=== PATIENT | male | born 1945 | race Caucasian/White ===

== ENCOUNTER 2016-11-18 19:38 | Emergency (ER) | payer MEDICARE, OTHER ==
--- NOTE | 2016-11-18 20:56 | EKG REPORT ---
SEVERITY:- ABNORMAL ECG - SINUS RHYTHM VENTRICULAR PREMATURE COMPLEX PROBABLE LEFT ATRIAL ABNORMALITY NONSPECIFIC INTRAVENTRICULAR CONDUCTION DELAY LEFT VENTRICULAR HYPERTROPHY : Confirmed by: Andrea Leach 18-Nov-2016 20:55:58
[2016-11-18] MEDS ORDERED: ASPIRIN 81 MG TABLET, CHEWABLE PO ONE (21:00)
--- NOTE | 2016-11-18 22:00 | RADIOLOGY REPORT (SQ) ---
EXAM DESCRIPTION: CHEST SINGLE VIEW COMPLETED DATE/TIME: 11/18/2016 9:50 pm REASON FOR STUDY: chest pain COMPARISON: 07/23/2015 EXAM PARAMETERS: NUMBER OF VIEWS: One view. TECHNIQUE: Single frontal radiographic view of the chest acquired. RADIATION DOSE: NA LIMITATIONS: None. FINDINGS: LUNGS AND PLEURA: No opacities, masses or pneumothorax. No pleural effusion. MEDIASTINUM AND HILAR STRUCTURES: No masses. Contour normal. HEART AND VASCULAR STRUCTURES: Heart normal in size. Normal vasculature. BONES: No acute findings. HARDWARE: Pacemaker defibrillator device expected location. OTHER: No other significant finding. IMPRESSION: NO ACUTE RADIOGRAPHIC FINDING IN THE CHEST. TECHNICAL DOCUMENTATION: JOB ID: [id number]
[2016-11-18 22:18] LABS: ABSOLUTE BASOPHILS # (AUTO) 0.1 10^3/uL (0.0-0.2); ABSOLUTE EOSINOPHILS # (AUTO) 0.1 10^3/uL (0.0-0.6); ABSOLUTE LYMPHOCYTES (AUTO) 1.5 10^3/uL (0.5-4.7); ABSOLUTE NEUT (AUTO) 5.6 10^3/uL (1.7-8.2); EOSINOPHILS % (AUTO) 1.6 % (0-6); HEMATOCRIT 41.2 % (37.9-51.0); HEMOGLOBIN 12.9 g/dL (13.5-17.0); HGB HCT DIFFERENCE -2.5; LYMPHOCYTES % (AUTO) 17.7 % (13-45); MEAN CORPUSCULAR HEMOGLOBIN 25.5 pg (27.0-33.4); MEAN CORPUSCULAR HGB CONC 31.3 g/dL (32.0-36.0); MEAN CORPUSCULAR VOLUME 81 fl (80-97); MONOCYTES % (AUTO) 11.9 % (3-13); RED BLOOD COUNT 5.06 10^6/uL (4.35-5.55); RED CELL DISTRIBUTION WIDTH 17.1 % (11.5-14.0); SEGMENTED NEUTROPHILS % (AUTO) 67.8 % (42-78); WHITE BLOOD COUNT 8.2 10^3/uL (4.0-10.5)
[2016-11-18 22:32] LABS: ALANINE AMINOTRANSFERASE 25 U/L (21-72); ALBUMIN 4.1 g/dL (3.5-5.0); ALKALINE PHOSPHATASE 125 U/L (38-126); ANION GAP 14 (5-19); ASPARTATE AMINO TRANSFERASE 16 U/L (17-59); BILIRUBIN,DIRECT 0.3 mg/dL (0.0-0.4); BILIRUBIN,TOTAL 0.5 mg/dL (0.2-1.3); BLOOD UREA NITROGEN 22 mg/dL (7-20); CALCIUM 9.4 mg/dL (8.4-10.2); CARBON DIOXIDE 25 mmol/L (22-30); CHLORIDE 103 mmol/L (98-107); CREATINE KINASE 53 U/L (55-170); CREATININE RESULT 0.87 mg/dL (0.52-1.25); GLUCOSE 175 mg/dL (75-110); SODIUM 141.9 mmol/L (137-145); TOTAL PROTEIN 7.2 g/dL (6.3-8.2)
[2016-11-18 22:44] LABS: CREATINE KINASE MB 1.15 ng/mL (<4.55); TROPONIN I 0.022 ng/mL
--- NOTE | 2016-11-18 22:44 | ER Document Report ---
ED General - General Chief Complaint: Chest Pain Stated Complaint: CHEST PAIN Time Seen by Provider: 11/18/16 22:32 Notes: Patient is a 71-year-old male who comes emergency department for chief complaint of 3 days of congestion in his chest with mild cough, mild sore throat , some possible postnasal drip. He denies shortness of breath but he states he wants to find out if he is getting "fluid on his lungs". He denies chest pain except during coughing episodes, he denies fever. Patient does have an extensive cardiac history including CABG, multiple stents, CHF with ejection fraction of 35%, he takes Lasix, Plavix. He denies any smoking, asthma/COPD history, or history of frequent pneumonias. TRAVEL OUTSIDE OF THE [place] IN LAST 30 DAYS: No - Related Data Allergies/Adverse Reactions: acetaminophen [From Percocet] Allergy (Verified 08/27/12 17:29) aspirin [Aspirin] Allergy (Verified 08/27/12 17:29) iodine [Iodine] Allergy (Verified 08/27/12 17:29) oxycodone HCl [From Percocet] Allergy (Verified 08/27/12 17:29) IV contrast Allergy (Uncoded 08/27/12 17:29) Past Medical History - General Information source: Patient - Social History Smoking Status: Never Smoker Frequency of alcohol use: None Drug Abuse: None Lives with: Family Family History: Other Patient has suicidal ideation: No Patient has homicidal ideation: No - Past Medical History Cardiac Medical History: Reports: Hx Heart Attack - x5, Hx Hypertension Endocrine Medical History: Reports: Hx Diabetes Mellitus Type 2 - IDDM Renal/ Medical History: Denies: Hx Peritoneal Dialysis GI Medical History: Reports: Hx Diverticulitis Past Surgical History: Reports: Hx Cardiac Catheterization, Hx Cardiac Surgery - stents x 6, triple bypass, Hx Cholecystectomy, Hx Coronary Artery Bypass Graft , Hx Coronary Stent - x 10 - Immunizations Hx Diphtheria, Pertussis, Tetanus Vaccination: No Review of Systems - Review of Systems Constitutional: No symptoms reported EENT: See HPI Cardiovascular: See HPI Respiratory: See HPI Gastrointestinal: No symptoms reported Genitourinary: No symptoms reported Male Genitourinary: No symptoms reported Musculoskeletal: No symptoms reported Skin: No symptoms reported Hematologic/Lymphatic: No symptoms reported Neurological/Psychological: No symptoms reported Physical Exam - Vital signs Vitals: Temp Pulse Resp BP Pulse Ox 98.3 F 87 20 171/57 H 93 11/18/16 19:49 11/18/16 19:49 11/18/16 19:49 11/18/16 19:49 11/18/16 19:49 Interpretation: Normal - General General appearance: Appears well, Alert In distress: None - Patient is talkative, alert, well-appearing. He appears younger than his stated age - HEENT Head: Normocephalic, Atraumatic Eyes: Normal Conjunctiva: Normal Extraocular movements intact: Yes Eyelashes: Normal Pupils: PERRL Ears: Normal External canal: Normal Tympanic membrane: Normal Sinus: Other - Tenderness over frontal and maxillary sinuses Nasal: Normal Mouth/Lips: Normal Mucous membranes: Normal Pharynx: Erythema - Algorithm of the posterior pharynx. No: Peritonsillar abscess, Retropharyngeal abscess, Tonsillar hypertrophy, Uvular edema, Potential airway comprom. Neck: Normal. No: Anterior cervical chain, Posterior cervical chain - Respiratory Respiratory status: No respiratory distress. No: Labored, Tachypnea Chest status: Nontender Breath sounds: Normal, Nonproductive cough - Occasional congested sounding nonproductive cough. No: Decreased air movement, Rales, Rhonchi, Stridor, Wheezing Chest palpation: Normal - Cardiovascular Rhythm: Regular. No: Tachycardia Heart sounds: Normal auscultation, S1 appreciated, S2 appreciated Murmur: No - Abdominal Inspection: Normal Distension: No distension Bowel sounds: Normal Tenderness: Nontender Organomegaly: No organomegaly - Back Back: Normal, Nontender - Extremities General upper extremity: Normal inspection, Nontender, Normal color, Normal ROM , Normal temperature General lower extremity: Normal inspection, Nontender, Normal color, Normal ROM , Normal temperature, Normal weight bearing. No: Charles's sign - Neurological Neuro grossly intact: Yes Cognition: Normal Orientation: AAOx4 Veronica Coma Scale Eye Opening: Spontaneous Veronica Coma Scale Verbal: Oriented [place] Coma Scale Motor: Obeys Commands [place] Coma Scale Total: 15 Speech: Normal Motor strength normal: LUE, RUE, LLE, RLE Sensory: Normal - Psychological Associated symptoms: Normal affect, Normal mood - Skin Skin Temperature: Warm Skin Moisture: Dry Skin Color: Normal Course - Re-evaluation Re-evalutation: Patient with mildly hoarse voice and mildly erythematous throat on exam, has tenderness over his sinuses, and occasional congested cough. He is denying any chest pain. He denies shortness of breath. Patient is very conversational and well-appearing otherwise, no tachypnea, full lung sounds, no hypoxia, no tachycardia or hypotension. CBC unremarkable, chemistry unremarkable, BNP below baseline, cardiac enzymes at baseline, EKG with no acute changes, chest x-ray with no acute abnormality. Per patient, patient satisfied with workup, states he just wants coverage to avoid pneumonia or a worsening sinus infection, states that he is ready to leave. Patient states that he understands fully return precautions and states that he will absolutely return if he starts developing chest pain, shortness of breath, or any other worsening symptoms. Patient has good cardiology follow- up. Patient will be covered with doxycycline for sinusitis/pneumonia prevention , patient ambulated easily from the department. - Vital Signs Vital signs: Temp Pulse Resp BP Pulse Ox 98.3 F 87 15 142/58 H 93 11/18/16 19:49 11/18/16 19:49 11/18/16 23:01 11/18/16 23:01 11/18/16 23:01 - Laboratory Result Diagrams: 11/18/16 21:39 11/18/16 21:39 Laboratory results interpreted by me: 11/18/16 11/18/16 11/18/16 21:39 21:39 21:39 Hgb 12.9 L MCH 25.5 L MCHC 31.3 L RDW 17.1 H BUN 22 H Glucose 175 H AST 16 L Creatine Kinase 53 L NT-Pro-B Natriuret Pep 1060 H Discharge - Discharge Clinical Impression: Cough, Sinus congestion Upper respiratory infection Qualifiers: URI type: unspecified URI Qualified Code(s): J06.9 - Acute upper respiratory infection, unspecified Condition: Stable Disposition: HOME, SELF-CARE Additional Instructions: Workup does not show any congestive heart failure exacerbation or any other concerning abnormalities. Physical examination and symptoms are most consistent with an upper respiratory viral infection and also sinus infection. Take the antibiotics as prescribed, follow-up closely with your primary care provider. Return to emergency department for any concerning or worsening symptoms including difficulty breathing, fever, chest pain, or any other concerning symptoms. Prescriptions: Doxycycline Hyclate 100 mg PO BID #14 capsule Referrals: JIM AGUILAR MD [Primary Care Provider] - Follow up as needed
[2016-11-18] MEDS ORDERED: DOXYCYCLINE HYCLATE 100 MG TABLET PO ONE (23:36)
[2016-11-18 23:53] VITALS: BP 142/58
== END 2016-11-18 23:53 | disposition home or self-care (01) ==
LOC: ER 19:38
DX: J06.9 Acute upper respiratory infection, unspecified (principal); R09.89 Other specified symptoms and signs involving the circulatory and respiratory systems; R05 Cough; J02.9 Acute pharyngitis, unspecified; R49.0 Dysphonia; R09.81 Nasal congestion; R07.89 Other chest pain; I11.0 Hypertensive heart disease with heart failure; I50.9 Heart failure, unspecified; I25.2 Old myocardial infarction; Z98.61 Coronary angioplasty status; Z95.1 Presence of aortocoronary bypass graft; Z79.899 Other long term (current) drug therapy; Z79.02 Long term (current) use of antithrombotics/antiplatelets; Z88.5 Allergy status to narcotic agent; Z88.6 Allergy status to analgesic agent; Z91.041 Radiographic dye allergy status
CPT/HCPCS: 93005; 99285; 36415; 82553; 82550; 85025; 80053; 84484; 83880; 71010; 93010; A9270

== ENCOUNTER 2018-01-01 07:40 | Emergency (ER) | payer MEDICARE, OTHER ==
--- NOTE | 2018-01-01 08:51 | ER Document Report ---
ED General - General Chief Complaint: Abdominal Pain Stated Complaint: ABDOMINAL PAIN Mode of Arrival: Ambulatory Information source: Patient TRAVEL OUTSIDE OF THE [place] IN LAST 30 DAYS: No - HPI Notes: 72-year-old male with a history of CABG, CHF, diabetes type 2 cardiac stents, EF 65% and diverticulitis presents to the emergency room for complaints of lower abdominal pain 3 days, worse this morning, states that pain comes in waves and is jabbing pain. Patient states he has not been eating much in the last 3 days that has been drinking. States he did use the bathroom last night which did help with his pain. reports that patient was febrile last night , was warm to touch, no temperature was taken. has not tried any over-the- counter medications. Denies radiation of pain. Patient reports he had a history of diverticulitis 5 years ago. Denies fevers, chills, chest pain, palpitations, shortness of breath, dyspnea, nausea, vomiting, diarrhea, hematuria,blurred vision, double vision, loss of vision, speech changes, LH, dizziness, syncope, headaches, wheezing, ST, URI, neck pain, weakness, bowel or bladder dysfunction, saddle anesthesia, numbness or tingling in bilateral upper or lower extremities equally, muscle paralysis, weakness in bilateral upper or lower extremities equally or rash. Denies IV drug use. Patient is seen by Dr. Hutchins who is his fueler in [place] for his diabetes and chronic renal failure, Dr. Rubio in [place] as his diabetic physician, Dr. Aguilar is his primary care provider in [facility] [place] and Dr. Garrett Cain is his vascular surgeon for having stents placed in his lower legs for PVD - Related Data Allergies/Adverse Reactions: aspirin [Aspirin] Allergy (Verified 08/27/12 17:29) cephalexin [From Keflex] Allergy (Verified 01/01/18 07:43) iodine [Iodine] Allergy (Verified 08/27/12 17:29) oxycodone HCl [From Percocet] Allergy (Verified 08/27/12 17:29) IV contrast Allergy (Uncoded 08/27/12 17:29) Past Medical History - General Information source: Patient, Friend - Social History Smoking Status: Unknown if Ever Smoked Family History: Reviewed & Not Pertinent, Other - Past Medical History Cardiac Medical History: Reports: Hx Heart Attack - x5, Hx Hypertension Endocrine Medical History: Reports: Hx Diabetes Mellitus Type 2 - IDDM Renal/ Medical History: Denies: Hx Peritoneal Dialysis GI Medical History: Reports: Hx Diverticulitis Past Surgical History: Reports: Hx Cardiac Catheterization, Hx Cardiac Surgery - stents x 6, triple bypass, Hx Cholecystectomy, Hx Coronary Artery Bypass Graft , Hx Coronary Stent - x 10 - Immunizations Hx Diphtheria, Pertussis, Tetanus Vaccination: No Review of Systems - Review of Systems Constitutional: No symptoms reported EENT: No symptoms reported Cardiovascular: No symptoms reported Respiratory: No symptoms reported Gastrointestinal: See HPI Genitourinary: No symptoms reported Male Genitourinary: No symptoms reported Musculoskeletal: No symptoms reported Skin: No symptoms reported Hematologic/Lymphatic: No symptoms reported Neurological/Psychological: No symptoms reported Physical Exam - Vital signs Vitals: Temp Pulse Resp BP Pulse Ox 98.0 F 85 16 133/49 H 97 01/01/18 07:47 01/01/18 07:47 01/01/18 07:47 01/01/18 07:47 01/01/18 07:47 - Notes Notes: PHYSICAL EXAMINATION: GENERAL: Well-appearing, well-nourished and in no acute distress. HEAD: Atraumatic, normocephalic. EYES: Pupils equal round and reactive to light, extraocular movements intact, sclera anicteric, conjunctiva are normal. ENT: Nares patent, oropharynx clear without exudates. Moist mucous membranes. NECK: Normal range of motion, supple without lymphadenopathy LUNGS: Breath sounds clear to auscultation bilaterally and equal. No wheezes rales or rhonchi. HEART: Regular rate and rhythm without murmurs ABDOMEN: Soft, nondistended abdomen. Right lower and left lower quadrant palpation with rebound on the right, no guarding. No masses appreciated. No CVA tenderness noted bilaterally Musculoskeletal: Normal range of motion, no pitting or edema. No cyanosis. NEUROLOGICAL: Cranial nerves grossly intact. Normal speech, normal gait. Normal sensory, motor exams PSYCH: Normal mood, normal affect. SKIN: Warm, Dry, normal turgor, no rashes or lesions noted. Course - Re-evaluation Re-evalutation: 01/01/18 16:37 72-year-old male with an extensive cardiac history presents for evaluation of lower abdominal pain. Afebrile, vitals stable and in no distress. CBC negative for leukocytosis, noted anemia. BNP 938 which is below his baseline he is asymptomatic. Creatinine is 0.99 which has been the lowest for him. Lactic is 1.6, lipase 32.6, potassium 4.6. Patient given IV fluids. Urinalysis does show glucose, no hematuria, leukocytosis. Occult stool negative , C. difficile negative. CT abdomen pelvis with IV and oral contrast does show sigmoid diverticulitis. Has had loose stool. Was concerned about C. difficile , will start patient on Flagyl and Cipro now and sent home with outpatient prescriptions. Advised to follow-up with primary care provider for diverticulitis. Discussed with patient the importance of following up with gastroenterology for diverticulitis within 3 days. Advised to eat yogurt to prevent loosening stool and to also take probiotics 2 hours after taking antibiotics to replenish normal gut Paulette. If he experiences any worsening abdominal pain, notices any black tarry stool, fever, cp, sob, n/v/d, or any other worsening symptoms to return to the emergency room immediately. Advised patient double up on his Lasix orally at home since he did not want IV Lasix in the ER due to having increased urination a low-salt diet. after performing a Medical Screening Examination, I estimate there is LOW risk for ACUTE APPENDICITIS, BOWEL OBSTRUCTION, ACUTE CHOLECYSTITIS, PERFORATED DIVERTICULITIS , INCARCERATED HERNIA, PANCREATITIS, TESTICULAR TORSION or PERFORATED ULCER, thus I consider the discharge disposition reasonable. Also, there is no evidence or peritonitis, sepsis, or toxicity. I have reevaluated this patient multiple times and no significant life threatening changes are noted. The patient and I have discussed the diagnosis and risks, and we agree with discharging home with close follow-up with the understanding that symptoms and presentations can change. We also discussed returning to the Emergency Department immediately if new or worsening symptoms occur. We have discussed the symptoms which are most concerning (e.g., bloody stool, fever, changing or worsening pain, intractable vomiting - standard verbal up date) that necessitate immediate return. - Vital Signs Vital signs: Temp Pulse Resp BP Pulse Ox 99.4 F 85 16 151/59 H 98 01/01/18 14:46 01/01/18 07:47 01/01/18 14:18 01/01/18 14:18 01/01/18 14:18 - Laboratory Result Diagrams: 01/01/18 09:30 01/01/18 09:30 Laboratory results interpreted by me: 01/01/18 01/01/18 01/01/18 09:30 09:30 09:30 Hgb 10.4 L Hct 33.3 L MCV 73 L MCH 22.9 L MCHC 31.2 L RDW 16.9 H Seg Neutrophils % 78.4 H Lymphocytes % 10.3 L BUN 23 H Glucose 122 H POC Glucose AST 15 L NT-Pro-B Natriuret Pep 938 H Urine Glucose (UA) 01/01/18 01/01/18 12:00 14:26 Hgb Hct MCV MCH MCHC RDW Seg Neutrophils % Lymphocytes % BUN Glucose POC Glucose 135 H AST NT-Pro-B Natriuret Pep Urine Glucose (UA) >=500 H Discharge - Discharge Clinical Impression: Diverticulitis, Mild congestive heart failure Condition: Stable Disposition: HOME, SELF-CARE Instructions: Abdominal Pain ([facility]), Diverticulitis ([facility]) Additional Instructions: You were seen today for focal pain in your left lower quadrant. Your labs, exam , and imaging suggest a diagnosis of diverticulitis. This is an inflammation of a part of your colon. You are being started on antibiotics to treat this infection and inflammation. Please take all of them as directed and complete them even if your symptoms resolve. 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 Program for warehouse laborer. return to the emergency department immediately if you develop worsening pain, persistent vomiting, began having bloody stools, develop a fever of greater than 101F, or have any other symptoms that are concerning to you. Take antibiotics with food to prevent loose stool. Return immediately for any new or worsening symptoms.Follow a low-salt diet. Double up on your Lasix tonight when you get home. Continue a low sodium diet and high potassium diet with food such as bananas. Follow up with primary care provider, call tomorrow to make followup appointment. Prescriptions: Ciprofloxacin HCl [Cipro 500 mg Tablet] 500 mg PO BID #20 tablet Metronidazole [Flagyl 500 mg Tablet] 500 mg PO Q6H #28 tablet Referrals: COLLEEN HUTCHINS MD [NO LOCAL MD] - Follow up as needed ERIK DE LA FUENTE MD [ACTIVE STAFF] - Follow up in 3-5 days MARTHA RUBIO MD [NO LOCAL MD] - Follow up as needed JIM AGUILAR MD [Primary Care Provider] - Follow up in 3-5 days TANJA AVERY MD [EMERITUS] - Follow up in 3-5 days
[2018-01-01] MEDS ORDERED: NORMAL SALINE 1000 ML 1,000 ML IV PRN (08:52)
[2018-01-01 10:14] LABS: ABSOLUTE BASOPHILS # (AUTO) 0.1 10^3/uL (0.0-0.2); ABSOLUTE EOSINOPHILS # (AUTO) 0.1 10^3/uL (0.0-0.6); ABSOLUTE NEUT (AUTO) 7.5 10^3/uL (1.7-8.2); BASOPHILS % (AUTO) 0.5 % (0-2); EOSINOPHILS % (AUTO) 0.8 % (0-6); HEMATOCRIT 33.3 % (37.9-51.0); HEMOGLOBIN 10.4 g/dL (13.5-17.0); LYMPHOCYTES % (AUTO) 10.3 % (13-45); MEAN CORPUSCULAR HEMOGLOBIN 22.9 pg (27.0-33.4); MEAN CORPUSCULAR HGB CONC 31.2 g/dL (32.0-36.0); MEAN CORPUSCULAR VOLUME 73 fl (80-97); PLATELET COUNT 218 10^3/uL (150-450); RED BLOOD COUNT 4.55 10^6/uL (4.35-5.55); RED CELL DISTRIBUTION WIDTH 16.9 % (11.5-14.0); SEGMENTED NEUTROPHILS % (AUTO) 78.4 % (42-78); TOTAL CELLS COUNTED % (AUTO) 100 %; WHITE BLOOD COUNT 9.6 10^3/uL (4.0-10.5)
[2018-01-01 10:16] LABS: ALANINE AMINOTRANSFERASE 24 U/L (21-72); ALBUMIN 3.9 g/dL (3.5-5.0); ALKALINE PHOSPHATASE 82 U/L (38-126); ANION GAP 14 (5-19); ASPARTATE AMINO TRANSFERASE 15 U/L (17-59); BILIRUBIN,DIRECT 0.2 mg/dL (0.0-0.4); BILIRUBIN,TOTAL 0.8 mg/dL (0.2-1.3); BLOOD UREA NITROGEN 23 mg/dL (7-20); CALCIUM 9.1 mg/dL (8.4-10.2); CARBON DIOXIDE 28 mmol/L (22-30); CHLORIDE 102 mmol/L (98-107); GLUCOSE 122 mg/dL (75-110); LIPASE 32.6 U/L (23-300); POTASSIUM 4.6 mmol/L (3.6-5.0); SODIUM 143.6 mmol/L (137-145); TOTAL PROTEIN 6.7 g/dL (6.3-8.2)
[2018-01-01 12:32] LABS: APPEARANCE,URINE CLEAR; BILIRUBIN,URINE NEGATIVE (NEGATIVE); COLOR,URINE YELLOW; GLUCOSE, URINE >=500 mg/dL (NEGATIVE); KETONES,URINE NEGATIVE (NEGATIVE); LEUKOCYTE ESTERASE,URINE NEGATIVE (NEGATIVE); NITRITE,URINE NEGATIVE (NEGATIVE); PROTEIN,URINE NEGATIVE (NEGATIVE); URINE SPECIFIC GRAVITY 1.018; UROBILINOGEN,URINE NEGATIVE mg/dL (<2.0)
--- NOTE | 2018-01-01 12:54 | RADIOLOGY REPORT (SQ) ---
EXAM DESCRIPTION: CT ABD/PELVIS WITH IV ORAL COMPLETED DATE/TIME: 01/01/2018 12:44 pm REASON FOR STUDY: RLQ, LLQ abd pain, history of diverticulitis COMPARISON: None. TECHNIQUE: CT scan of the abdomen and pelvis performed with intravenous and oral contrast using rani vickie scanning technique with dynamic intravenous contrast injection. Images reviewed with lung, soft t issue, and bone windows. Reconstructed coronal and sagittal MPR images reviewed. Delayed images for e valuation of the urinary system also acquired. All images stored on PACS. All CT scanners at this facility use dose modulation, iterative reconstruction, and/or weight based d osing when appropriate to reduce radiation dose to as low as reasonably achievable (ALARA). [facility]: Dose Right [facility]: CareDose [facility]: Dose Right [facility]: Teradose 4D [facility]: Mix & Meet CONTRAST TYPE AND DOSE: contrast/concentration: Isovue 350.00 mg/ml; Total Contrast Delivered: 85.0 ml; Total Saline Delivered: 68.0 ml RENAL FUNCTION: BUN 23 creatinine 1.0 RADIATION DOSE: CT Rad equipment meets quality standard of care and radiation dose reduction techniq ues were employed. CTDIvol: 9.2 - 12.8 mGy. DLP: 1325 mGy-cm. . LIMITATIONS: None. FINDINGS: LOWER CHEST: Pacemaker. No acute findings. LIVER: Normal size. No masses. No dilated ducts. SPLEEN: Normal size. No focal lesions. PANCREAS: No masses. No significant calcifications. No adjacent inflammation or peripancreatic fluid collections. Pancreatic duct not dilated. GALLBLADDER: Surgically absent. ADRENAL GLANDS: No significant masses or asymmetry. RIGHT KIDNEY AND URETER: No solid masses. Vascular calcifications. No definite urinary tract stone s. No hydronephrosis or hydroureter. LEFT KIDNEY AND URETER: No solid masses. Vascular calcifications. No definite urinary tract stones . No hydronephrosis or hydroureter. AORTA AND VESSELS: No aneurysm. RETROPERITONEUM: No retroperitoneal adenopathy, hemorrhage or masses. BOWEL AND PERITONEAL CAVITY: Mesenteric inflammation associated with segment of sigmoid colon contain ing diverticulum. No organized gas fluid collection. No free air or ascites. APPENDIX: Not visualized. PELVIS: No significant masses. Normal bladder. No free fluid. ABDOMINAL WALL: No masses. No hernias. BONES: No acute findings. OTHER: No other significant finding. IMPRESSION: Sigmoid diverticulitis. TECHNICAL DOCUMENTATION: JOB ID: [id number] Quality ID # [id number]: Final reports with documentation of one or more dose reduction techniques (e.g., Au tomated exposure control, adjustment of the mA and/or kV according to patient size, use of iterative reconstruction technique) 2010 [employer]- All Rights Reserved Reading location - IP/workstation name: [email or web address]
[2018-01-01] MEDS ORDERED: MORPHINE SULFATE 10 MG/ML INJ IV ONE (13:58)
[2018-01-01] MEDS ORDERED: CIPROFLOXACIN HCL 500 MG TABLET PO ONE (13:59)
[2018-01-01] MEDS ORDERED: METRONIDAZOLE 500 MG TABLET PO ONE (13:59)
[2018-01-01] MEDS ORDERED: FUROSEMIDE INJ/PF 40 MG/4 ML SDV IV ONE (14:25)
[2018-01-01 14:47] VITALS: BP 151/59
[2018-01-01] MEDS ORDERED: METRONIDAZOLE 500 MG/NS RTU 500 MG/100 ML RTUPB IV ONE (15:00)
== END 2018-01-01 15:15 | disposition home or self-care (01) ==
LOC: ER 07:40
DX: K57.32 Diverticulitis of large intestine without perforation or abscess without bleeding (principal); I13.0 Hypertensive heart and chronic kidney disease with heart failure and stage 1 through stage 4 chronic kidney disease, or unspecified chronic kidney disease; I50.9 Heart failure, unspecified; N18.9 Chronic kidney disease, unspecified; E11.22 Type 2 diabetes mellitus with diabetic chronic kidney disease; D64.9 Anemia, unspecified; R19.4 Change in bowel habit; I25.2 Old myocardial infarction; Z95.5 Presence of coronary angioplasty implant and graft; Z95.1 Presence of aortocoronary bypass graft; Z90.49 Acquired absence of other specified parts of digestive tract; Z79.899 Other long term (current) drug therapy
CPT/HCPCS: 99284; 96361; 96375; 96365; 36415; 82962; 83605; 83690; 85025; 82272; 80053; 81001; 87493; 83880; 74177; A9270; J2270; J7030

== ENCOUNTER 2018-03-20 07:26 | Day surgery (SDC) | payer MEDICARE, OTHER ==
[~2018-03-20 07:26] MED LIST: CHONDR SU A NA/HYALUR INTRAOC KIT (SURGICARE) ONE; EPINEPHRINE INJ/PF 1 MG/1 ML AMPULE ONE; KETOROLAC TROMETHAMINE 0.45% 4 DROP/0.4 ML DROPERETTE OD PRN; LIDOCAINE 1%/PHENYLEPHRINE 1.5% 1 ML VIAL ONE; MIDAZOLAM 2 MG/2 ML INJ ONE
[2018-03-20] MEDS: TETRACAINE HCL 0.5% OPH SOLN 4 ML OD PRN ×3 (08:04→08:31)
[2018-03-20] MEDS: BESIFLOXACIN HCL 0.6% OPH SUSP 5 ML BOTTLE OD PRN ×4 (08:05→08:58)
[2018-03-20] MEDS: CYCLOPENTOLATE 0.2%/PHENYLEPHRINE 1% OPH SOLN 2 ML OD PRN ×3 (08:05→08:26)
[2018-03-20] MEDS: TROPICAMIDE 1% OPH SOLN 3 ML OD PRN ×3 (08:05→08:26)
--- NOTE | 2018-03-20 14:21 | [facility] OPERATIVE REPORT E ---
[facility] Operative Report NAME: JUAN HOLLY AGE: 72Y DATE OF SURGERY: 03/20/2018 ROOM: PREOPERATIVE DIAGNOSIS: CATARACT, RIGHT EYE. POSTOPERATIVE DIAGNOSIS: CATARACT, RIGHT EYE. OPERATION: Cataract extraction with insertion of an IOL of the right eye. SURGEON: MARY VERAS M.D. ANESTHESIA: Topical. PROCEDURE: After obtaining appropriate consent, the patient's right eye was prepped and draped in sterile fashion as well as the surgeon in a sterile manner and cataract surgery was started. First a paracentesis blade was used to make a side-port incision. Viscoelastic was used to inflate the anterior chamber. Next a 2.4 mm incision was made with a 2.4 mm blade, clear corneal temporally. A continuous capsulorrhexis was made using a cystotome and Utrata forceps. Following this hydrodissection was carried out to make the lens fully loose and mobile and it was rotated 90 degrees. Following this, a lgsuih-crz-aglncaf technique was used to phacoemulsify the lens with a CDE of 6.32. The remaining cortex was removed with irrigation/aspiration. Provisc was instilled into the capsular bag to inflate the bag. A SN60WF, 23.5 diopter lens was placed. The remaining viscoelastic material was removed with irrigation/aspiration. Following this, the incision was found to be watertight. Besivance was instilled into the eye and a protective shield was placed over the eye. The patient returned to the postoperative recovery in stable condition. DICTATING PHYSICIAN: MARY VERAS M.D. [id number] PHY#: [id number] ID: [id number] JOB#: [id number] ACCT: [id number] cc:MARY VERAS M.D. >
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
== END 2018-03-20 09:46 | disposition home or self-care (01) ==
LOC: SC 07:26
PROVIDERS: ATTEND Internal Medicine
DX: H25.813 Combined forms of age-related cataract, bilateral (principal); H57.03 Miosis; H01.002 Unspecified blepharitis right lower eyelid; H01.005 Unspecified blepharitis left lower eyelid; E11.3293 Type 2 diabetes mellitus with mild nonproliferative diabetic retinopathy without macular edema, bilateral; M19.90 Unspecified osteoarthritis, unspecified site; E78.00 Pure hypercholesterolemia, unspecified; I50.9 Heart failure, unspecified; I25.2 Old myocardial infarction; Z79.4 Long term (current) use of insulin; Z87.891 Personal history of nicotine dependence; Z88.6 Allergy status to analgesic agent; Z88.5 Allergy status to narcotic agent; Z79.82 Long term (current) use of aspirin; Z79.84 Long term (current) use of oral hypoglycemic drugs; Z79.899 Other long term (current) drug therapy; Z91.040 Latex allergy status; Z95.810 Presence of automatic (implantable) cardiac defibrillator
CPT/HCPCS: 66984; 82962; V2632; J2250; J3490 ×2; A9270; J0171; J2370; 142

== ENCOUNTER 2018-04-19 06:49 | Day surgery (SDC) | payer MEDICARE, OTHER ==
[~2018-04-19 06:49] MED LIST changes: -CHONDR SU A NA/HYALUR INTRAOC KIT (SURGICARE) ONE; -EPINEPHRINE INJ/PF 1 MG/1 ML AMPULE ONE; -KETOROLAC TROMETHAMINE 0.45% 4 DROP/0.4 ML DROPERETTE OD PRN; +KETOROLAC TROMETHAMINE 0.45% 4 DROP/0.4 ML DROPERETTE OS PRN; -LIDOCAINE 1%/PHENYLEPHRINE 1.5% 1 ML VIAL ONE; -MIDAZOLAM 2 MG/2 ML INJ ONE
[2018-04-19] MEDS: TETRACAINE HCL 0.5% OPH SOLN 4 ML OS PRN ×3 (07:05→07:48)
[2018-04-19] MEDS: TROPICAMIDE 1% OPH SOLN 3 ML OS PRN ×3 (07:06→07:36)
[2018-04-19] MEDS: CYCLOPENTOLATE 0.2%/PHENYLEPHRINE 1% OPH SOLN 2 ML OS PRN ×3 (07:06→07:36)
[2018-04-19] MEDS: BESIFLOXACIN HCL 0.6% OPH SUSP 5 ML BOTTLE OS PRN ×4 (07:06→08:23)
[2018-04-19] MEDS ORDERED: MIDAZOLAM 2 MG/2 ML INJ ONE (07:18)
[2018-04-19] MEDS ORDERED: LIDOCAINE 1% INJ-PF (10 MG/ML) 30 ML SDV ONE (07:22)
[2018-04-19] MEDS ORDERED: CHONDR SU A NA/HYALUR INTRAOC KIT (SURGICARE) ONE (07:23)
[2018-04-19] MEDS ORDERED: EPINEPHRINE INJ/PF 1 MG/1 ML AMPULE ONE (07:38)
[2018-04-19] MEDS ORDERED: LIDOCAINE 1%/PHENYLEPHRINE 1.5% 1 ML VIAL ONE (07:38)
--- NOTE | 2018-04-19 19:57 | [facility] OPERATIVE REPORT E ---
[facility] Operative Report NAME: JUAN HOLLY AGE: 72Y DATE OF SURGERY: 04/19/2018 ROOM: PREOPERATIVE DIAGNOSIS: CATARACT, LEFT EYE. Miosis left eye POSTOPERATIVE DIAGNOSIS: CATARACT, LEFT EYE. Miosis Left eye OPERATION: Complex Cataract extraction with insertion of an IOL of the left eye and use of a maluygan ring SURGEON: MARY VERAS M.D. ANESTHESIA: Topical. PROCEDURE: After obtaining appropriate consent, the patient's left eye was prepped and draped in sterile fashion as well as the surgeon in a sterile manner and cataract surgery was started. First a paracentesis blade was used to make a side-port incision. Viscoelastic was used to inflate the anterior chamber. Next a 2.4 mm incision was made with a 2.4 mm blade, clear corneal temporally. A continuous capsulorrhexis was made using a cystotome and Utrata forceps. Following this hydrodissection was carried out to make the lens fully loose and mobile and it was rotated 90 degrees. Following this, a [id number]-[id number] technique was used to phacoemulsify the lens with a CDE of 10.81. The remaining cortex was removed with irrigation/aspiration. Provisc was instilled into the capsular bag to inflate the bag. A SN60WF, 24.5 diopter lens was placed. The remaining viscoelastic material was removed with irrigation/aspiration. Following this, the incision was found to be watertight. Besivance was instilled into the eye and a protective shield was placed over the eye. The patient returned to the postoperative recovery in stable condition. prior to making the capsulorhexis a maluygan ring was inseerted due to poor pupillary dilation. this was removed at the end of the case. DICTATING PHYSICIAN: MARY VERAS M.D. [id number] PHY#: [id number] ID: [id number] JOB#: [id number] ACCT: [id number] cc:MARY VERAS M.D. > MTDD
--- NOTE | 2018-04-19 20:01 | [facility] DISCHARGE SUMMARY E ---
[facility] Discharge Summary NAME: JUAN HOLLY AGE: 72Y ADMITTED: 04/19/2018 DISCHARGED: This is a 72-year-old who underwent cataract extraction of the left eye, complex, with use of a Malyugin ring due to poor pupillary dilation of 4mm. DIAGNOSES: 1. CATARACT LEFT EYE. 2. PUPIL MIOSIS LEFT EYE. He is to be on a regular diet. No bending at the waist, no heavy lifting. He underwent surgery because of glare from sunlight making it difficult to drive. He should use his Pred Forte, Ketorolac , and Vigamox at 3:00 p.m. and 8:00 p.m., and sleep with a rigid shield. I will see him for his 1 day postop tomorrow. DICTATING PHYSICIAN: MARY VERAS M.D. [id number] PHY#: [id number] ID: [id number] JOB#: [id number] ACCT: [id number] cc:MARY VERAS M.D. > MTDD
== END 2018-04-19 09:06 | disposition home or self-care (01) ==
LOC: SC 06:49
PROVIDERS: ATTEND Internal Medicine
DX: H25.812 Combined forms of age-related cataract, left eye (principal); H57.03 Miosis
CPT/HCPCS: 82962; 66982; V2632; J2250; J3490 ×3; A9270; J0171; J2370; 142

== ENCOUNTER 2018-05-21 11:00 | Observation (INO) | payer MEDICARE, OTHER ==
[2018-05-21 12:27] LABS: ABSOLUTE BASOPHILS # (AUTO) 0.1 10^3/uL (0.0-0.2); ABSOLUTE EOSINOPHILS # (AUTO) 0.2 10^3/uL (0.0-0.6); ABSOLUTE LYMPHOCYTES (AUTO) 1.2 10^3/uL (0.5-4.7); ABSOLUTE MONOCYTES (AUTO) 0.7 10^3/uL (0.1-1.4); ABSOLUTE NEUT (AUTO) 4.4 10^3/uL (1.7-8.2); BASOPHILS % (AUTO) 1.4 % (0-2); EOSINOPHILS % (AUTO) 3.8 % (0-6); HEMATOCRIT 32.4 % (37.9-51.0); HEMOGLOBIN 10.2 g/dL (13.5-17.0); LYMPHOCYTES % (AUTO) 17.4 % (13-45); MEAN CORPUSCULAR HEMOGLOBIN 22.2 pg (27.0-33.4); MEAN CORPUSCULAR HGB CONC 31.4 g/dL (32.0-36.0); MEAN CORPUSCULAR VOLUME 71 fl (80-97); MONOCYTES % (AUTO) 10.4 % (3-13); PLATELET COUNT 204 10^3/uL (150-450); RED BLOOD COUNT 4.58 10^6/uL (4.35-5.55); TOTAL CELLS COUNTED % (AUTO) 100 %; WHITE BLOOD COUNT 6.6 10^3/uL (4.0-10.5)
--- NOTE | 2018-05-21 12:54 | RADIOLOGY REPORT (SQ) ---
EXAM DESCRIPTION: TOE RIGHT COMPLETED DATE/TIME: 05/21/2018 12:32 pm REASON FOR STUDY: ? osteo COMPARISON: None. NUMBER OF VIEWS: Three views. TECHNIQUE: AP, lateral, and oblique images acquired of the right first toe. LIMITATIONS: None. FINDINGS: MINERALIZATION: Normal. BONES: No acute fracture or dislocation. There is subtle erosion and periosteal reaction about the p lantar aspect of the distal phalanx of the right great toe. JOINTS: No effusions. SOFT TISSUES: Soft tissue swelling about the right great toe. OTHER: No other significant finding. IMPRESSION: There is subtle erosion and periosteal reaction about the plantar aspect of the distal p halanx of the right great toe suspicious for osteomyelitis. Consider MRI or follow-up radiographs in 7 to 10 days to further evaluate. COMMENT: SITE OF TRAUMA/COMPLAINT MARKED/STAMP COMPLETED: YES. TECHNICAL DOCUMENTATION: JOB ID: [id number] [employer]- All Rights Reserved Reading location - IP/workstation name: [email or web address]
[2018-05-21] MEDS ORDERED: VANCOMYCIN HCL INJ 1000 MG VIAL IV ONE (13:27)
[2018-05-21] MEDS ORDERED: PIPERACILLIN/TAZOBACTAM 3.375 GM VIAL IV ONE (13:27)
--- NOTE | 2018-05-21 13:32 | ER Document Report ---
ED Extremity Problem, Lower - General Chief Complaint: Toe Injury Stated Complaint: TOE INJURY Time Seen by Provider: 05/21/18 11:40 Mode of Arrival: Ambulatory Information source: Patient Notes: Patient is a 72-year-old male comes emergency room complaining of right great toe pain. Patient states that 3 weeks ago he caught a nail up under the bottom of his right great toe. He is an insulin-dependent diabetic and so he started to soak it right away he contacted or saw his medicare sales executive and he ordered him Bactrim. Patient has been taking the medication and soaking them quite often to the point where he is having skin start to peel. He states that he was running out of the antibiotics so his primary care provider called him some in and no one has really seen this toe physically since the medicare sales executive. Patient contacted his injection molding supervisor who informed him that they were closing the doors today at 1:00 and will be out of town for 2 weeks. He suggested the patient that he come to ER and get an x-ray of the toe just to make sure nothing else was wrong. Patient states the toe is actually gotten better and the swelling is gone down quite a bit. The pain is not as bad as it was but he has severe neuropathy and he has a little feeling anyway. He has significant history for recent femoropopliteal pain in the right leg. He has medical problems that are to include multiple heart attacks. Patient denies having any recent fevers but states that he has had them in the past and 3 weeks they have been mostly low- grade. TRAVEL OUTSIDE OF THE [place] IN LAST 30 DAYS: No - HPI Location: Foot, Great Toe Occurred: Other - 3 weeks ago Where: Home Onset/Duration: Sudden, Persistent Quality of pain: Achy Severity: Moderate Context: Laceration Recent injury: Yes Exacerbated by: Movement, Walking Relieved by: Rest - Related Data Allergies/Adverse Reactions: aspirin [Aspirin] Allergy (Verified 05/21/18 11:01) cephalexin [From Keflex] Allergy (Verified 05/21/18 11:01) Hives iodine [Iodine] Allergy (Verified 05/21/18 11:01) Hives latex Allergy (Verified 05/21/18 11:01) Hives oxycodone HCl [From Percocet] Adverse Reaction (Verified 05/21/18 11:01) Hives IV contrast Allergy (Uncoded 05/21/18 11:01) Hives Past Medical History - General Information source: Patient - Social History Smoking Status: Never Smoker Cigarette use (# per day): No Chew tobacco use (# tins/day): No Smoking Education Provided: No Frequency of alcohol use: Rare Lives with: Family, Spouse/Significant other Family History: Reviewed & Not Pertinent, Other Patient has suicidal ideation: No Patient has homicidal ideation: No - Past Medical History Cardiac Medical History: Reports: Hx Heart Attack - X6, Hx Hypertension Pulmonary Medical History: Denies: Hx Asthma Neurological Medical History: Denies: Hx Cerebrovascular Accident, Hx Seizures Endocrine Medical History: Reports: Hx Diabetes Mellitus Type 2 - IDDM Renal/ Medical History: Denies: Hx Peritoneal Dialysis GI Medical History: Reports: Hx Diverticulitis. Denies: Hx Hepatitis, Hx Hiatal Hernia, Hx Ulcer Infectious Medical History: Denies: Hx Hepatitis Past Surgical History: Reports: Hx Cardiac Catheterization, Hx Cardiac Surgery - stents x 6, triple bypass, Hx Cholecystectomy, Hx Coronary Artery Bypass Graft, Hx Coronary Stent - x 10, Hx Open Heart Surgery, Hx Pacemaker - Immunizations Hx Diphtheria, Pertussis, Tetanus Vaccination: No Review of Systems - Review of Systems Constitutional: No symptoms reported EENT: No symptoms reported Cardiovascular: No symptoms reported Respiratory: No symptoms reported Gastrointestinal: No symptoms reported Genitourinary: No symptoms reported Male Genitourinary: No symptoms reported Musculoskeletal: Joint pain, Joint swelling Skin: See HPI, Change in color, Other Hematologic/Lymphatic: No symptoms reported Neurological/Psychological: No symptoms reported -: Yes All other systems reviewed and negative Physical Exam - Vital signs Vitals: Temp Pulse Resp BP Pulse Ox 97.5 F 74 16 142/57 H 96 05/21/18 11:03 05/21/18 11:03 05/21/18 11:03 05/21/18 11:03 05/21/18 11:03 Interpretation: Hypertensive - Notes Notes: PHYSICAL EXAMINATION: GENERAL: Patient is a well-nourished well-developed 72-year-old male who is in no apparent distress on physical exam today. Does appear to be somewhat unc omfortable or slightly anxious. HEAD: Atraumatic, normocephalic. NECK: Normal range of motion, supple without lymphadenopathy LUNGS: Breath sounds clear to auscultation bilaterally and equal. No wheezes rales or rhonchi. HEART: Regular rate and rhythm without murmurs Musculoskeletal: Examination of patient's area of concern is his right great toe. First noticeable thing about his right great toe has he is having some desquamation of the skin where it is peeling from overly soaking it too aggressively. He states it is best just as I have. The second noticeable thing is his discoloration is moderately red slightly warm to touch difficult to tell if painful patient does not feel sharp pain secondary to his neuropathy. He has flexion and extension in the toes. He does appear to have good cap refill less than 2 seconds in the toe bed. On the basis of presentation it would did not appear to be really bad at this time. NEUROLOGICAL: Normal speech, normal gait. Normal sensory, motor exams PSYCH: Normal mood, normal affect. SKIN: See musculoskeletal above Course - Re-evaluation Re-evalutation: 05/21/18 13:38 Patient x-ray came back and read the following there is a subtle erosion and periosteal reaction about the plantar aspect of the distal phalanx of the right great toe suspicious for osteomyelitis. Consider MRI or follow-up radiographs in 7-10 days for further evaluation. I discussed the case with Dr. Lakshmi Antonio my attending today and she agrees the patient needs to be admitted for IV antibiotics and then surgical consult. I have discussed this with the patient and his and they are also in favor of this. Patient's primary care provider is Dr. Allen out of [facility]. 05/21/18 13:[address] Hernandez who is leading up to hospitalist today he told me that virgilio singer Dr. Onime which I did. He has accepted the admission of the patient and he will see him in a while. He agrees with the antibiotic choices. - Vital Signs Vital signs: Temp Pulse Resp BP Pulse Ox 97.5 F 74 16 142/57 H 96 05/21/18 11:03 05/21/18 11:03 05/21/18 11:03 05/21/18 11:03 05/21/18 11:03 - Laboratory Result Diagrams: 05/21/18 12:00 05/21/18 12:00 Laboratory results interpreted by me: 05/21/18 12:00 Hgb 10.2 L Hct 32.4 L MCV 71 L MCH 22.2 L MCHC 31.4 L RDW 20.0 H Discharge - Discharge Clinical Impression: Osteomyelitis of toe of right foot Disposition: ADMITTED INPATIENT Admitting Provider: Hospitalist Unit Admitted: Medical Floor Referrals: JIM AGUILAR MD [Primary Care Provider] - Follow up as needed
[2018-05-21 14:07] LABS: ALANINE AMINOTRANSFERASE 244 U/L (21-72); ALBUMIN 3.5 g/dL (3.5-5.0); ALKALINE PHOSPHATASE 428 U/L (38-126); ANION GAP 11 (5-19); ASPARTATE AMINO TRANSFERASE 152 U/L (17-59); BILIRUBIN,DIRECT 0.3 mg/dL (0.0-0.4); BILIRUBIN,TOTAL 0.3 mg/dL (0.2-1.3); BLOOD UREA NITROGEN 30 mg/dL (7-20); CALCIUM 9.9 mg/dL (8.4-10.2); CARBON DIOXIDE 26 mmol/L (22-30); CHLORIDE 101 mmol/L (98-107); GLUCOSE 204 mg/dL (75-110); POTASSIUM 5.6 mmol/L (3.6-5.0); SODIUM 138.2 mmol/L (137-145); TOTAL PROTEIN 6.7 g/dL (6.3-8.2)
[2018-05-21] MEDS ORDERED: VANCOMYCIN HCL 0 MG in DEXTROSE 5%-WATER 250 ML IV NR (16:00)
--- NOTE | 2018-05-21 17:10 | RADIOLOGY REPORT (SQ) ---
EXAM DESCRIPTION: CT RT LOWER EXTREMITY WITH COMPLETED DATE/TIME: 05/21/2018 4:32 pm REASON FOR STUDY: XR: suspected osteomyelitis rt big toe COMPARISON: None. TECHNIQUE: Postcontrast axial imaging performed through the right great toe with reformatted coronal and sagittal imaging windowed for bone and soft tissues. Images saved to PACS. 3D IMAGING: Were 3D images as MIP, SSD, or volume rendering performed at the work station? No All CT scanners at this facility use dose modulation, iterative reconstruction, and/or weight based d osing when appropriate to reduce radiation dose to as low as reasonably achievable (ALARA). [facility]: Dose Right [facility]: CareDose [facility]: Dose Right [facility]: Teradose 4D [facility]: EndoChoice CONTRAST TYPE AND DOSE: contrast/concentration: Isovue 350.00 mg/ml; Total Contrast Delivered: 65.0 ml; Total Saline Delivered: 42.0 ml RENAL FUNCTION: BUN 30 creatinine 0.36 LIMITATIONS: None. RADIATION DOSE: CT Rad equipment meets quality standard of care and radiation dose reduction techniq ues were employed. CTDIvol: 4.1 mGy. DLP: 90 mGy-cm.mGy. FINDINGS: SOFT TISSUES: No obvious swelling or foreign body. BONES: No acute fracture. No dislocation. No bone destruction. MINERALIZATION: Normal. ENHANCEMENT: No abnormal enhancement. OTHER: No other significant finding. IMPRESSION: No evidence of osteomyelitis. TECHNICAL DOCUMENTATION: JOB ID: [id number] Quality ID # [id number]: Final reports with documentation of one or more dose reduction techniques (e.g., Au tomated exposure control, adjustment of the mA and/or kV according to patient size, use of iterative reconstruction technique) 2010 [employer]- All Rights Reserved Reading location - IP/workstation name: [email or web address]
[2018-05-21] MEDS ORDERED: ENOXAPARIN SODIUM INJ 40 MG/0.4 ML DISP.SYRIN SUBCUT ONE (18:00)
[2018-05-21] MEDS: PIPERACILLIN SODIUM/TAZOBACTAM 3.375 GM in NORMAL SALINE 100 ML IV SCH ×2 (18:36→23:30)
[2018-05-21] MEDS ORDERED: NITROGLYCERIN 0.4 MG/TAB 25 TAB/BOTTLE SL PRN (20:32)
--- NOTE | 2018-05-21 22:31 | PDOC H&P ---
History of Present Illness Admission Date/PCP: 05/21/18 14:05 JIM AGUILAR MD Patient complains of: Right foot pain History of Present Illness: JUAN HOLLY JR is a 72 year old male history of diabetes mellitus, CAD, peripheral vascular disease, who stepped on a screw about 3 weeks ago. He saw his diabetes doctor and was treated with Keflex and the Bactrim. He also received a dose of Rocephin at one-point in the office. He felt the foot was still red and he went to his diabetes doctor who wanted him to get an x-ray and see a vehicle dismantler. Unfortunately the vehicle dismantler is not available for another 2 weeks so he came to the ED. Evaluation at the ED significant for x-ray showing subtle erosion and periosteal reaction about the plantar aspect of the distal phalanx of the right great toe suspicious for osteomyelitis. Patient was treated with a dose of Vanco and Zosyn referred for admission for further evaluation and treatment. Past Medical History Cardiac Medical History: Reports: Congestive Heart Failure, Myocardial Infarction - X6, Hypertension Pulmonary Medical History: Denies: Asthma Neurological Medical History: Denies: Seizures Endocrine Medical History: Reports: Diabetes Mellitus Type 2 - IDDM GI Medical History: Reports: Diverticulitis Denies: Hepatitis, Hiatal Hernia Hematology: Denies: Anemia, Sickle Cell Disease Past Surgical History Past Surgical History: Reports: Cardiac Catheterization, Cholecystectomy, C oronary Artery Bypass Graft, Coronary Stent - x 10, Pacemaker Social History Lives with: Family, Spouse/Significant other Smoking Status: Former Smoker Frequency of Alcohol Use: Rare Hx Recreational Drug Use: No Hx Prescription Drug Abuse: No - Advance Directive Resuscitation Status: Full Code Family History Family History: Reviewed & Not Pertinent, Other Family History: Prostate cancer and CAD in the father, lung cancer in the mother and throat canc er in the brother. Parental Family History Reviewed: Yes Children Family History Reviewed: Yes Sibling(s) Family History Reviewed.: Yes Medication/Allergy Home Medications: Gabapentin [Neurontin 300 mg Capsule] 300 mg PO QHS 07/04/12 Glimepiride [Amaryl 4 mg Tablet] 8 mg PO DAILY 07/04/12 Insulin Aspart [Novolog Insulin (Aspart) 100 unit/mL] 0 unit SUBCUT PRN PRN 07/04/12 Ramipril [Altace 10 mg Capsule] 10 mg PO QHS 07/04/12 Tamsulosin HCl [Flomax 0.4 mg Cap.sr] 0.4 mg PO DAILY 07/04/12 Amlodipine Besylate 5 mg PO DAILY 07/23/15 Aspirin [Ecotrin 81 mg EC Tablet] 81 mg PO QHS 07/23/15 Atorvastatin Calcium [Lipitor 40 mg Tablet] 80 mg PO DAILY 07/23/15 Furosemide [Lasix 40 mg Tablet] 40 mg PO DAILY #30 tablet 07/25/15 Carvedilol [Coreg 12.5 mg Tablet] 12.5 mg PO QHS 03/14/18 Cyanocobalamin (Vitamin B-12) [Vitamin B-12] 1,000 mcg PO DAILY 03/14/18 Diabetic Drug Study 1 tab PO DAILY 03/14/18 Folic Acid/B Cmplx C/Rice Bran [Vitamin B-Complex & C Caplet] 1 each PO DAILY 03/14/18 Insulin Degludec [Tresiba Flextouch U-100] 50 unit SQ QAM 04/19/18 Carvedilol [Coreg 12.5 mg Tablet] 6.25 mg PO QAM 05/21/18 Metformin HCl [Metformin HCl ER] 1,000 mg PO BID 05/21/18 Multivitamin [Tab-A-Johann (Multiple Vitamin) Tablet] 1 tab PO DAILY 05/21/18 Nitroglycerin [Nitrostat 0.4 mg (1/150 Gr) Tabs 25/Bottle] 1 tab SL Q5MP PRN 05/21/18 Zolpidem Tartrate [Ambien 5 mg Tablet] 5 mg PO QHS 05/21/18 Allergies/Adverse Reactions: aspirin [Aspirin] Allergy (Verified 05/21/18 11:01) cephalexin [From Keflex] Allergy (Verified 05/21/18 11:01) Hives iodine [Iodine] Allergy (Verified 05/21/18 11:01) Hives latex Allergy (Verified 05/21/18 11:01) Hives oxycodone HCl [From Percocet] Adverse Reaction (Verified 05/21/18 11:01) Hives IV contrast Allergy (Uncoded 05/21/18 11:01) Hives Review of Systems Review of Systems: CONSTITUTIONAL : Fever, chills -- No; unexpalined fatigue -- No EENT: Denies eye, ear, throat, or mouth pain or symptoms. Denies nasal or sinus congestion or discharge. Denies throat, tongue, or mouth swelling or difficulty swallowing. CARDIOVASCULAR: Denies chest pain. No racing heart RESPIRATORY: Denies cough, no shortness of breath, difficulty breathing. GASTROINTESTINAL: Denies abdominal pain or distention. Denies nausea, vomiting, or diarrhea. No rectal bleeding. GENITOURINARY: Urinary symptoms -- no. MUSCULOSKELETAL: No acute weakness SKIN: As in HPI, otherwise denies rash, lesions or sores. HEMATOLOGIC : Denies easy bruising or bleeding. LYMPHATIC: Denies swollen, enlarged glands. NEUROLOGICAL: New weakness, headaches, slured speach - No PSYCHIATRIC: Changes anxiety or stress, depression, suicidal ideation, or homicidal ideation -- No ALL OTHER SYSTEMS REVIEWED AND NEGATIVE. Physical Exam Vital Signs: Temp Pulse Resp BP Pulse Ox 97.5 F 74 16 142/57 H 96 05/21/18 11:03 05/21/18 11:03 05/21/18 11:03 05/21/18 11:03 05/21/18 11:03 Intake & Output 05/20/18 05/21/18 05/22/18 06:59 06:59 06:59 Weight 79.8 kg GENERAL: Well-developed, well-nourished, no acute distress HEENT: Normocephalic/atraumatic NECK supple, no JVD CARDIOVASCULAR: RRR, normal S1-S2 LUNGS: CTA bilaterally ABDOMEN: Soft, NT, NL bowel sounds EXTREMITIES: No edema, clubbing, cyanosis, mild erytherma right great toe, Area of puncture wound distal aspect of the plantar aspect of right great toe, minimal pus from wound NEUROLOGICAL: Alert, oriented x 3, strength 5/5 bilateral upper and lower extremities, Cranial nerves II through XII grossly intact. Results Laboratory Results: 05/21/18 12:00 05/21/18 12:00 05/21/18 05/21/18 05/21/18 12:00 12:00 14:26 WBC 6.6 RBC 4.58 Hgb 10.2 L Hct 32.4 L MCV 71 L MCH 22.2 L MCHC 31.4 L RDW 20.0 H Plt Count 204 Seg Neutrophils % 67.0 Lymphocytes % 17.4 Monocytes % 10.4 Eosinophils % 3.8 Basophils % 1.4 Absolute Neutrophils 4.4 Absolute Lymphocytes 1.2 Absolute Monocytes 0.7 Absolute Eosinophils 0.2 Absolute Basophils 0.1 Sodium 138.2 Potassium 5.6 H Chloride 101 Carbon Dioxide 26 Anion Gap 11 BUN 30 H Creatinine 1.36 H Est GFR ( Amer) > 60 Est GFR (Non-Af Amer) 52 L Glucose 204 H Lactic Acid 1.0 Calcium 9.9 Total Bilirubin 0.3 AST 152 H ALT 244 H Alkaline Phosphatase 428 H Total Protein 6.7 Albumin 3.5 Impressions: Toe X-Ray 05/21/18 11:46 IMPRESSION: There is subtle erosion and periosteal reaction about the plantar a spect of the distal phalanx of the right great toe suspicious for osteomyelitis. Consider MRI or follow-up radiographs in 7 to 10 days to further evaluate. Assessment & Plan - Diagnosis (1) Diabetic foot infection Is this a current diagnosis for this admission?: Yes (2) CAD (coronary artery disease), [place] coronary artery Is this a current diagnosis for this admission?: Yes (3) Diabetes mellitus type 2 in nonobese Is this a current diagnosis for this admission?: Yes (4) Peripheral vascular disease Is this a current diagnosis for this admission?: Yes - Plan Summary Plan Summary: Patient currently hemodynamically stable, he is not febrile, normal white blood cells. Will admit to 24 hours observation and continue IV antibiotics with Van co and Zosyn for now. Patient has history of pacemaker/defibrillator, so will not obtain an MRI of his foot. Instead, will obtain CT with contrast of the great toe to further evaluate for osteomyelitis. Follow blood cultures result. Consider consulting [facility] for advisement for optimal treatment of this patient especially if CT is positive for osteo. Of note is that patient would like to save his foot.
[2018-05-21] MEDS: CARVEDILOL 12.5 MG TABLET PO SCH (23:23)
[2018-05-21] MEDS: ATORVASTATIN CALCIUM 80 MG TABLET PO SCH (23:23)
[2018-05-21] MEDS: RAMIPRIL 10 MG CAPSULE PO SCH (23:24)
[2018-05-21] MEDS: ZOLPIDEM TARTRATE 5 MG TABLET PO SCH (23:24)
[2018-05-21] MEDS: ASPIRIN 81 MG TABLET, ENT COATED PO SCH (23:24)
[2018-05-21] MEDS: GABAPENTIN 300 MG CAPSULE PO SCH (23:24)
[2018-05-21] MEDS: METFORMIN HCL 500 MG TABLET PO SCH (23:30)
[2018-05-22 05:55] LABS: HEMATOCRIT 29.7 % (37.9-51.0); HEMOGLOBIN 9.5 g/dL (13.5-17.0); MEAN CORPUSCULAR HEMOGLOBIN 22.4 pg (27.0-33.4); MEAN CORPUSCULAR HGB CONC 31.9 g/dL (32.0-36.0); MEAN CORPUSCULAR VOLUME 70 fl (80-97); PLATELET COUNT 187 10^3/uL (150-450); RED BLOOD COUNT 4.24 10^6/uL (4.35-5.55); RED CELL DISTRIBUTION WIDTH 19.6 % (11.5-14.0); WHITE BLOOD COUNT 5.7 10^3/uL (4.0-10.5)
[2018-05-22] MEDS ORDERED: VANCOMYCIN HCL 750 MG in DEXTROSE 5%-WATER 250 ML IV SCH (06:00)
[2018-05-22] MEDS: METFORMIN HCL 500 MG TABLET PO SCH ×2 (06:06→12:29)
[2018-05-22 06:17] LABS: ANION GAP 11 (5-19); BLOOD UREA NITROGEN 29 mg/dL (7-20); CALCIUM 9.1 mg/dL (8.4-10.2); CARBON DIOXIDE 26 mmol/L (22-30); CHLORIDE 102 mmol/L (98-107); GLUCOSE 178 mg/dL (75-110); POTASSIUM 4.7 mmol/L (3.6-5.0); SODIUM 138.7 mmol/L (137-145)
[2018-05-22] MEDS ORDERED: CARVEDILOL 12.5 MG TABLET PO SCH (08:00)
[2018-05-22] MEDS ORDERED: (PENDING PHARMACY ID) (Insulin Degludec [Tresiba Flextouch U-100] 50 UNIT) SQ SCH (08:00)
[2018-05-22] MEDS ORDERED: PIPERACILLIN SODIUM/TAZOBACTAM 3.375 GM in NORMAL SALINE 100 ML IV SCH (09:00)
[2018-05-22] MEDS: MULTIVITAMIN TABLET PO SCH (09:28)
[2018-05-22] MEDS: FUROSEMIDE 40 MG TABLET PO SCH (09:28)
[2018-05-22] MEDS: AMLODIPINE BESYLATE 5 MG TABLET PO SCH (09:28)
[2018-05-22] MEDS: CARVEDILOL 6.25 MG TABLET PO SCH (09:31)
[2018-05-22] MEDS: CYANOCOBALAMIN (VITAMIN B-12) 1,000 MCG TABLET PO SCH (09:31)
[2018-05-22] MEDS: ENOXAPARIN SODIUM INJ 40 MG/0.4 ML DISP.SYRIN SUBCUT SCH (09:32)
[2018-05-22] MEDS ORDERED: ATORVASTATIN CALCIUM 40 MG TABLET PO SCH (10:00)
[2018-05-22] MEDS ORDERED: (PENDING PHARMACY ID) (Metformin Hcl [Metformin Hcl Er] 1,000 MG) PO SCH (10:00)
[2018-05-22] MEDS ORDERED: [UNRECOGNIZED DRUG - MIXTURE] PO SCH (10:00)
[2018-05-22] MEDS ORDERED: TAMSULOSIN HCL 0.4 MG CAP.SR.24H PO SCH ×2 (10:00→18:00)
[2018-05-22] MEDS ORDERED: GLIMEPIRIDE 4 MG TABLET PO SCH ×2 (10:00→18:00)
[2018-05-22] MEDS ORDERED: GLUCAGON,HUMAN RECOMB 1 MG INJ IM PRN (16:56)
[2018-05-22] MEDS ORDERED: INSULIN LISPRO 100 UNIT/ML 3 ML VIAL SUBCUT PRN (16:56)
[2018-05-22] MEDS ORDERED: DEXTROSE 50%-WATER 25 GM/50 ML DISP.SYRIN IV PRN ×2 (16:56)
[2018-05-22] MEDS ORDERED: DEXTROSE 40% GEL 15 GM TUBE PO PRN ×2 (16:56)
--- NOTE | 2018-05-22 17:13 | PDOC PROGRESS REPORT ---
Subjective Progress Note for:: 05/22/18 Subjective:: The patient is a 72-year-old male with past medical history of diabetes mellitus, CAD, PVD, CHF, [place], hypertension who was admitted 05/21/2018 for right great toe cellulitis suspicious for osteomyelitis. Patient was seen on morning rounds with his and family members present. He was found resting comfortably on room air. He reports that the erythema to his right toe is improved today. He is pleased to hear that the CT of his lower extremity was negative for osteomyelitis and is hopeful to be discharged to home shortly on p.o. antibiotics. He denies fever, chills, body aches, chest pain, palpitations, dyspnea, orthopnea, abdominal pain, nausea vomiting or diarrhea. He has no new questions or concerns. No concerns per nursing. Reason For Visit: SUSPECTED OSTEOMYELITIS RT BIG TOE Physical Exam Vital Signs: Temp Pulse Resp BP Pulse Ox 98.0 F 70 20 133/49 H 94 05/22/18 12:55 05/22/18 12:55 05/22/18 12:55 05/22/18 12:55 05/22/18 12:55 Intake & Output 05/21/18 05/22/18 05/23/18 06:59 06:59 06:59 Intake Total 200 250 Balance 200 250 Weight 79.2 kg General appearance: PRESENT: no acute distress, cooperative - Very pleasant, well-developed, well-nourished Head exam: PRESENT: atraumatic, normocephalic Eye exam: PRESENT: conjunctiva pink, EOMI, PERRLA. ABSENT: scleral icterus Ear exam: PRESENT: normal external ear exam Mouth exam: PRESENT: moist, tongue midline Neck exam: ABSENT: carotid bruit, JVD, lymphadenopathy, thyromegaly Respiratory exam: PRESENT: clear to auscultation justyna, symmetrical, unlabored. ABSENT: rales, rhonchi, wheezes Cardiovascular exam: PRESENT: RRR, +S1, +S2. ABSENT: diastolic murmur, rubs, systolic murmur Pulses: PRESENT: normal dorsalis pedis pul Vascular exam: PRESENT: normal capillary refill GI/Abdominal exam: PRESENT: normal bowel sounds, soft. ABSENT: distended, guarding, mass, organolmegaly, rebound, tenderness Rectal exam: PRESENT: deferred Extremities exam: PRESENT: full ROM. ABSENT: calf tenderness, clubbing, pedal edema Neurological exam: PRESENT: alert, awake, oriented to person, oriented to place, oriented to time, oriented to situation, CN II-XII grossly intact. ABSENT: motor sensory deficit Psychiatric exam: PRESENT: appropriate affect, normal mood. ABSENT: homicidal ideation, suicidal ideation Skin exam: PRESENT: dry, warm, other - Right great toe with mild edema as compared to left. Evidence of healing cellulitis (peeling dry skin). Small puncture wound to the plantar surface; no drainage present. Erythema has resolved. Nontender.. ABSENT: cyanosis, rash Results Laboratory Results: 05/22/18 04:42 05/22/18 04:42 05/22/18 05/22/18 04:42 04:42 WBC 5.7 RBC 4.24 L Hgb 9.5 L Hct 29.7 L MCV 70 L MCH 22.4 L MCHC 31.9 L RDW 19.6 H Plt Count 187 Sodium 138.7 Potassium 4.7 Chloride 102 Carbon Dioxide 26 Anion Gap 11 BUN 29 H Creatinine 1.38 H Est GFR ( Amer) > 60 Est GFR (Non-Af Amer) 51 L Glucose 178 H Calcium 9.1 Impressions: Lower Extremity CT 05/21/18 00:00 IMPRESSION: No evidence of osteomyelitis. Toe X-Ray 05/21/18 11:46 IMPRESSION: There is subtle erosion and periosteal reaction about the plantar aspect of the distal phalanx of the right great toe suspicious for osteomyelitis. Consider MRI or follow-up radiographs in 7 to 10 days to further evaluate. Assessment & Plan - Diagnosis (1) Diabetic foot infection Is this a current diagnosis for this admission?: Yes Plan: The patient was initially placed on p.o. Keflex times 3 days; toe appeared to be worsening, so he was provided IM Rocephin as an outpatient and transition to p.o. Bactrim. He has been on Bactrim DS twice daily for approximately 2 weeks now. On admission, the patient was placed on IV vancomycin and Zosyn. Cultures are negative at 24 hours. WBCs are normal. Lower extremity CT was negative for obvious swelling or foreign body, negative for evidence of osteomyelitis. Although the patient has already been on a 2-week course of Bactrim; he reports erythema resolved after 1 day of IV antibiotics. As he does not have osteomyelitis; feel that it is safe to transition him back on to p.o. antibiotics. Will resume Bactrim and initiate Augmentin. Recommend he follow-up with his key cutter as scheduled in 2 weeks. Continue meticulous foot care, keep externally elevated. Anticipate discharge to home tomorrow if foot continues to look improved. (2) SHANNON (acute kidney injury) Is this a current diagnosis for this admission?: Yes Plan: Secondary to multiple nephrotoxic medications: Metformin, Lasix, vancomycin/Zosyn, CT contrast. Baseline creatinine of 0.90; increased to 1.38 today. Avoid nephrotoxic medications as able. Metformin and Lasix are held. Vancomycin/Zosyn discontinued; see antibiotics as above. Encourage p.o. fluids. Gentle IV maintenance fluids. Daily chemistry. (3) Diabetes mellitus type 2 in nonobese Is this a current diagnosis for this admission?: Yes Plan: Holding metformin while inpatient secondary to recent administration of IV contrast and [place] I. Patient's Tresiba is non-formulary He is placed on a consistent carb diet. Accu-Cheks before meals and at bedtime with Humalog for sliding scale coverage. Continue his home dose of glimepiride. (4) Peripheral vascular disease Is this a current diagnosis for this admission?: Yes (5) CAD (coronary artery disease), [place] coronary artery Is this a current diagnosis for this admission?: Yes Plan: Continue daily aspirin, home dose atorvastatin, amlodipine, carvedilol, and Altace. - Time Time Spent with patient: 35 or more minutes Medications reviewed and adjusted accordingly: Yes Anticipated discharge: Home Within: within 24 hours
[2018-05-22] MEDS ORDERED: SULFAMETHOXAZOLE/TRIMETHOPRIM 800-160 MG TABLET PO ONE (19:45)
[2018-05-22] MEDS: CARVEDILOL 12.5 MG TABLET PO SCH (21:30)
[2018-05-22] MEDS: ASPIRIN 81 MG TABLET, ENT COATED PO SCH (21:30)
[2018-05-22] MEDS: GABAPENTIN 300 MG CAPSULE PO SCH (21:31)
[2018-05-22] MEDS: AMOXICILLIN TR/POT CLAVULANATE 500-125 MG TAB PO SCH (21:31)
[2018-05-22] MEDS: ATORVASTATIN CALCIUM 80 MG TABLET PO SCH (21:31)
[2018-05-22] MEDS: ZOLPIDEM TARTRATE 5 MG TABLET PO SCH (21:32)
[2018-05-22] MEDS ORDERED: SULFAMETHOXAZOLE/TRIMETHOPRIM 800-160 MG TABLET ONE (21:43)
[2018-05-22] MEDS: RAMIPRIL 10 MG CAPSULE PO SCH (22:21)
[2018-05-22] MEDS: NORMAL SALINE 1000 ML 1,000 ML IV PRN (22:34)
[2018-05-23] MEDS: AMOXICILLIN TR/POT CLAVULANATE 500-125 MG TAB PO SCH ×2 (05:58→13:29)
[2018-05-23] MEDS: NORMAL SALINE 1000 ML 1,000 ML IV PRN (05:58)
[2018-05-23 07:54] LABS: HEMATOCRIT 30.7 % (37.9-51.0); HEMOGLOBIN 9.5 g/dL (13.5-17.0); MEAN CORPUSCULAR HGB CONC 31.1 g/dL (32.0-36.0); MEAN CORPUSCULAR VOLUME 71 fl (80-97); PLATELET COUNT 185 10^3/uL (150-450); RED BLOOD COUNT 4.34 10^6/uL (4.35-5.55); RED CELL DISTRIBUTION WIDTH 20.1 % (11.5-14.0); WHITE BLOOD COUNT 5.2 10^3/uL (4.0-10.5)
[2018-05-23 08:21] LABS: ANION GAP 7 (5-19); BLOOD UREA NITROGEN 24 mg/dL (7-20); CALCIUM 8.8 mg/dL (8.4-10.2); CARBON DIOXIDE 26 mmol/L (22-30); CHLORIDE 108 mmol/L (98-107); GLUCOSE 114 mg/dL (75-110); POTASSIUM 5.2 mmol/L (3.6-5.0); SODIUM 140.8 mmol/L (137-145)
[2018-05-23] MEDS: ENOXAPARIN SODIUM INJ 40 MG/0.4 ML DISP.SYRIN SUBCUT SCH (09:09)
[2018-05-23] MEDS: CARVEDILOL 6.25 MG TABLET PO SCH (09:09)
[2018-05-23] MEDS: CYANOCOBALAMIN (VITAMIN B-12) 1,000 MCG TABLET PO SCH (09:10)
[2018-05-23] MEDS: MULTIVITAMIN TABLET PO SCH (09:10)
[2018-05-23] MEDS: AMLODIPINE BESYLATE 5 MG TABLET PO SCH (09:10)
[2018-05-23] MEDS ORDERED: SULFAMETHOXAZOLE/TRIMETHOPRIM 800-160 MG TABLET PO SCH (10:00)
[2018-05-23] MEDS: FUROSEMIDE 40 MG TABLET PO SCH (13:29)
[2018-05-23 14:15] VITALS: BP 123/47
--- NOTE | 2018-05-23 18:37 | PDOC DISCHARGE SUMMARY ---
General - Admit/Disc Date/PCP Admission Date/Primary Care Provider: 05/21/18 14:05 JIM AGUILAR MD Discharge Date: 05/23/18 - Discharge Diagnosis (1) Diabetic foot infection Is this a current diagnosis for this admission?: Yes (2) SHANNON (acute kidney injury) Is this a current diagnosis for this admission?: Yes (3) Diabetes mellitus type 2 in nonobese Is this a current diagnosis for this admission?: Yes (4) Peripheral vascular disease Is this a current diagnosis for this admission?: Yes (5) CAD (coronary artery disease), [place] coronary artery Is this a current diagnosis for this admission?: Yes - Additional Information Resuscitation Status: Full Code Discharge Diet: Diabetic Discharge Activity: Activity As Tolerated, Balance Activity w/Rest Prescriptions: Amox Tr/Potassium Clavulanate [Augmentin "500" Tablet] 1 tab PO Q8 #30 tablet Home Medications: Gabapentin [Neurontin 300 mg Capsule] 300 mg PO QHS 07/04/12 Glimepiride [Amaryl 4 mg Tablet] 8 mg PO DAILY 07/04/12 Insulin Aspart [Novolog Insulin (Aspart) 100 unit/mL] 0 unit SUBCUT PRN PRN 07/04/12 Ramipril [Altace 10 mg Capsule] 10 mg PO QHS 07/04/12 Tamsulosin HCl [Flomax 0.4 mg Cap.sr] 0.4 mg PO DAILY 07/04/12 Amlodipine Besylate 5 mg PO DAILY 07/23/15 Aspirin [Ecotrin 81 mg EC Tablet] 81 mg PO QHS 07/23/15 Atorvastatin Calcium [Lipitor 40 mg Tablet] 80 mg PO DAILY 07/23/15 Furosemide [Lasix 40 mg Tablet] 40 mg PO DAILY #30 tablet 07/25/15 Carvedilol [Coreg 12.5 mg Tablet] 12.5 mg PO QHS 03/14/18 Cyanocobalamin (Vitamin B-12) [Vitamin B-12] 1,000 mcg PO DAILY 03/14/18 Diabetic Drug Study 1 tab PO DAILY 03/14/18 Folic Acid/B Cmplx C/Rice Bran [Vitamin B-Complex & C Caplet] 1 each PO DAILY 03/14/18 Insulin Degludec [Tresiba Flextouch U-100] 50 unit SQ QAM 04/19/18 Carvedilol [Coreg 12.5 mg Tablet] 6.25 mg PO QAM 05/21/18 Metformin HCl [Metformin HCl ER] 1,000 mg PO BID 05/21/18 Multivitamin [Tab-A-Johann (Multiple Vitamin) Tablet] 1 tab PO DAILY 05/21/18 Nitroglycerin [Nitrostat 0.4 mg (1/150 Gr) Tabs 25/Bottle] 1 tab SL Q5MP PRN 05/21/18 Zolpidem Tartrate [Ambien 5 mg Tablet] 5 mg PO QHS 05/21/18 Amox Tr/Potassium Clavulanate [Augmentin "500" Tablet] 1 tab PO Q8 #30 tablet 05/23/18 History of Present Illness History of Present Illness: Per H&P by Dr. Mcclelland: JUAN HOLLY JR is a 72 year old male history of diabetes mellitus, CAD, peripheral vascular disease, who stepped on a screw about 3 weeks ago. He saw his diabetes doctor and was treated with Keflex and the Bactrim. He also received a dose of Rocephin at one-point in the office. He felt the foot was still red and he went to his diabetes doctor who wanted him to get an x-ray and see a mental health director. Unfortunately the mental health director is not available for another 2 weeks so he came to the ED. Evaluation at the ED significant for x-ray showing subtle erosion and periosteal reaction about the plantar aspect of the distal phalanx of the right great toe suspicious for osteomyelitis. Patient was treated with a dose of Vanco and Zosyn referred for admission for further evaluation and treatment. Hospital Course Hospital Course: The patient was admitted to the medical floor and empirically placed on IV vancomycin and Zosyn. Of note, the patient has been on p.o. Bactrim for a couple of weeks now as an outpatient. He reports improvement in the appearance of his toe since beginning Bactrim, however, had not resolved entirely and as he was unable to follow-up with a podiatris, he presented to the emergency department. Toe x-ray showed subtle erosion and periosteal reaction to the plantar aspect of the distal phalanx of the right great toe suspicious for osteomyelitis. As the patient was not a candidate for MRI (pacemaker) lower extremity CT was obtained; fortunately this was negative for any evidence of osteomyelitis. As the patient remained afebrile with a normal WBC and negative blood cultures, IV antibiotics were discontinued and he was transitioned to p.o. antibiotics for completion of course of therapy. At time of discharge, the patient is in stable condition with improved clinical appearance of his toe. He is provided a prescription for Augmentin x10 days and instructed to resume his previously prescribed Bactrim. He is advised to follow-up with his primary care provider within 1 week, podiatry as scheduled next week, and powder loader as scheduled. He is instructed on warning signs for worsening cellulitis that should prompt him to seek immediate medical evaluation; return to the emergency department as needed. Physical Exam Vital Signs: Temp Pulse Resp BP Pulse Ox 97.5 F 75 17 123/47 L 97 05/23/18 14:14 05/23/18 14:14 05/23/18 14:14 05/23/18 14:14 05/23/18 14:14 Intake & Output 05/22/18 05/23/18 05/24/18 06:59 06:59 06:59 Intake Total 200 2752 1000 Balance 200 2752 1000 Weight 79.2 kg 80.2 kg General appearance: PRESENT: no acute distress, cooperative, well-developed, well-nourished Head exam: PRESENT: atraumatic, normocephalic Eye exam: PRESENT: conjunctiva pink, EOMI, PERRLA. ABSENT: scleral icterus Ear exam: PRESENT: normal external ear exam Mouth exam: PRESENT: moist, tongue midline Neck exam: ABSENT: carotid bruit, JVD, lymphadenopathy, thyromegaly Respiratory exam: PRESENT: clear to auscultation justyna, symmetrical, unlabored. ABSENT: rales, rhonchi, wheezes Cardiovascular exam: PRESENT: RRR, +S1, +S2. ABSENT: diastolic murmur, rubs, systolic murmur Pulses: PRESENT: normal dorsalis pedis pul Vascular exam: PRESENT: normal capillary refill GI/Abdominal exam: PRESENT: normal bowel sounds, soft. ABSENT: distended, guarding, mass, organolmegaly, rebound, tenderness Rectal exam: PRESENT: deferred Extremities exam: PRESENT: full ROM. ABSENT: calf tenderness, clubbing, pedal edema Neurological exam: PRESENT: alert, awake, oriented to person, oriented to place, oriented to time, oriented to situation, CN II-XII grossly intact. ABSENT: motor sensory deficit Psychiatric exam: PRESENT: appropriate affect, normal mood. ABSENT: homicidal ideation, suicidal ideation Skin exam: PRESENT: dry, intact, warm, other - Right great toe with mild edema as compared to left. Evidence of healing cellulitis (peeling dry skin). Small puncture wound to the plantar surface; no drainage present. Erythema has resolved. Nontender. ABSENT: cyanosis, rash Results Laboratory Results: 05/23/18 07:02 05/23/18 07:02 05/23/18 05/23/18 07:02 07:02 WBC 5.2 RBC 4.34 L Hgb 9.5 L Hct 30.7 L MCV 71 L MCH 22.0 L MCHC 31.1 L RDW 20.1 H Plt Count 185 Sodium 140.8 Potassium 5.2 H Chloride 108 H Carbon Dioxide 26 Anion Gap 7 BUN 24 H Creatinine 0.90 Est GFR ( Amer) > 60 Est GFR (Non-Af Amer) > 60 Glucose 114 H Calcium 8.8 Impressions: Lower Extremity CT 05/21/18 00:00 IMPRESSION: No evidence of osteomyelitis. Toe X-Ray 05/21/18 11:46 IMPRESSION: There is subtle erosion and periosteal reaction about the plantar aspect of the distal phalanx of the right great toe suspicious for osteomyelitis. Consider MRI or follow-up radiographs in 7 to 10 days to further evaluate. Qualifiers - * PATIENT BEING DISCHARGED WITH ANY OF THE FOLLOWING DIAGNOSIS: No Plan Discharge Plan: Discharged home with self-care. Follow-up with primary care provider within 1 week. Follow-up with mental health director within 2 weeks. Follow-up with powder loader as scheduled. return to the emergency department as needed for concerning symptoms. Time Spent: Less than 30 Minutes
== END 2018-05-23 14:30 | disposition home or self-care (01) ==
LOC: ER 11:00 → EH 14:05 → INTOOBSV 14:05 → 4N 16:34
PROVIDERS: ADMIT Hospitalist; ATTEND Hospitalist
DX: E11.628 Type 2 diabetes mellitus with other skin complications (principal); L03.031 Cellulitis of right toe; E11.40 Type 2 diabetes mellitus with diabetic neuropathy, unspecified; E11.51 Type 2 diabetes mellitus with diabetic peripheral angiopathy without gangrene; I25.10 Atherosclerotic heart disease of native coronary artery without angina pectoris; N17.9 Acute kidney failure, unspecified; N14.1 Nephropathy induced by other drugs, medicaments and biological substances; T38.3X5A Adverse effect of insulin and oral hypoglycemic [antidiabetic] drugs, initial encounter; T50.1X5A Adverse effect of loop [high-ceiling] diuretics, initial encounter; T36.8X5A Adverse effect of other systemic antibiotics, initial encounter; T36.0X5A Adverse effect of penicillins, initial encounter; I11.0 Hypertensive heart disease with heart failure; I50.9 Heart failure, unspecified; Z79.4 Long term (current) use of insulin; Z95.5 Presence of coronary angioplasty implant and graft; Z95.1 Presence of aortocoronary bypass graft; Z95.0 Presence of cardiac pacemaker; Z79.899 Other long term (current) drug therapy; Z79.82 Long term (current) use of aspirin; Z87.891 Personal history of nicotine dependence
CPT/HCPCS: 99284; 36415 ×3; 87040; 82962 ×3; 85025; 85027 ×2; 80048 ×2; 80053; 83605; 73660; 73701; G0378 ×4; A9270 ×31; J1650 ×3; J3490 ×3; J7060; J7030 ×2; J3370 ×2; J2543; J1815

== ENCOUNTER 2019-02-14 08:19 | Observation (INO) | payer MEDICARE, OTHER ==
--- NOTE | 2019-02-14 09:29 | ER Document Report ---
ED General - General Chief Complaint: Shortness Of Breath Stated Complaint: DIFFICULTY BREATHING Time Seen by Provider: 02/14/19 08:53 Mode of Arrival: Ambulatory Information source: Patient, Relative TRAVEL OUTSIDE OF THE [place] IN LAST 30 DAYS: No - HPI Notes: 73-year-old male with a medical history of CHF, type 2 diabetes, PVD, CAD presents the ED with complaints of shortness of breath, at least 15 pounds in weight gain in the last 5 days. Patient states he did double up on his Lasix to see if this would help with getting some of his weight off, states this did not help him. Patient is anticoagulated on Plavix for having a combination of 17 stents in his legs and his heart over the course of the last 20 years. Patient does follow with Dr. Mena at [facility] heart [facility] vascular and his primary care doctor is at [facility] in [place]. Denies fevers, chills, chest pain,palpitations, nausea, vomiting, diarrhea, abdominal pain, hematuria,blurred vision, double vision, loss of vision, speech changes, LH, dizziness, syncope, headaches, wheezing,URI, neck pain, weakness, bowel or bladder dysfunction, saddle anesthesia, numbness or tingling in bilateral upper or lower extremities equally, muscle paralysis, weakness in bilateral upper or lower extremities equally or rash. - Related Data Allergies/Adverse Reactions: aspirin [Aspirin] Allergy (Verified 02/14/19 08:39) cephalexin [From Keflex] Allergy (Verified 02/14/19 08:39) Hives iodine [Iodine] Allergy (Verified 02/14/19 08:39) Hives latex Allergy (Verified 02/14/19 08:39) Hives oxycodone HCl [From Percocet] Adverse Reaction (Verified 02/14/19 08:39) Hives IV contrast Allergy (Uncoded 02/14/19 08:39) Hives Past Medical History - General Information source: Patient, Relative - Social History Smoking Status: Never Smoker Chew tobacco use (# tins/day): No Frequency of alcohol use: None Drug Abuse: None Family History: Reviewed & Not Pertinent, Other Patient has suicidal ideation: No Patient has homicidal ideation: No - Past Medical History Cardiac Medical History: Reports: Hx Congestive Heart Failure, Hx Heart Attack - X6, Hx Hypertension Pulmonary Medical History: Denies: Hx Asthma Neurological Medical History: Denies: Hx Cerebrovascular Accident, Hx Seizures Endocrine Medical History: Reports: Hx Diabetes Mellitus Type 2 - IDDM Renal/ Medical History: Denies: Hx Peritoneal Dialysis GI Medical History: Reports: Hx Diverticulitis. Denies: Hx Hepatitis, Hx Hiatal Hernia, Hx Ulcer Infectious Medical History: Denies: Hx Hepatitis Past Surgical History: Reports: Hx Cardiac Catheterization, Hx Cardiac Surgery - ICD, 17 stents, triple bypass, Hx Cholecystectomy, Hx Coronary Artery Bypass Graft, Hx Coronary Stent - x 10, Hx Open Heart Surgery, Hx Pacemaker, Hx Vascular Surgery - fem pop tp right leg - Immunizations Hx Diphtheria, Pertussis, Tetanus Vaccination: No Review of Systems - Review of Systems Constitutional: No symptoms reported EENT: No symptoms reported Cardiovascular: No symptoms reported Respiratory: See HPI Gastrointestinal: No symptoms reported Genitourinary: No symptoms reported Male Genitourinary: No symptoms reported Musculoskeletal: No symptoms reported Skin: No symptoms reported Hematologic/Lymphatic: No symptoms reported Neurological/Psychological: No symptoms reported Physical Exam - Vital signs Vitals: Temp Pulse Resp BP Pulse Ox 97.3 F 73 18 130/42 H 95 02/14/19 08:25 02/14/19 08:25 02/14/19 08:25 02/14/19 08:25 02/14/19 08:25 - Notes Notes: PHYSICAL EXAMINATION: GENERAL: Well-appearing, well-nourished and in no acute distress. HEAD: Atraumatic, normocephalic. EYES: Pupils equal round and reactive to light, extraocular movements intact, sclera anicteric, conjunctiva are normal. ENT: Nares patent, oropharynx clear without exudates. Moist mucous membranes. NECK: Normal range of motion, supple without lymphadenopathy LUNGS: Breath sounds clear to auscultation bilaterally and equal. No wheezes rales or rhonchi. HEART: Regular rate and rhythm without murmurs ABDOMEN: Soft, nontender, nondistended abdomen. No guarding, no rebound. No masses appreciated. Musculoskeletal: Normal range of motion, no pitting or edema. No cyanosis. NEUROLOGICAL: Cranial nerves grossly intact. Normal speech, normal gait. Normal sensory, motor exams PSYCH: Normal mood, normal affect. SKIN: Warm, Dry, normal turgor, no rashes or lesions noted. Bilateral pedal edema +2 cap refill less than 3 seconds bilaterally. Muscle strength 5 out of 5 bilateral upper and lower extremities equally. Course - Re-evaluation Re-evalutation: 02/14/19 09:26 Afebrile vital stable no distress. CBC negative for leukocytosis, CMP negative for hepatic or renal dysfunction, no electrolyte disturbances, BNP 1360, percent troponin negative, EKG no ST segment elevations, no STEMI, chest x-ray negative for vascular congestion. Potassium 4.4. Patient does require 2 L nasal cannula to maintain a pulse ox greater than 94%. Patient is now oxygen dependent and does not have oxygen at home. 40 mg of Lasix given IVP. consulted with Dr.Rex Lovett, hospitalist at 1040, will admit patient to stepdown ICU to manage CHF. Patient and are agreeable to this plan of care and agree with plan of care. Patient will be managed on medical service for CHF - Vital Signs Vital signs: Temp Pulse Resp BP Pulse Ox 97.3 F 73 18 130/42 H 95 02/14/19 08:25 02/14/19 08:25 02/14/19 08:25 02/14/19 08:25 02/14/19 08:25 - Laboratory Result Diagrams: 02/14/19 09:20 02/14/19 09:20 Laboratory results interpreted by me: 02/14/19 02/14/19 02/14/19 09:20 09:20 09:20 RBC 4.10 L Hgb 8.8 L Hct 28.5 L MCV 70 L MCH 21.5 L MCHC 30.9 L RDW 19.9 H BUN 26 H Glucose 174 H NT-Pro-B Natriuret Pep 1360 H Total Protein 6.2 L Discharge - Discharge Clinical Impression: Acute CHF Condition: Stable Disposition: ADMITTED INPATIENT Admitting Provider: Kacie (Hospitalist) Unit Admitted: [facility]
[2019-02-14 09:36] LABS: ABSOLUTE BASOPHILS # (AUTO) 0.1 10^3/uL (0.0-0.2); ABSOLUTE EOSINOPHILS # (AUTO) 0.3 10^3/uL (0.0-0.6); ABSOLUTE LYMPHOCYTES (AUTO) 1.1 10^3/uL (0.5-4.7); ABSOLUTE MONOCYTES (AUTO) 0.5 10^3/uL (0.1-1.4); BASOPHILS % (AUTO) 1.9 % (0-2); EOSINOPHILS % (AUTO) 4.3 % (0-6); HEMATOCRIT 28.5 % (37.9-51.0); HEMOGLOBIN 8.8 g/dL (13.5-17.0); LYMPHOCYTES % (AUTO) 18.1 % (13-45); MEAN CORPUSCULAR HEMOGLOBIN 21.5 pg (27.0-33.4); MEAN CORPUSCULAR HGB CONC 30.9 g/dL (32.0-36.0); MEAN CORPUSCULAR VOLUME 70 fl (80-97); MONOCYTES % (AUTO) 8.4 % (3-13); PLATELET COUNT 201 10^3/uL (150-450); RED CELL DISTRIBUTION WIDTH 19.9 % (11.5-14.0); SEGMENTED NEUTROPHILS % (AUTO) 67.3 % (42-78); TOTAL CELLS COUNTED % (AUTO) 100 %
[2019-02-14 09:43] LABS: INTERNATIONAL RATION (INR) 1.11; PROTHROMBIN TIME 14.3 SEC (11.4-15.4)
[2019-02-14 09:44] LABS: PARTIAL THROMBOPLASTIN TIME 27.5 SEC (23.5-35.8)
[2019-02-14 10:01] LABS: ALBUMIN 3.7 g/dL (3.5-5.0); ALKALINE PHOSPHATASE 97 U/L (38-126); ANION GAP 8 (5-19); ASPARTATE AMINO TRANSFERASE 17 U/L (17-59); BILIRUBIN,DIRECT 0.1 mg/dL (0.0-0.4); BILIRUBIN,TOTAL 0.4 mg/dL (0.2-1.3); BLOOD UREA NITROGEN 26 mg/dL (7-20); CALCIUM 8.9 mg/dL (8.4-10.2); CARBON DIOXIDE 28 mmol/L (22-30); CHLORIDE 102 mmol/L (98-107); GLUCOSE 174 mg/dL (75-110); POTASSIUM 4.6 mmol/L (3.6-5.0); TOTAL PROTEIN 6.2 g/dL (6.3-8.2)
[2019-02-14 10:14] LABS: CREATINE KINASE MB 0.88 ng/mL (<4.55); TROPONIN I 0.028 ng/mL
[2019-02-14] MEDS ORDERED: FUROSEMIDE INJ/PF 40 MG/4 ML SDV IV ONE (10:29)
--- NOTE | 2019-02-14 11:08 | RADIOLOGY REPORT (SQ) ---
EXAM DESCRIPTION: CHEST SINGLE VIEW COMPLETED DATE/TIME: 02/14/2019 10:49 am REASON FOR STUDY: sob COMPARISON: Chest films 11/18/2016, 07/23/2015, 08/27/2012 EXAM PARAMETERS: NUMBER OF VIEWS: One view. TECHNIQUE: Single frontal radiographic view of the chest acquired. RADIATION DOSE: NA LIMITATIONS: None. FINDINGS: LUNGS AND PLEURA: Few Kaylynn lines at both lung bases, question mild fluid overload or con gestive failure. No pleural effusion. No pneumothorax. MEDIASTINUM AND HILAR STRUCTURES: No masses. Contour normal. HEART AND VASCULAR STRUCTURES: No cardiomegaly. Old sternotomy for CABG. Faintly radiopaque left co ronary stent BONES: No acute findings. HARDWARE: Left-sided dual lead pacemaker OTHER: No other significant finding. IMPRESSION: Kaylynn lines at both lung bases, worrisome for mild interstitial pulmonary edema TECHNICAL DOCUMENTATION: JOB ID: [id number] [employer]- All Rights Reserved Reading location - IP/workstation name: [email or web address]
[2019-02-14] MEDS ORDERED: DEXTROSE 40% GEL 15 GM TUBE PO PRN ×2 (12:06)
[2019-02-14] MEDS ORDERED: GLUCAGON,HUMAN RECOMB 1 MG INJ IM PRN (12:06)
[2019-02-14] MEDS ORDERED: DEXTROSE 50%-WATER 25 GM/50 ML DISP.SYRIN IV PRN ×2 (12:06)
[2019-02-14] MEDS ORDERED: ZOLPIDEM TARTRATE 5 MG TABLET PO PRN (14:56)
[2019-02-14] MEDS ORDERED: INSULIN ASPART 10 UNIT SUBCUT PRN (14:56)
[2019-02-14] MEDS ORDERED: [UNRECOGNIZED DRUG - OTHER] SUBCUT PRN (14:56)
[2019-02-14] MEDS ORDERED: NITROGLYCERIN 0.4 MG/TAB 25 TAB/BOTTLE SL PRN (14:56)
--- NOTE | 2019-02-14 14:56 | PDOC H&P ---
History of Present Illness Admission Date/PCP: 02/14/19 10:58 JIM AGUILAR MD Patient complains of: SOB History of Present Illness: JUAN HOLLY JR is a 73 year old male with a past medical history of CAD with multiple stenting, prior to his CABG, PVD with bilateral stents and a right-sided femoropopliteal bypass, hypertension, diabetes medius type II, chronic systolic heart failure with an EF of 35 to 40%, grade 2 diastolic dysfunction, and prior AICD placement who presented with progressive shortness of breath. Patient says that he has been having slowly but progressive shortness of breath in the past 5 days. He does report he ate a lot of potato chips last week. He also reported associated weight gain of 15 pounds over the past 5 days. He says that his bipedal edema has also worsened more than his baseline. He denies chest pain or chest tightness. Denies any cough fever or chills. Past Medical History Cardiac Medical History: Reports: Congestive Heart Failure, Myocardial Infarction - X6, Hypertension Pulmonary Medical History: Denies: Asthma Neurological Medical History: Denies: Seizures Endocrine Medical History: Reports: Diabetes Mellitus Type 2 - IDDM GI Medical History: Reports: Diverticulitis Denies: Hepatitis, Hiatal Hernia Hematology: Denies: Anemia, Sickle Cell Disease Past Surgical History Past Surgical History: Reports: Cardiac Catheterization, Cholecystectomy, Coronary Artery Bypass Graft, Coronary Stent - x 10, Pacemaker, Vascular Surgery - fem pop tp right leg Social History Smoking Status: Never Smoker Frequency of Alcohol Use: Rare Hx Recreational Drug Use: No Drugs: Cocaine Hx Prescription Drug Abuse: No Family History Family History: Reviewed & Not Pertinent, Other Parental Family History Reviewed: Yes - No premature CAD Children Family History Reviewed: No Sibling(s) Family History Reviewed.: No Medication/Allergy Home Medications: Amlodipine Besylate [Norvasc 5 mg Tablet] 5 mg PO DAILY 02/14/19 Aspirin [Ecotrin 81 mg EC Tablet] 81 mg PO QHS 02/14/19 Atorvastatin Calcium [Lipitor 80 mg Tablet] 80 mg PO QHS 02/14/19 Carvedilol [Coreg 12.5 mg Tablet] 12.5 mg PO QHS 02/14/19 Carvedilol [Coreg 6.25 mg Tablet] 6.25 mg PO DAILY 02/14/19 Clopidogrel Bisulfate [Plavix 75 mg Tablet] 75 mg PO DAILY 02/14/19 Cyanocobalamin (Vitamin B-12) [Vitamin B-12] 1,000 mcg PO DAILY 02/14/19 Furosemide [Lasix 40 mg Tablet] 40 mg PO DAILY 02/14/19 Gabapentin [Neurontin 300 mg Capsule] 300 mg PO QHS 02/14/19 Glimepiride [Amaryl 4 mg Tablet] 8 mg PO DAILY@1700 02/14/19 Insulin Aspart (Niacinamide) [Fiasp 100 Unit/ml Flextouch] 10 unit SQ DAILYP PRN 02/14/19 Insulin Degludec [Tresiba Flextouch U-100] 50 unit SQ QAM 02/14/19 Metformin HCl [Glucophage XR 500 mg Tablet] 1,000 mg PO BID@1700,2200 02/14/19 Multivitamin [Tab-A-Johann (Multiple Vitamin) Tablet] 1 tab PO DAILY 02/14/19 Nitroglycerin [Nitrostat 0.4 mg (1/150 Gr) Tabs 25/Bottle] 1 tab SL Q5MP PRN 02/14/19 Ramipril [Altace 10 mg Capsule] 1 cap PO QHS 02/14/19 Tamsulosin HCl [Flomax 0.4 mg Cap.sr] 0.4 mg PO DAILY@1700 02/14/19 Zolpidem Tartrate [Ambien 5 mg Tablet] 5 mg PO HSP PRN 02/14/19 Allergies/Adverse Reactions: aspirin [Aspirin] Allergy (Verified 02/14/19 08:39) cephalexin [From Keflex] Allergy (Verified 02/14/19 08:39) Hives iodine [Iodine] Allergy (Verified 02/14/19 08:39) Hives latex Allergy (Verified 02/14/19 08:39) Hives oxycodone HCl [From Percocet] Adverse Reaction (Verified 02/14/19 08:39) Hives IV contrast Allergy (Uncoded 02/14/19 08:39) Hives Review of Systems All systems: reviewed and no additional remarkable complaints except as stated - As mentioned in HPI Physical Exam Vital Signs: Temp Pulse Resp BP Pulse Ox 97.3 F 73 18 130/42 H 95 02/14/19 08:25 02/14/19 08:25 02/14/19 08:25 02/14/19 08:25 02/14/19 08:25 Intake & Output 02/13/19 02/14/19 02/15/19 06:59 06:59 06:59 Weight 190 lb 14.725 oz General appearance: PRESENT: no acute distress, well-developed, well-nourished Head exam: PRESENT: atraumatic, normocephalic Ear exam: PRESENT: normal external ear exam Mouth exam: PRESENT: moist, tongue midline Neck exam: ABSENT: carotid bruit, JVD, lymphadenopathy, thyromegaly Respiratory exam: PRESENT: rales. ABSENT: rhonchi, wheezes Cardiovascular exam: PRESENT: RRR, systolic murmur. ABSENT: diastolic murmur Pulses: PRESENT: normal dorsalis pedis pul GI/Abdominal exam: PRESENT: normal bowel sounds, soft. ABSENT: distended, guarding, mass, organolmegaly, rebound, tenderness Rectal exam: PRESENT: deferred Extremities exam: PRESENT: +2 edema Results Laboratory Results: 02/14/19 09:20 02/14/19 09:20 02/14/19 02/14/19 09:20 09:20 WBC 6.0 RBC 4.10 L Hgb 8.8 L Hct 28.5 L MCV 70 L MCH 21.5 L MCHC 30.9 L RDW 19.9 H Plt Count 201 Seg Neutrophils % 67.3 Sodium 137.7 Potassium 4.6 Chloride 102 Carbon Dioxide 28 Anion Gap 8 BUN 26 H Creatinine 0.85 Est GFR ( Amer) > 60 Glucose 174 H Calcium 8.9 Total Bilirubin 0.4 AST 17 Alkaline Phosphatase 97 Total Protein 6.2 L Albumin 3.7 02/14/19 09:20 CK-MB (CK-2) 0.88 Troponin I 0.028 NT-Pro-B Natriuret Pep 1360 H Impressions: Chest X-Ray 02/14/19 09:01 IMPRESSION: Kaylynn lines at both lung bases, worrisome for mild interstitial pulmonary edema Assessment and Plan - Diagnosis (1) Acute exacerbation of CHF (congestive heart failure) Qualifiers: Heart failure type: combined systolic and diastolic Qualified Code(s): I50.43 - Acute on chronic combined systolic (congestive) and diastolic (congestive) heart failure Is this a current diagnosis for this admission?: Yes Plan: Currently saturating well on 2 L of nasal cannula. We will start patient on IV Lasix 40 mg every 12. Strict AUBREY's. Salt and fluid restriction. (2) CAD (coronary artery disease), [place] coronary artery Is this a current diagnosis for this admission?: Yes Plan: We will resume home meds once stable. (3) Diabetes mellitus type 2 in nonobese Is this a current diagnosis for this admission?: Yes Plan: We will check an A1c. We will add a sliding scale coverage. (4) Peripheral vascular disease Is this a current diagnosis for this admission?: Yes Plan: Resume home meds once verified. - Time Time Spent with patient: 25-34 minutes
--- NOTE | 2019-02-14 14:58 | ADVANCED CARE ---
- Diagnosis (1) Acute exacerbation of CHF (congestive heart failure) Diagnosis Current: Yes (2) CAD (coronary artery disease), [place] coronary artery Diagnosis Current: Yes (3) Diabetes mellitus type 2 in nonobese Diagnosis Current: Yes (4) Peripheral vascular disease Diagnosis Current: Yes Resuscitation Status: Do Not Resuscitate Discussion: Discussed with patient with his on the bedside. He says he is a DNR and he does not want to receive any chest compressions, defibrillation or mechanical ventilation if the need arises. He says his , Gayle is his surrogate medical decision maker.
[2019-02-14] MEDS: INSULIN LISPRO 100 UNIT/ML 3 ML VIAL SUBCUT SCH ×2 (15:24→21:20)
[2019-02-14] MEDS: FUROSEMIDE INJ/PF 40 MG/4 ML SDV IV SCH (21:19)
[2019-02-14] MEDS: HEPARIN SOD (PORCINE) 5,000 UNIT/ML 1 ML VIAL SUBCUT SCH (21:56)
[2019-02-14] MEDS ORDERED: ASPIRIN 81 MG TABLET, ENT COATED PO SCH (22:00)
[2019-02-14] MEDS ORDERED: RAMIPRIL 10 MG CAPSULE PO SCH (22:00)
[2019-02-14] MEDS ORDERED: CARVEDILOL 12.5 MG TABLET PO SCH (22:00)
[2019-02-14] MEDS ORDERED: ATORVASTATIN CALCIUM 80 MG TABLET PO SCH (22:00)
[2019-02-14] MEDS ORDERED: GABAPENTIN 300 MG CAPSULE PO SCH (22:00)
[2019-02-15 05:39] LABS: ANION GAP 9 (5-19); BLOOD UREA NITROGEN 27 mg/dL (7-20); CALCIUM 8.9 mg/dL (8.4-10.2); CARBON DIOXIDE 29 mmol/L (22-30); CHLORIDE 102 mmol/L (98-107); GLUCOSE 115 mg/dL (75-110)
[2019-02-15] MEDS: INSULIN LISPRO 100 UNIT/ML 3 ML VIAL SUBCUT SCH (07:53)
[2019-02-15] MEDS ORDERED: (PENDING PHARMACY ID) (Insulin Degludec [Tresiba Flextouch U-100] 50 UNIT) SUBCUT SCH (08:00)
[2019-02-15] MEDS: FUROSEMIDE INJ/PF 40 MG/4 ML SDV IV SCH (09:28)
[2019-02-15] MEDS: HEPARIN SOD (PORCINE) 5,000 UNIT/ML 1 ML VIAL SUBCUT SCH (09:28)
--- NOTE | 2019-02-15 09:53 | RADIOLOGY REPORT (SQ) ---
EXAM DESCRIPTION: CHEST SINGLE VIEW COMPLETED DATE/TIME: 02/15/2019 9:12 am REASON FOR STUDY: reassess congestion COMPARISON: Chest films 08/27/2012, 07/23/2015, 11/18/2016, 02/14/2019 EXAM PARAMETERS: NUMBER OF VIEWS: One view. TECHNIQUE: Single frontal radiographic view of the chest acquired. RADIATION DOSE: NA LIMITATIONS: None. FINDINGS: LUNGS AND PLEURA: No opacities, masses or pneumothorax. No pleural effusion. MEDIASTINUM AND HILAR STRUCTURES: No masses. Contour normal. HEART AND VASCULAR STRUCTURES: Post sternotomy for CABG. No cardiomegaly BONES: No acute findings. HARDWARE: Left-sided dual lead pacemaker OTHER: No other significant finding. IMPRESSION: NO ACUTE RADIOGRAPHIC FINDING IN THE CHEST. TECHNICAL DOCUMENTATION: JOB ID: [id number] [employer]- All Rights Reserved Reading location - IP/workstation name: [email or web address]
[2019-02-15] MEDS ORDERED: MULTIVITAMIN TABLET PO SCH (10:00)
[2019-02-15] MEDS ORDERED: CARVEDILOL 6.25 MG TABLET PO SCH (10:00)
[2019-02-15] MEDS ORDERED: CLOPIDOGREL BISULFATE 75 MG TABLET PO SCH (10:00)
[2019-02-15] MEDS ORDERED: CYANOCOBALAMIN (VITAMIN B-12) 1,000 MCG TABLET PO SCH (10:00)
[2019-02-15 10:58] VITALS: BP 169/60
--- NOTE | 2019-02-16 09:12 | EKG REPORT ---
SEVERITY:- ABNORMAL ECG - SINUS RHYTHM FIRST DEGREE AV BLOCK PROBABLE LEFT ATRIAL ABNORMALITY NONSPECIFIC INTRAVENTRICULAR CONDUCTION DELAY MINIMAL ST DEPRESSION, LATERAL LEADS LVH : Confirmed by: Andrea Leach 16-Feb-2019 09:11:42
--- NOTE | 2019-02-16 16:40 | PDOC DISCHARGE SUMMARY ---
Impression - Admit/DC Date/PCP Admission Date/Primary Care Provider: 02/14/19 10:58 JIM AGUILAR MD Discharge Date: 02/15/19 - Discharge Diagnosis (1) Acute exacerbation of CHF (congestive heart failure) Is this a current diagnosis for this admission?: Yes (2) CAD (coronary artery disease), [place] coronary artery Is this a current diagnosis for this admission?: Yes (3) Diabetes mellitus type 2 in nonobese Is this a current diagnosis for this admission?: Yes (4) Peripheral vascular disease Is this a current diagnosis for this admission?: Yes - Additional Information Resuscitation Status: Do Not Resuscitate Discharge Diet: Cardiac, Diabetic Discharge Activity: Activity As Tolerated, Balance Activity w/Rest, Weigh Daily Referrals: JIM AGUILAR MD [Primary Care Provider] - 02/21/19 2:30 pm Home Medications: Amlodipine Besylate [Norvasc 5 mg Tablet] 5 mg PO DAILY 02/14/19 Aspirin [Ecotrin 81 mg EC Tablet] 81 mg PO QHS 02/14/19 Atorvastatin Calcium [Lipitor 80 mg Tablet] 80 mg PO QHS 02/14/19 Carvedilol [Coreg 12.5 mg Tablet] 12.5 mg PO QHS 02/14/19 Carvedilol [Coreg 6.25 mg Tablet] 6.25 mg PO DAILY 02/14/19 Clopidogrel Bisulfate [Plavix 75 mg Tablet] 75 mg PO DAILY 02/14/19 Cyanocobalamin (Vitamin B-12) [Vitamin B-12] 1,000 mcg PO DAILY 02/14/19 Furosemide [Lasix 40 mg Tablet] 40 mg PO DAILY 02/14/19 Gabapentin [Neurontin 300 mg Capsule] 300 mg PO QHS 02/14/19 Glimepiride [Amaryl 4 mg Tablet] 8 mg PO DAILY@1700 02/14/19 Insulin Aspart (Niacinamide) [Fiasp 100 Unit/ml Flextouch] 10 unit SQ DAILYP PRN 02/14/19 Insulin Degludec [Tresiba Flextouch U-100] 50 unit SQ QAM 02/14/19 Metformin HCl [Glucophage XR 500 mg Tablet] 1,000 mg PO BID@1700,2200 02/14/19 Multivitamin [Tab-A-Johann (Multiple Vitamin) Tablet] 1 tab PO DAILY 02/14/19 Nitroglycerin [Nitrostat 0.4 mg (1/150 Gr) Tabs 25/Bottle] 1 tab SL Q5MP PRN 02/14/19 Ramipril [Altace 10 mg Capsule] 1 cap PO QHS 02/14/19 Tamsulosin HCl [Flomax 0.4 mg Cap.sr] 0.4 mg PO DAILY@1700 02/14/19 Zolpidem Tartrate [Ambien 5 mg Tablet] 5 mg PO HSP PRN 02/14/19 History of Present Illiness History of Present Illness: JUAN HOLLY JR is a 73 year old male with a past medical history of CAD with multiple stenting, prior to his CABG, PVD with bilateral stents and a right-sided femoropopliteal bypass, hypertension, diabetes medius type II, chronic systolic heart failure with an EF of 35 to 40%, grade 2 diastolic dysfunction, and prior AICD placement who presented with progressive shortness of breath. Patient says that he has been having slowly but progressive shortness of breath in the past 5 days. He does report he ate a lot of potato chips last week. He also reported associated weight gain of 15 pounds over the past 5 days. He says that his bipedal edema has also worsened more than his baseline. He denies chest pain or chest tightness. Denies any cough fever or chills. Hospital Course Hospital Course: Mr. Holly is a 72-year-old male who presented with shortness of breath and pedal edema after reporting increased intake of potato chips at home. He was admitted for CHF exacerbation. He was started on IV Lasix. His congestion promptly improve with diuresis and repeat chest x-ray shows complete resolution of congestion and returned to his baseline the next day. He will be discharged on his CHF home regimen. He says he is looking forward to seeing a new service car driver in [place] next week. Physical Exam Vital Signs: Temp Pulse Resp BP Pulse Ox 97.7 F 74 18 169/60 H 94 02/15/19 11:13 02/15/19 11:13 02/15/19 11:13 02/15/19 07:51 02/15/19 11:13 Intake & Output 02/15/19 02/16/19 02/17/19 06:59 06:59 06:59 Intake Total 210 Output Total 700 Balance -490 Weight 184 lb 15.485 oz General appearance: PRESENT: no acute distress, well-developed, well-nourished Head exam: PRESENT: atraumatic, normocephalic Eye exam: PRESENT: conjunctiva pink, EOMI, PERRLA. ABSENT: scleral icterus Ear exam: PRESENT: normal external ear exam Mouth exam: PRESENT: moist, tongue midline Neck exam: ABSENT: carotid bruit, JVD, lymphadenopathy, thyromegaly Respiratory exam: PRESENT: clear to auscultation justyna. ABSENT: rales, rhonchi, wheezes Cardiovascular exam: PRESENT: RRR, systolic murmur. ABSENT: diastolic murmur, rubs Pulses: PRESENT: normal dorsalis pedis pul GI/Abdominal exam: PRESENT: normal bowel sounds, soft. ABSENT: distended, guarding, mass, organolmegaly, rebound, tenderness Rectal exam: PRESENT: deferred Extremities exam: PRESENT: +1 edema Neurological exam: PRESENT: alert, awake, oriented to person, oriented to place, oriented to time, oriented to situation, CN II-XII grossly intact. ABSENT: motor sensory deficit Results Laboratory Results: WBC 6.0 10^3/uL (4.0-10.5) 02/14/19 09:20 RBC 4.10 10^6/uL (4.35-5.55) L 02/14/19 09:20 Hgb 8.8 g/dL (13.5-17.0) L 02/14/19 09:20 Hct 28.5 % (37.9-51.0) L 02/14/19 09:20 MCV 70 fl (80-97) L 02/14/19 09:20 MCH 21.5 pg (27.0-33.4) L 02/14/19 09:20 MCHC 30.9 g/dL (32.0-36.0) L 02/14/19 09:20 RDW 19.9 % (11.5-14.0) H 02/14/19 09:20 Plt Count 201 10^3/uL (150-450) 02/14/19 09:20 Lymph % (Auto) 18.1 % (13-45) 02/14/19 09:20 [place] % (Auto) 8.4 % (3-13) 02/14/19 09:20 Eos % (Auto) 4.3 % (0-6) 02/14/19 09:20 Baso % (Auto) 1.9 % (0-2) 02/14/19 09:20 Absolute Neuts (auto) 4.0 10^3/uL (1.7-8.2) 02/14/19 09:20 Absolute Lymphs (auto) 1.1 10^3/uL (0.5-4.7) 02/14/19 09:20 Absolute Monos (auto) 0.5 10^3/uL (0.1-1.4) 02/14/19 09:20 Absolute Eos (auto) 0.3 10^3/uL (0.0-0.6) 02/14/19 09:20 Absolute Basos (auto) 0.1 10^3/uL (0.0-0.2) 02/14/19 09:20 Seg Neutrophils % 67.3 % (42-78) 02/14/19 09:20 PT 14.3 SEC (11.4-15.4) 02/14/19 09:20 INR 1.11 02/14/19 09:20 APTT 27.5 SEC (23.5-35.8) 02/14/19 09:20 Sodium 139.8 mmol/L (137-145) 02/15/19 04:43 Potassium 4.0 mmol/L (3.6-5.0) 02/15/19 04:43 Chloride 102 mmol/L (98-107) 02/15/19 04:43 Carbon Dioxide 29 mmol/L (22-30) 02/15/19 04:43 Anion Gap 9 (5-19) 02/15/19 04:43 BUN 27 mg/dL (7-20) H 02/15/19 04:43 Creatinine 0.81 mg/dL (0.52-1.25) 02/15/19 04:43 Est GFR ( Amer) > 60 (>60) 02/15/19 04:43 Est GFR (MDRD) Non-Af > 60 (>60) 02/15/19 04:43 Glucose 115 mg/dL (75-110) H 02/15/19 04:43 POC Glucose 177 mg/dL (70-110) H 02/15/19 07:50 Hemoglobin A1c % 8.0 % (4.7-6.0) H 02/14/19 09:20 Calcium 8.9 mg/dL (8.4-10.2) 02/15/19 04:43 Total Bilirubin 0.4 mg/dL (0.2-1.3) 02/14/19 09:20 Direct Bilirubin 0.1 mg/dL (0.0-0.4) 02/14/19 09:20 Neonat Total Bilirubin Not Reportable 02/14/19 09:20 Neonat Direct Bilirubin Not Reportable 02/14/19 09:20 Neonat Indirect Bili Not Reportable 02/14/19 09:20 AST 17 U/L (17-59) 02/14/19 09:20 ALT 13 U/L (<50) 02/14/19 09:20 Alkaline Phosphatase 97 U/L (38-126) 02/14/19 09:20 CK-MB (CK-2) 0.88 ng/mL (<4.55) 02/14/19 09:20 Troponin I 0.028 ng/mL 02/14/19 09:20 NT-Pro-B Natriuret Pep 1360 pg/mL (5-900) H 02/14/19 09:20 Total Protein 6.2 g/dL (6.3-8.2) L 02/14/19 09:20 Albumin 3.7 g/dL (3.5-5.0) 02/14/19 09:20 02/14/19 09:20 CK-MB (CK-2) 0.88 Troponin I 0.028 NT-Pro-B Natriuret Pep 1360 H Impressions: Chest X-Ray 02/14/19 09:01 IMPRESSION: Kaylynn lines at both lung bases, worrisome for mild interstitial pulmonary edema Chest X-Ray 02/15/19 07:00 IMPRESSION: NO ACUTE RADIOGRAPHIC FINDING IN THE CHEST. Stroke Is this a Stroke Patient?: No Acute Heart Failure - Is this a Heart Failure Patient?: Yes Documentation of LVEF assessment?: Yes LVEF < 40%?: No- if no continue to question #3 3. Anticoagulant therapy for permanect/persistent/paraoxysmal Afib or Aflutter: N/A
== END 2019-02-15 11:46 | disposition home or self-care (01) ==
LOC: ER 08:19 → EH 10:58 → INTOOBSV 10:58 → 3W 16:10
PROVIDERS: ADMIT Internal Medicine; ATTEND Internal Medicine
DX: I50.43 Acute on chronic combined systolic (congestive) and diastolic (congestive) heart failure (principal); I25.10 Atherosclerotic heart disease of native coronary artery without angina pectoris; E11.51 Type 2 diabetes mellitus with diabetic peripheral angiopathy without gangrene; I25.2 Old myocardial infarction; Z66 Do not resuscitate; Z79.82 Long term (current) use of aspirin; Z79.899 Other long term (current) drug therapy; Z79.02 Long term (current) use of antithrombotics/antiplatelets; Z95.5 Presence of coronary angioplasty implant and graft; Z95.1 Presence of aortocoronary bypass graft; Z79.4 Long term (current) use of insulin; Z95.810 Presence of automatic (implantable) cardiac defibrillator
CPT/HCPCS: 93005; 99285; 36415 ×2; 87086; 82553; 82962 ×2; 85025; 85610; 85730; 80048; 80053; 84484; 83036; 83880; 71045 ×2; 93010; G0378 ×3; A9270 ×12; J1940 ×2; J3490; J1815

== ENCOUNTER 2019-02-18 07:44 | Inpatient (IN) | payer MEDICARE, OTHER ==
[2019-02-18] MEDS ORDERED: ONDANSETRON HCL INJ/PF 4 MG/2 ML SDV IV ONE (08:28)
[2019-02-18] MEDS ORDERED: MORPHINE SULFATE 10 MG/ML INJ IV ONE (08:28)
--- NOTE | 2019-02-18 08:43 | ER Document Report ---
ED General - General Chief Complaint: Abdominal Pain Stated Complaint: ABDOMINAL PAIN Time Seen by Provider: 02/18/19 08:01 TRAVEL OUTSIDE OF THE [place] IN LAST 30 DAYS: No - HPI Notes: Patient is a 73-year-old male who presents emergency department for evaluation of lower abdominal pain, left greater than right. He states his been ongoing for the last several days, got worse last night. He states he believes is because he "ate some walnuts" and flared his diverticulitis. The patient has had a low-grade fever, T-max of 100.0. He is had some nausea but no emesis. He had a small bowel movement last night, states he gave himself an enema. Prior to that he had a normal bowel movement about 24 hours before then. He denies any dysuria. He states he has had some urinary frequency. - Related Data Allergies/Adverse Reactions: aspirin [Aspirin] Allergy (Verified 02/18/19 08:00) cephalexin [From Keflex] Allergy (Verified 02/18/19 08:00) Hives iodine [Iodine] Allergy (Verified 02/18/19 08:00) Hives latex Allergy (Verified 02/18/19 08:00) Hives oxycodone HCl [From Percocet] Adverse Reaction (Verified 02/18/19 08:00) Hives sulfamethoxazole [From Bactrim] Adverse Reaction (Verified 02/18/19 08:00) Nausea trimethoprim [From Bactrim] Adverse Reaction (Verified 02/18/19 08:00) Nausea IV contrast Allergy (Uncoded 02/18/19 08:00) Hives Past Medical History - General Information source: Patient - Social History Smoking Status: Former Smoker Family History: Reviewed & Not Pertinent, Other Patient has suicidal ideation: No Patient has homicidal ideation: No - Past Medical History Cardiac Medical History: Reports: Hx Congestive Heart Failure, Hx Coronary Artery Disease, Hx Heart Attack - X6, Hx Hypertension Pulmonary Medical History: Denies: Hx Asthma Neurological Medical History: Denies: Hx Cerebrovascular Accident, Hx Seizures Endocrine Medical History: Reports: Hx Diabetes Mellitus Type 2 - IDDM Renal/ Medical History: Denies: Hx Peritoneal Dialysis GI Medical History: Reports: Hx Diverticulitis. Denies: Hx Hepatitis, Hx Hiatal Hernia, Hx Ulcer Infectious Medical History: Denies: Hx Hepatitis Past Surgical History: Reports: Hx Cardiac Catheterization, Hx Cardiac Surgery - ICD, 17 stents, triple bypass, Hx Cholecystectomy, Hx Coronary Artery Bypass Graft, Hx Coronary Stent - x 10, Hx Open Heart Surgery, Hx Pacemaker, Hx Vascul ar Surgery - fem pop tp right leg - Immunizations Hx Diphtheria, Pertussis, Tetanus Vaccination: No Review of Systems - Review of Systems Constitutional: No symptoms reported EENT: No symptoms reported Cardiovascular: No symptoms reported Respiratory: No symptoms reported Gastrointestinal: See HPI Genitourinary: No symptoms reported Musculoskeletal: No symptoms reported Skin: No symptoms reported Neurological/Psychological: No symptoms reported Physical Exam - Vital signs Vitals: Temp Pulse Resp BP Pulse Ox 99.1 F 101 H 17 124/44 L 92 02/18/19 07:57 02/18/19 07:57 02/18/19 07:57 02/18/19 07:57 02/18/19 07:57 - Notes Notes: Vital signs reviewed, please refer to chart. Head is normocephalic, atraumatic. Pupils equal round, reactive to light. Neck is supple without meningismus. Heart is regular rate and rhythm. Lungs are clear to auscultation bilaterally. Abdomen is soft, moderate left and right lower quadrant tenderness to palpation without rebound or guarding quadrant tenderness palpation without rebound or guarding, normoactive bowel sounds throughout. Extremities without cyanosis, clubbing. Posterior calves are nontender. Peripheral pulses are equal. Skin is warm and dry. Patient is awake, alert, neurological exam is nonfocal. Course - Re-evaluation Re-evalutation: 02/18/19 11:05 Patient presents emergency department for evaluation. He has abdominal pain. Given the nature of his tenderness, as well as his concern for diverticulitis, CT scan of the abdomen pelvis with IV contrast was ordered. Laboratory investigations are largely unremarkable. CT scan does show right-sided diverticulitis with appendiceal and bladder dome involvement. Given the extent of this involvement as well as his tenderness and comorbidities, I consulted Dr. Diaz. He will evaluate the patient. Patient given IV antibiotics, will continue to monitor. 02/18/19 11:57 I went back and reevaluate the patient. IV antibiotics have been ordered, infusing at this time. On reexamination patient's abdomen is more significantly tender, he does have some voluntary guarding. He does not have rebound at this time. 02/18/19 12:[address] Diaz. He did evaluate the patient. He does not believe him to have a surgical abdomen at this time. Given his comorbidities, patient will be admitted. I spoke with Dr. Lovett, he will accept the patient. He will further discuss the patient with Dr. Diaz. - Vital Signs Vital signs: Temp Pulse Resp BP Pulse Ox 99.1 F 101 H 17 124/44 L 92 02/18/19 07:57 02/18/19 07:57 02/18/19 07:57 02/18/19 07:57 02/18/19 07:57 - Laboratory Result Diagrams: 02/18/19 08:39 02/18/19 08:39 Laboratory results interpreted by me: 02/18/19 02/18/19 02/18/19 08:39 08:39 09:07 Hgb 9.3 L Hct 30.0 L MCV 69 L MCH 21.4 L MCHC 31.0 L RDW 20.3 H Seg Neuts % (Manual) 92 H Band Neutrophils % 2 L Lymphocytes % (Manual) 1 L Abs Lymphs (Manual) 0.1 L BUN 27 H Glucose 133 H Urine Protein >=500 H Urine Ketones TRACE H - Diagnostic Test Radiology reviewed: Reports reviewed Radiology results interpreted by me: 02/18/19 12:22 Abdomen/Pelvis CT 02/18/19 08:28 IMPRESSION: Right lower quadrant distal sigmoid colon diverticulitis with secondary involvement of the bladder dome and appendix Discharge - Discharge Clinical Impression: Acute diverticulitis Condition: Stable Disposition: ADMITTED INPATIENT Admitting Provider: Kacie (Hospitalist) Unit Admitted: [facility]
[2019-02-18 08:52] LABS: HEMOGLOBIN 9.3 g/dL (13.5-17.0); MEAN CORPUSCULAR HEMOGLOBIN 21.4 pg (27.0-33.4); MEAN CORPUSCULAR VOLUME 69 fl (80-97); PLATELET COUNT 187 10^3/uL (150-450); RED BLOOD COUNT 4.36 10^6/uL (4.35-5.55); RED CELL DISTRIBUTION WIDTH 20.3 % (11.5-14.0); WHITE BLOOD COUNT 8.4 10^3/uL (4.0-10.5)
[2019-02-18 09:08] LABS: ALBUMIN 3.7 g/dL (3.5-5.0); ALKALINE PHOSPHATASE 71 U/L (38-126); ANION GAP 9 (5-19); ASPARTATE AMINO TRANSFERASE 27 U/L (17-59); BILIRUBIN,DIRECT 0.1 mg/dL (0.0-0.4); BILIRUBIN,TOTAL 0.8 mg/dL (0.2-1.3); BLOOD UREA NITROGEN 27 mg/dL (7-20); CALCIUM 8.9 mg/dL (8.4-10.2); CARBON DIOXIDE 29 mmol/L (22-30); CHLORIDE 101 mmol/L (98-107); GLUCOSE 133 mg/dL (75-110); POTASSIUM 4.4 mmol/L (3.6-5.0); TOTAL PROTEIN 6.3 g/dL (6.3-8.2)
--- NOTE | 2019-02-18 09:34 | RADIOLOGY REPORT (SQ) ---
EXAM DESCRIPTION: CT ABD/PELVIS NO ORAL OR IV COMPLETED DATE/TIME: 02/18/2019 9:01 am REASON FOR STUDY: lower abdominal pain, eval for diverticulitis COMPARISON: CT abdomen pelvis 01/01/2018 TECHNIQUE: CT scan of the abdomen and pelvis performed without intravenous or oral contrast. Images reviewed with lung, soft tissue, and bone windows. Reconstructed coronal and sagittal MPR images revi ewed. All images stored on PACS. All CT scanners at this facility use dose modulation, iterative reconstruction, and/or weight based d osing when appropriate to reduce radiation dose to as low as reasonably achievable (ALARA). [facility]: Dose Right [facility]: CareDose [facility]: Dose Right [facility]: Teradose 4D [facility]: Smart ToVieFor RADIATION DOSE: CT Rad equipment meets quality standard of care and radiation dose reduction techniq ues were employed. CTDIvol: 8.5 mGy. DLP: 494 mGy-cm.mGy. LIMITATIONS: No oral contrast was given FINDINGS: On coronal images 30-41, and axial images 71-75, a short segment of distal sigmoid colon w all thickening and luminal narrowing is present with surrounding inflammation in the adjacent fat. T his is along distal sigmoid colon in the right lower quadrant, with surrounding inflammatory strandin g and extending to the right lower quadrant and appendix, and along the bladder dome. No intravesica l air. Adjacent 1.8 x 1.1 cm lymph node present on coronal image 33. This most likely represents si gmoid colon diverticulitis with secondary involvement of the appendix and bladder dome. No free intraperitoneal air or free fluid. No CT signs of bowel obstruction. Stomach decompressed. LOWER CHEST: Lung bases are clear. Cardiomegaly, CABG, pacemaker NON-CONTRASTED LIVER, SPLEEN, ADRENALS: Evaluation limited by lack of IV contrast. No identified sign ificant masses. PANCREAS: No masses. No peripancreatic inflammatory changes. GALLBLADDER: Surgically absent. RIGHT KIDNEY AND URETER: No suspicious masses. Assessment limited by lack of IV contrast. No signif icant calcifications. No hydronephrosis or hydroureter. LEFT KIDNEY AND URETER: No suspicious masses. Assessment limited by lack of IV contrast. No signifi cant calcifications. No hydronephrosis or hydroureter. AORTA AND RETROPERITONEUM: No aneurysm. No retroperitoneal masses or adenopathy. BOWEL AND PERITONEAL CAVITY: As above APPENDIX: As above PELVIS, BLADDER, AND ABDOMINAL WALL:Thickening of the bladder dome due to adjacent diverticulitis. P rostate 6.5 x 6.5 cm in size with distended urinary bladder. No free pelvic fluid. BONES: No significant findings. OTHER: Small fatty bilateral inguinal hernias. IMPRESSION: Right lower quadrant distal sigmoid colon diverticulitis with secondary involvement of t he bladder dome and appendix COMMENT: Quality ID # [id number]: Final reports with documentation of one or more dose reduction techniques (e.g., Automated exposure control, adjustment of the mA and/or kV according to patient size, use of iterative reconstruction technique) TECHNICAL DOCUMENTATION: JOB ID: [id number] [employer]- All Rights Reserved Reading location - IP/workstation name: [email or web address]
[2019-02-18 09:47] LABS: ABSOLUTE LYMPHOCYTES# (MANUAL) 0.1 10^3/uL (0.5-4.7); ABSOLUTE MONOCYTES # (MANUAL) 0.4 10^3/uL (0.1-1.4); BAND NEUTROPHILS % (MANUAL) 2 % (3-5); BASOPHILS % (MANUAL) 0 % (0-2); EOSINOPHILS % (MANUAL) 0 % (0-6); LYMPHOCYTES % (MANUAL) 1 % (13-45); MONOCYTES % (MANUAL) 5 % (3-13); SEGMENTED NEUTROPHILS % (MAN) 92 % (42-78); TOTAL CELLS COUNTED 100
[2019-02-18 09:47] LABS: APPEARANCE,URINE CLEAR; BILIRUBIN,URINE NEGATIVE (NEGATIVE); COLOR,URINE YELLOW; GLUCOSE, URINE NEGATIVE (NEGATIVE); KETONES,URINE TRACE mg/dL (NEGATIVE); LEUKOCYTE ESTERASE,URINE NEGATIVE (NEGATIVE); NITRITE,URINE NEGATIVE (NEGATIVE); PROTEIN,URINE >=500 mg/dL (NEGATIVE); URINE SPECIFIC GRAVITY 1.017; UROBILINOGEN,URINE NEGATIVE mg/dL (<2.0)
[2019-02-18 09:49] LABS: ANISOCYTOSIS SLIGHT; HYPOCHROMASIA SLIGHT; PLATELET COMMENT ADEQUATE; POIKILOCYTOSIS SLIGHT
[2019-02-18] MEDS ORDERED: CIPROFLOXACIN 400 MG/D5W RTU 400 MG/200 ML RTUPB IV ONE (11:06)
[2019-02-18] MEDS ORDERED: METRONIDAZOLE 500 MG/NS RTU 500 MG/100 ML RTUPB IV ONE (11:07)
[2019-02-18] MEDS ORDERED: GLUCAGON,HUMAN RECOMB 1 MG INJ IM PRN (13:30)
[2019-02-18] MEDS ORDERED: DEXTROSE 40% GEL 15 GM TUBE PO PRN ×2 (13:30)
[2019-02-18] MEDS ORDERED: DEXTROSE 50%-WATER 25 GM/50 ML DISP.SYRIN IV PRN ×2 (13:30)
--- NOTE | 2019-02-18 13:50 | PDOC H&P ---
History of Present Illness Admission Date/PCP: 02/18/19 12:46 JIM AGUILAR MD Patient complains of: lower abdominal pain History of Present Illness: JUAN HOLLY JR is a 73 year old male with a past medical history of CAD with multiple stenting, prior to his CABG, PVD with bilateral stents and a right-sided femoropopliteal bypass, hypertension, diabetes medius type II, chronic systolic heart failure with an EF of 35 to 40%, grade 2 diastolic dysfunction, and prior AICD placement who is presenting with lower abdominal pain. Patient was recently admitted for CHF exacerbation after presenting with increasing shortness of breath and bipedal edema. His exacerbation resolved and he was discharged on Monday morning. He says that around Monday evening, he started having lower abdominal pain which he described as sharp in nature. He denies any diarrhea. He had some nausea but no vomiting. He complained of chills at home. He says he had a regular non-watery, nonbloody bowel movement this morning. In the ER, CT of the abdomen shows acute sigmoid diverticulitis. He was also assessed and evaluated by surgery in the ER. He denies chest pain or SOB. Past Medical History Cardiac Medical History: Reports: Congestive Heart Failure, Coronary Artery Disease, Myocardial Infarction - X6, Hypertension Pulmonary Medical History: Denies: Asthma Neurological Medical History: Denies: Seizures Endocrine Medical History: Reports: Diabetes Mellitus Type 2 - IDDM GI Medical History: Reports: Diverticulitis Denies: Hepatitis, Hiatal Hernia Hematology: Denies: Anemia, Sickle Cell Disease Past Surgical History Past Surgical History: Reports: Cardiac Catheterization, Cholecystectomy, Coronary Artery Bypass Graft, Coronary Stent - x 10, Pacemaker, Vascular Surgery - fem pop tp right leg Social History Smoking Status: Former Smoker Frequency of Alcohol Use: None Hx Recreational Drug Use: No Drugs: Cocaine Hx Prescription Drug Abuse: No Family History Family History: Reviewed & Not Pertinent, Other Parental Family History Reviewed: Yes - no premature CAD Children Family History Reviewed: No Sibling(s) Family History Reviewed.: No Medication/Allergy Home Medications: Amlodipine Besylate [Norvasc 5 mg Tablet] 5 mg PO DAILY 02/14/19 Aspirin [Ecotrin 81 mg EC Tablet] 81 mg PO QHS 02/14/19 Atorvastatin Calcium [Lipitor 80 mg Tablet] 80 mg PO QHS 02/14/19 Carvedilol [Coreg 12.5 mg Tablet] 12.5 mg PO QHS 02/14/19 Carvedilol [Coreg 6.25 mg Tablet] 6.25 mg PO DAILY 02/14/19 Clopidogrel Bisulfate [Plavix 75 mg Tablet] 75 mg PO DAILY 02/14/19 Cyanocobalamin (Vitamin B-12) [Vitamin B-12] 1,000 mcg PO DAILY 02/14/19 Furosemide [Lasix 40 mg Tablet] 40 mg PO DAILY 02/14/19 Gabapentin [Neurontin 300 mg Capsule] 300 mg PO QHS 02/14/19 Glimepiride [Amaryl 4 mg Tablet] 8 mg PO DAILY@1700 02/14/19 Insulin Aspart (Niacinamide) [Fiasp 100 Unit/ml Flextouch] 10 unit SQ DAILYP PRN 02/14/19 Insulin Degludec [Tresiba Flextouch U-100] 50 unit SQ QAM 02/14/19 Metformin HCl [Glucophage XR 500 mg Tablet] 1,000 mg PO BID@1700,2200 02/14/19 Multivitamin [Tab-A-Johann (Multiple Vitamin) Tablet] 1 tab PO DAILY 02/14/19 Nitroglycerin [Nitrostat 0.4 mg (1/150 Gr) Tabs 25/Bottle] 1 tab SL Q5MP PRN 02/14/19 Ramipril [Altace 10 mg Capsule] 1 cap PO QHS 02/14/19 Tamsulosin HCl [Flomax 0.4 mg Cap.sr] 0.4 mg PO DAILY@1700 02/14/19 Zolpidem Tartrate [Ambien 5 mg Tablet] 5 mg PO HSP PRN 02/14/19 Allergies/Adverse Reactions: aspirin [Aspirin] Allergy (Verified 02/18/19 08:00) cephalexin [From Keflex] Allergy (Verified 02/18/19 08:00) Hives iodine [Iodine] Allergy (Verified 02/18/19 08:00) Hives latex Allergy (Verified 02/18/19 08:00) Hives oxycodone HCl [From Percocet] Adverse Reaction (Verified 02/18/19 08:00) Hives sulfamethoxazole [From Bactrim] Adverse Reaction (Verified 02/18/19 08:00) Nausea trimethoprim [From Bactrim] Adverse Reaction (Verified 02/18/19 08:00) Nausea IV contrast Allergy (Uncoded 02/18/19 08:00) Hives Review of Systems All systems: reviewed and no additional remarkable complaints except as stated - as mentioned in HPI Physical Exam Vital Signs: Temp Pulse Resp BP Pulse Ox 99.1 F 101 H 17 124/44 L 92 02/18/19 07:57 02/18/19 07:57 02/18/19 07:57 02/18/19 07:57 02/18/19 07:57 Intake & Output 02/17/19 02/18/19 02/19/19 06:59 06:59 06:59 Intake Total 300 Balance 300 Weight 184 lb 15.485 oz General appearance: PRESENT: no acute distress, well-developed, well-nourished Head exam: PRESENT: atraumatic, normocephalic Eye exam: PRESENT: conjunctiva pink, EOMI, PERRLA. ABSENT: scleral icterus Ear exam: PRESENT: normal external ear exam Mouth exam: PRESENT: moist, tongue midline Neck exam: ABSENT: carotid bruit, JVD, lymphadenopathy, thyromegaly Respiratory exam: PRESENT: clear to auscultation justyna. ABSENT: rales, rhonchi, wheezes Cardiovascular exam: PRESENT: RRR, systolic murmur. ABSENT: diastolic murmur, rubs Pulses: PRESENT: normal dorsalis pedis pul GI/Abdominal exam: PRESENT: normal bowel sounds, soft, tenderness - on the RLQ, negative rebound tenderness, negative Rovsing's sign. ABSENT: distended, guarding, mass, organolmegaly, rebound Rectal exam: PRESENT: deferred Neurological exam: PRESENT: alert, awake, oriented to person, oriented to place, oriented to time, oriented to situation, CN II-XII grossly intact. ABSENT: motor sensory deficit Results Laboratory Results: 02/18/19 08:39 02/18/19 08:39 02/18/19 02/18/19 02/18/19 08:39 08:39 09:07 WBC 8.4 RBC 4.36 Hgb 9.3 L Hct 30.0 L MCV 69 L MCH 21.4 L MCHC 31.0 L RDW 20.3 H Plt Count 187 Seg Neutrophils % Not Reportable Sodium 138.7 Potassium 4.4 Chloride 101 Carbon Dioxide 29 Anion Gap 9 BUN 27 H Creatinine 0.99 Est GFR ( Amer) > 60 Glucose 133 H Calcium 8.9 Total Bilirubin 0.8 AST 27 Alkaline Phosphatase 71 Total Protein 6.3 Albumin 3.7 Urine Color YELLOW Urine Appearance CLEAR Urine pH 7.0 Ur Specific [place] 1.017 Urine Protein >=500 H Urine Glucose (UA) NEGATIVE Urine Ketones TRACE H Urine Blood NEGATIVE Urine Nitrite NEGATIVE Ur Leukocyte Esterase NEGATIVE Urine WBC (Auto) 1 Urine RBC (Auto) 1 Impressions: Abdomen/Pelvis CT 02/18/19 08:28 IMPRESSION: Right lower quadrant distal sigmoid colon diverticulitis with secondary involvement of the bladder dome and appendix Assessment and Plan - Diagnosis (1) Acute diverticulitis Is this a current diagnosis for this admission?: Yes Plan: He has been evaluated by surgery in the ER. Will have patient on IV antibiotics. Will keep him NPO for now. (2) Chronic systolic (congestive) heart failure Is this a current diagnosis for this admission?: Yes Plan: Not in exacerbation. He actually looks dry and dehydrated at the moment. He has not been eating or drinking a lot at home due to the abdominal pain and nausea. Will start him on gentle hydration due to underlying CHF. (3) Diabetes mellitus type 2 in nonobese Is this a current diagnosis for this admission?: Yes Plan: Sliding scale for now. (4) CAD (coronary artery disease), [place] coronary artery Is this a current diagnosis for this admission?: Yes Plan: Stable. - Time Time Spent with patient: 25-34 minutes
--- NOTE | 2019-02-18 13:52 | ADVANCED CARE ---
- Diagnosis (1) Acute diverticulitis Diagnosis Current: Yes (2) Chronic systolic (congestive) heart failure Diagnosis Current: Yes (3) CAD (coronary artery disease), [place] coronary artery Diagnosis Current: Yes (4) Diabetes mellitus type 2 in nonobese Diagnosis Current: Yes Resuscitation Status: Do Not Resuscitate Discussion: Patient remains a DNR. However he is amenable to temporary intubation if needed in the event that he really will require surgery for his diverticulitis. His , Gayle remains his surrogate medical decision maker.
[2019-02-18] MEDS: MORPHINE SULFATE 10 MG/ML INJ IV PRN ×2 (15:07→20:06)
[2019-02-18] MEDS: HEPARIN SOD (PORCINE) 5,000 UNIT/ML 1 ML VIAL SUBCUT SCH (15:07)
--- NOTE | 2019-02-18 16:01 | PDOC CONSULTATION ---
Consultation Consult Date: 02/18/19 Provider Consulted: SURGICAL SURGICALIST Consult reason:: uncomplicated diverticulitis History of Present Illness Admission Date/PCP: 02/18/19 12:46 JIM AGUILAR MD Patient complains of: lower abdominal pain History of Present Illness: JUAN HOLLY JR is a 73 year old male with a several day history of sharp, stabbing lower abdominal pain. He has a complicated medical history including a recent admission for congestive heart failure, diabetes, and history of DE. It stretches from his right lower quadrant over to his left lower quadrant. Patient reports that the pain is slowly worsening. He denies significant fevers or chills. He rates his pain as 6 out of 10. He has experienced diverticulitis in the past, that was successfully treated with antibiotics. The patient denies melena, hematochezia, hematemesis. His pain does not radiate. He denies nausea and vomiting. He also denies chest pain, shortness of breath, headache, blurry vision, dizziness, fatigue. His last colonoscopy was approximately 5 years ago and was normal. Past Medical History Cardiac Medical History: Reports: Congestive Heart Failure, Coronary Artery Disease, Myocardial Infarction - X6, Hypertension Pulmonary Medical History: Denies: Asthma Neurological Medical History: Denies: Seizures Endocrine Medical History: Reports: Diabetes Mellitus Type 2 - IDDM GI Medical History: Reports: Diverticulitis Denies: Hepatitis, Hiatal Hernia Hematology: Denies: Anemia, Sickle Cell Disease Past Surgical History Past Surgical History: Reports: Cardiac Catheterization, Cholecystectomy, Coronary Artery Bypass Graft, Coronary Stent - x 10, Pacemaker, Vascular Surgery - fem pop tp right leg Social History Smoking Status: Former Smoker Frequency of Alcohol Use: None Hx Recreational Drug Use: No Drugs: Cocaine Hx Prescription Drug Abuse: No - Advance Directive Resuscitation Status: Do Not Resuscitate Family History Family History: Reviewed & Not Pertinent, Other Parental Family History Reviewed: Yes Children Family History Reviewed: Yes Sibling(s) Family History Reviewed.: Yes Medication/Allergy Home Medications: Amlodipine Besylate [Norvasc 5 mg Tablet] 5 mg PO DAILY 02/14/19 Aspirin [Ecotrin 81 mg EC Tablet] 81 mg PO QHS 02/14/19 Atorvastatin Calcium [Lipitor 80 mg Tablet] 80 mg PO QHS 02/14/19 Carvedilol [Coreg 12.5 mg Tablet] 12.5 mg PO QHS 02/14/19 Carvedilol [Coreg 6.25 mg Tablet] 6.25 mg PO DAILY 02/14/19 Clopidogrel Bisulfate [Plavix 75 mg Tablet] 75 mg PO DAILY 02/14/19 Cyanocobalamin (Vitamin B-12) [Vitamin B-12] 1,000 mcg PO DAILY 02/14/19 Furosemide [Lasix 40 mg Tablet] 40 mg PO DAILY 02/14/19 Gabapentin [Neurontin 300 mg Capsule] 300 mg PO QHS 02/14/19 Glimepiride [Amaryl 4 mg Tablet] 8 mg PO DAILY@1700 02/14/19 Insulin Aspart (Niacinamide) [Fiasp 100 Unit/ml Flextouch] 10 unit SQ DAILYP PRN 02/14/19 Insulin Degludec [Tresiba Flextouch U-100] 50 unit SQ QAM 02/14/19 Metformin HCl [Glucophage XR 500 mg Tablet] 1,000 mg PO BID@1700,2200 02/14/19 Multivitamin [Tab-A-Johann (Multiple Vitamin) Tablet] 1 tab PO DAILY 02/14/19 Nitroglycerin [Nitrostat 0.4 mg (1/150 Gr) Tabs 25/Bottle] 1 tab SL Q5MP PRN 02/14/19 Ramipril [Altace 10 mg Capsule] 1 cap PO QHS 02/14/19 Tamsulosin HCl [Flomax 0.4 mg Cap.sr] 0.4 mg PO DAILY@1700 02/14/19 Zolpidem Tartrate [Ambien 5 mg Tablet] 5 mg PO HSP PRN 02/14/19 Allergies/Adverse Reactions: aspirin [Aspirin] Allergy (Verified 02/18/19 08:00) cephalexin [From Keflex] Allergy (Verified 02/18/19 08:00) Hives iodine [Iodine] Allergy (Verified 02/18/19 08:00) Hives latex Allergy (Verified 02/18/19 08:00) Hives oxycodone HCl [From Percocet] Adverse Reaction (Verified 02/18/19 08:00) Hives sulfamethoxazole [From Bactrim] Adverse Reaction (Verified 02/18/19 08:00) Nausea trimethoprim [From Bactrim] Adverse Reaction (Verified 02/18/19 08:00) Nausea IV contrast Allergy (Uncoded 02/18/19 08:00) Hives Review of Systems Constitutional: ABSENT: anorexia, chills, fatigue, fever(s), headache(s), weakness Eyes: ABSENT: visual disturbances Ears: ABSENT: hearing changes Nose, Mouth, and Throat: ABSENT: sore throat Cardiovascular: ABSENT: chest pain Respiratory: ABSENT: cough, dyspnea Gastrointestinal: PRESENT: abdominal pain, bloating. ABSENT: hematochezia, melena, nausea, vomiting Musculoskeletal: ABSENT: back pain Integumentary: ABSENT: pruritus, rash, wounds Neurological: ABSENT: confusion, convulsions, dizziness Psychiatric: ABSENT: anxiety, depression Endocrine: ABSENT: cold intolerance, heat intolerance Hematologic/Lymphatic: ABSENT: easy bleeding, easy bruising Physical Exam Vital Signs: Temp Pulse Resp BP Pulse Ox 99.1 F 101 H 17 124/44 L 92 02/18/19 07:57 02/18/19 07:57 02/18/19 07:57 02/18/19 07:57 02/18/19 07:57 Intake & Output 02/17/19 02/18/19 02/19/19 06:59 06:59 06:59 Intake Total 300 Balance 300 Weight 83.9 kg General appearance: PRESENT: no acute distress, cooperative. ABSENT: disheveled Head exam: PRESENT: atraumatic, normocephalic Eye exam: PRESENT: EOMI, PERRLA. ABSENT: scleral icterus Mouth exam: PRESENT: moist, neck supple Teeth exam: ABSENT: poor dentation Neck exam: ABSENT: meningismus, tenderness, thyromegaly, tracheal deviation, tracheostomy Respiratory exam: PRESENT: clear to auscultation justyna, unlabored. ABSENT: chest wall tenderness, tachypnea, wheezes Cardiovascular exam: PRESENT: RRR Pulses: PRESENT: normal radial pulses Vascular exam: PRESENT: normal capillary refill. ABSENT: pallor GI/Abdominal exam: PRESENT: distended - Mild, soft, tenderness - Mild tenderness in bilateral lower quadrants. ABSENT: guarding, rebound, rigid Rectal exam: PRESENT: deferred Extremities exam: ABSENT: clubbing Musculoskeletal exam: ABSENT: deformity Neurological exam: PRESENT: alert, awake, oriented to person, oriented to place, oriented to time, oriented to situation, CN II-XII grossly intact. ABSENT: motor sensory deficit Psychiatric exam: ABSENT: agitated, anxious, depressed Focused psych exam: ABSENT: delusional Skin exam: ABSENT: cyanosis, erythema, jaundice Results Laboratory Results: 02/18/19 08:39 02/18/19 08:39 02/18/19 02/18/19 02/18/19 08:39 08:39 09:07 WBC 8.4 RBC 4.36 Hgb 9.3 L Hct 30.0 L MCV 69 L MCH 21.4 L MCHC 31.0 L RDW 20.3 H Plt Count 187 Seg Neutrophils % Not Reportable Sodium 138.7 Potassium 4.4 Chloride 101 Carbon Dioxide 29 Anion Gap 9 BUN 27 H Creatinine 0.99 Est GFR ( Amer) > 60 Glucose 133 H Calcium 8.9 Total Bilirubin 0.8 AST 27 Alkaline Phosphatase 71 Total Protein 6.3 Albumin 3.7 Urine Color YELLOW Urine Appearance CLEAR Urine pH 7.0 Ur Specific [place] 1.017 Urine Protein >=500 H Urine Glucose (UA) NEGATIVE Urine Ketones TRACE H Urine Blood NEGATIVE Urine Nitrite NEGATIVE Ur Leukocyte Esterase NEGATIVE Urine WBC (Auto) 1 Urine RBC (Auto) 1 Impressions: Abdomen/Pelvis CT 02/18/19 08:28 IMPRESSION: Right lower quadrant distal sigmoid colon diverticulitis with secondary involvement of the bladder dome and appendix Assessment & Plan - Diagnosis (1) Acute diverticulitis Is this a current diagnosis for this admission?: Yes - Plan Summary Plan Summary: This is a 73-year-old male with uncomplicated diverticulitis. The patient has inflammation of the sigmoid colon. I have reviewed the CT scan. I see no evidence for acute appendicitis. There are several fat planes between the sigmoid colon and the appendix. There is no extraluminal air or large pelvic abscess. The patient is tender, however does not have signs of peritonitis. I have recommended antibiotics to treat the patient's diverticulitis. I do not believe he will require surgical intervention. We will follow closely with you.
[2019-02-18] MEDS: METRONIDAZOLE 500 MG/NS RTU 500 MG/100 ML RTUPB IV SCH ×2 (17:28→23:38)
[2019-02-18] MEDS: INSULIN LISPRO 100 UNIT/ML 3 ML VIAL SUBCUT SCH (17:34)
--- NOTE | 2019-02-18 20:17 | RADIOLOGY REPORT (SQ) ---
EXAM DESCRIPTION: Portable chest x-ray CLINICAL HISTORY: 73 years Male, hypoxia COMPARISON: 02/14/2019. FINDINGS: Mild cardiomegaly. No suspicious mediastinal widening. The fibular leads in good position. No significant acute lung pleural bone abnormalities. IMPRESSION: No obvious acute findings.
[2019-02-18] MEDS: CIPROFLOXACIN 400 MG/D5W RTU 400 MG/200 ML RTUPB IV SCH (21:23)
--- NOTE | 2019-02-19 00:31 | EKG REPORT ---
SEVERITY:- ABNORMAL ECG - SINUS RHYTHM FIRST DEGREE AV BLOCK PROBABLE LVH WITH SECONDARY REPOL ABNRM : Confirmed by: Sonia Roth MD 19-Feb-2019 00:30:52
[2019-02-19] MEDS: INSULIN LISPRO 100 UNIT/ML 3 ML VIAL SUBCUT SCH ×5 (00:39→23:34)
[2019-02-19] MEDS: MORPHINE SULFATE 10 MG/ML INJ IV PRN ×4 (02:00→20:06)
[2019-02-19] MEDS: HEPARIN SOD (PORCINE) 5,000 UNIT/ML 1 ML VIAL SUBCUT SCH ×2 (02:05→13:42)
[2019-02-19] MEDS: METRONIDAZOLE 500 MG/NS RTU 500 MG/100 ML RTUPB IV SCH ×4 (05:49→23:34)
--- NOTE | 2019-02-19 08:30 | PDOC PROGRESS REPORT ---
Subjective Progress Note for:: 02/19/19 Subjective:: 02/19/2019-crampy abdominal pain with flatulence Reason For Visit: ACUTE DIVERTICULITIS, CHF Physical Exam Vital Signs: Temp Pulse Resp BP Pulse Ox 97.8 F 90 18 134/53 H 95 02/19/19 07:28 02/19/19 07:28 02/19/19 07:28 02/19/19 07:28 02/19/19 07:28 Intake & Output 02/18/19 02/19/19 02/20/19 06:59 06:59 06:59 Intake Total 700 100 Output Total 400 Balance 300 100 Weight 82.2 kg General appearance: PRESENT: no acute distress, well-developed, well-nourished Neck exam: ABSENT: carotid bruit, JVD, lymphadenopathy, thyromegaly Respiratory exam: PRESENT: clear to auscultation justyna. ABSENT: rales, rhonchi, wheezes Cardiovascular exam: PRESENT: RRR. ABSENT: diastolic murmur, rubs, systolic murmur Pulses: PRESENT: normal dorsalis pedis pul GI/Abdominal exam: PRESENT: hypoactive bowel sounds, soft Extremities exam: PRESENT: full ROM. ABSENT: calf tenderness, clubbing, pedal edema Neurological exam: PRESENT: alert, awake, oriented to person, oriented to place, oriented to time, oriented to situation, CN II-XII grossly intact. ABSENT: motor sensory deficit Psychiatric exam: PRESENT: appropriate affect, normal mood. ABSENT: homicidal ideation, suicidal ideation Skin exam: PRESENT: dry, intact, warm. ABSENT: cyanosis, rash Results Laboratory Results: 02/18/19 08:39 02/18/19 08:39 02/18/19 02/18/19 02/18/19 08:39 08:39 09:07 WBC 8.4 RBC 4.36 Hgb 9.3 L Hct 30.0 L MCV 69 L MCH 21.4 L MCHC 31.0 L RDW 20.3 H Plt Count 187 Seg Neutrophils % Not Reportable Sodium 138.7 Potassium 4.4 Chloride 101 Carbon Dioxide 29 Anion Gap 9 BUN 27 H Creatinine 0.99 Est GFR ( Amer) > 60 Glucose 133 H Calcium 8.9 Total Bilirubin 0.8 AST 27 Alkaline Phosphatase 71 Total Protein 6.3 Albumin 3.7 Urine Color YELLOW Urine Appearance CLEAR Urine pH 7.0 Ur Specific [place] 1.017 Urine Protein >=500 H Urine Glucose (UA) NEGATIVE Urine Ketones TRACE H Urine Blood NEGATIVE Urine Nitrite NEGATIVE Ur Leukocyte Esterase NEGATIVE Urine WBC (Auto) 1 Urine RBC (Auto) 1 Impressions: Chest X-Ray 02/18/19 00:00 IMPRESSION: No obvious acute findings. Abdomen/Pelvis CT 02/18/19 08:28 IMPRESSION: Right lower quadrant distal sigmoid colon diverticulitis with secondary involvement of the bladder dome and appendix Assessment and Plan - Diagnosis (1) Acute diverticulitis Is this a current diagnosis for this admission?: Yes Plan: He has been evaluated by surgery in the ER. Will have patient on IV antibiotics. Will keep him NPO for now. 02/19/2019-n.p.o., continue IV antibiotics, reassess in a.m. possibly start oral clear liquids at that time. Will await surgical regulations. (2) Chronic systolic (congestive) heart failure Is this a current diagnosis for this admission?: Yes Plan: Not in exacerbation. He actually looks dry and dehydrated at the moment. He has not been eating or drinking a lot at home due to the abdominal pain and nausea. Will start him on gentle hydration due to underlying CHF. 02/19/2019-not in exacerbation at this time. Patient is n.p.o. secondary to diverticulitis. Will place patient on D5 one half normal saline at 75 mL an hour for gentle hydration as he is a diabetic. (3) Diabetes mellitus type 2 in nonobese Is this a current diagnosis for this admission?: Yes Plan: Sliding scale for now. 02/19/2019-sliding scale insulin every [address] patient on D5 one half normal saline at 75 mL an hour for gentle hydration. (4) CAD (coronary artery disease), [place] coronary artery Is this a current diagnosis for this admission?: Yes Plan: Stable. 02/19/2019-stable - Time Time Spent with patient: 15-24 minutes - Inpatient Certification Based on my medical assessment, after consideration of the patient's comorbidities, presenting symptoms, or acuity I expect that the services needed warrant INPATIENT care.: Yes I certify that my determination is in accordance with my understanding of Medicare's requirements for reasonable and necessary INPATIENT services [42 CFR 412.3e].: Yes Medical Necessity: Other - IV fluids, IV antibodies
--- NOTE | 2019-02-19 08:54 | PDOC PROGRESS REPORT ---
Subjective Progress Note for:: 02/19/19 Subjective:: Still having pain in the lower abdomen but slightly improved from yesterday. Reason For Visit: ACUTE DIVERTICULITIS, CHF Physical Exam Vital Signs: Temp Pulse Resp BP Pulse Ox 97.8 F 90 18 134/53 H 95 02/19/19 07:28 02/19/19 07:28 02/19/19 07:28 02/19/19 07:28 02/19/19 07:28 Intake & Output 02/18/19 02/19/19 02/20/19 06:59 06:59 06:59 Intake Total 700 100 Output Total 400 Balance 300 100 Weight 82.2 kg General appearance: PRESENT: no acute distress, cooperative Respiratory exam: PRESENT: clear to auscultation justyna Cardiovascular exam: PRESENT: RRR, systolic murmur GI/Abdominal exam: PRESENT: other - Mildly distended, lower abdominal tenderness to palpation with guarding. Results Laboratory Results: 02/18/19 08:39 02/18/19 08:39 02/18/19 02/18/19 02/18/19 08:39 08:39 09:07 WBC 8.4 RBC 4.36 Hgb 9.3 L Hct 30.0 L MCV 69 L MCH 21.4 L MCHC 31.0 L RDW 20.3 H Plt Count 187 Seg Neutrophils % Not Reportable Sodium 138.7 Potassium 4.4 Chloride 101 Carbon Dioxide 29 Anion Gap 9 BUN 27 H Creatinine 0.99 Est GFR ( Amer) > 60 Glucose 133 H Calcium 8.9 Total Bilirubin 0.8 AST 27 Alkaline Phosphatase 71 Total Protein 6.3 Albumin 3.7 Urine Color YELLOW Urine Appearance CLEAR Urine pH 7.0 Ur Specific [place] 1.017 Urine Protein >=500 H Urine Glucose (UA) NEGATIVE Urine Ketones TRACE H Urine Blood NEGATIVE Urine Nitrite NEGATIVE Ur Leukocyte Esterase NEGATIVE Urine WBC (Auto) 1 Urine RBC (Auto) 1 Impressions: Chest X-Ray 02/18/19 00:00 IMPRESSION: No obvious acute findings. Abdomen/Pelvis CT 02/18/19 08:28 IMPRESSION: Right lower quadrant distal sigmoid colon diverticulitis with secondary involvement of the bladder dome and appendix Assessment & Plan - Diagnosis (1) Acute diverticulitis Is this a current diagnosis for this admission?: Yes Plan: Localized diverticulitis. With his pain and tenderness recommend keeping the patient at bowel rest on antibiotics for now. Surgical service will follow along.
[2019-02-19] MEDS: DEXTROSE 5%-1/2 NORMAL SALINE 1,000 ML IV PRN (09:24)
[2019-02-19] MEDS: CIPROFLOXACIN 400 MG/D5W RTU 400 MG/200 ML RTUPB IV SCH ×2 (09:25→22:13)
[2019-02-19] MEDS ORDERED: ZOLPIDEM TARTRATE 5 MG TABLET PO PRN (22:32)
[2019-02-20] MEDS: HEPARIN SOD (PORCINE) 5,000 UNIT/ML 1 ML VIAL SUBCUT SCH ×2 (02:43→14:32)
[2019-02-20 04:40] LABS: HEMATOCRIT 26.6 % (37.9-51.0); HEMOGLOBIN 8.3 g/dL (13.5-17.0); MEAN CORPUSCULAR HEMOGLOBIN 21.5 pg (27.0-33.4); MEAN CORPUSCULAR HGB CONC 31.4 g/dL (32.0-36.0); MEAN CORPUSCULAR VOLUME 69 fl (80-97); PLATELET COUNT 155 10^3/uL (150-450); RED BLOOD COUNT 3.88 10^6/uL (4.35-5.55); RED CELL DISTRIBUTION WIDTH 20.2 % (11.5-14.0)
[2019-02-20 05:04] LABS: ANION GAP 8 (5-19); BLOOD UREA NITROGEN 28 mg/dL (7-20); CALCIUM 8.2 mg/dL (8.4-10.2); CARBON DIOXIDE 26 mmol/L (22-30); CHLORIDE 101 mmol/L (98-107); GLUCOSE 206 mg/dL (75-110)
[2019-02-20] MEDS: DEXTROSE 5%-1/2 NORMAL SALINE 1,000 ML IV PRN ×2 (05:35→17:13)
[2019-02-20] MEDS: METRONIDAZOLE 500 MG/NS RTU 500 MG/100 ML RTUPB IV SCH ×4 (05:35→23:39)
[2019-02-20] MEDS: INSULIN LISPRO 100 UNIT/ML 3 ML VIAL SUBCUT SCH ×3 (06:26→18:46)
--- NOTE | 2019-02-20 08:25 | PDOC PROGRESS REPORT ---
Subjective Progress Note for:: 02/20/19 Subjective:: 02/19/2019-crampy abdominal pain with flatulence 02/20/2019-abdominal pain improved. Reason For Visit: ACUTE DIVERTICULITIS, CHF Physical Exam Vital Signs: Temp Pulse Resp BP Pulse Ox 98.4 F 93 16 140/46 H 94 02/20/19 03:44 02/20/19 07:00 02/20/19 03:44 02/20/19 03:44 02/20/19 03:44 Intake & Output 02/19/19 02/20/19 02/21/19 06:59 06:59 06:59 Intake Total 700 1900 Output Total 400 975 Balance 300 925 Weight 82.2 kg 82.3 kg General appearance: PRESENT: no acute distress, well-developed, well-nourished Head exam: PRESENT: atraumatic, normocephalic Eye exam: PRESENT: conjunctiva pink, EOMI, PERRLA. ABSENT: scleral icterus Ear exam: PRESENT: normal external ear exam Mouth exam: PRESENT: moist, tongue midline Neck exam: ABSENT: carotid bruit, JVD, lymphadenopathy, thyromegaly Respiratory exam: PRESENT: clear to auscultation justyna. ABSENT: rales, rhonchi, wheezes Cardiovascular exam: PRESENT: RRR. ABSENT: diastolic murmur, rubs, systolic murmur Pulses: PRESENT: normal dorsalis pedis pul Vascular exam: PRESENT: normal capillary refill GI/Abdominal exam: PRESENT: hypoactive bowel sounds, soft. ABSENT: distended, guarding, mass, organolmegaly, rebound, tenderness Rectal exam: PRESENT: deferred Extremities exam: PRESENT: full ROM. ABSENT: calf tenderness, clubbing, pedal edema Neurological exam: PRESENT: alert, awake, oriented to person, oriented to place, oriented to time, oriented to situation, CN II-XII grossly intact. ABSENT: motor sensory deficit Psychiatric exam: PRESENT: appropriate affect, normal mood. ABSENT: homicidal ideation, suicidal ideation Skin exam: PRESENT: dry, intact, warm. ABSENT: cyanosis, rash Results Laboratory Results: 02/20/19 03:54 02/20/19 03:54 02/20/19 02/20/19 03:54 03:54 WBC 6.0 RBC 3.88 L Hgb 8.3 L Hct 26.6 L MCV 69 L MCH 21.5 L MCHC 31.4 L RDW 20.2 H Plt Count 155 Sodium 134.8 L Potassium 4.0 Chloride 101 Carbon Dioxide 26 Anion Gap 8 BUN 28 H Creatinine 0.96 Est GFR ( Amer) > 60 Glucose 206 H Calcium 8.2 L Impressions: Chest X-Ray 02/18/19 00:00 IMPRESSION: No obvious acute findings. Abdomen/Pelvis CT 02/18/19 08:28 IMPRESSION: Right lower quadrant distal sigmoid colon diverticulitis with secondary involvement of the bladder dome and appendix Assessment and Plan - Diagnosis (1) Acute diverticulitis Is this a current diagnosis for this admission?: Yes (2) Chronic systolic (congestive) heart failure Is this a current diagnosis for this admission?: Yes (3) Diabetes mellitus type 2 in nonobese Is this a current diagnosis for this admission?: Yes (4) CAD (coronary artery disease), [place] coronary artery Is this a current diagnosis for this admission?: Yes - Summary Assessment: 02/20/2019- Acute diverticulitis-patient being followed by surgery. N.p.o. at this time until okayed by surgery. Continue IV antibiotics and IV fluids. Chronic systolic heart failure-not in exacerbation. Patient's continues n.p.o. status secondary to diverticulitis continues on D5 one half normal saline at 75 mL an hour. Diabetes most type II nonobese-continue sliding scale insulin every 6 hours. CAD-stable. - Time Time Spent with patient: 15-24 minutes - Inpatient Certification Based on my medical assessment, after consideration of the patient's comorbidities, presenting symptoms, or acuity I expect that the services needed warrant INPATIENT care.: Yes I certify that my determination is in accordance with my understanding of Medicare's requirements for reasonable and necessary INPATIENT services [42 CFR 412.3e].: Yes Medical Necessity: Other - IV fluids, IV antibiotics
[2019-02-20] MEDS: CIPROFLOXACIN 400 MG/D5W RTU 400 MG/200 ML RTUPB IV SCH ×2 (09:44→21:19)
[2019-02-20] MEDS: MORPHINE SULFATE 10 MG/ML INJ IV PRN (10:36)
--- NOTE | 2019-02-20 11:57 | PDOC PROGRESS REPORT ---
Subjective Progress Note for:: 02/20/19 Subjective:: The patient appears to be comfortable, however she does have some right lower quadrant abdominal discomfort during activities Reason For Visit: ACUTE DIVERTICULITIS, CHF Physical Exam Vital Signs: Temp Pulse Resp BP Pulse Ox 98.9 F 95 18 137/55 H 92 02/20/19 07:36 02/20/19 07:36 02/20/19 07:36 02/20/19 07:36 02/20/19 07:36 Intake & Output 02/19/19 02/20/19 02/21/19 06:59 06:59 06:59 Intake Total 700 1900 Output Total 400 975 Balance 300 925 Weight 82.2 kg 82.3 kg General appearance: PRESENT: no acute distress Teeth exam: PRESENT: dental tenderness Respiratory exam: PRESENT: clear to auscultation justyna Cardiovascular exam: PRESENT: RRR GI/Abdominal exam: PRESENT: soft, tenderness - Right lower quadrant Results Laboratory Results: 02/20/19 03:54 02/20/19 03:54 02/20/19 02/20/19 03:54 03:54 WBC 6.0 RBC 3.88 L Hgb 8.3 L Hct 26.6 L MCV 69 L MCH 21.5 L MCHC 31.4 L RDW 20.2 H Plt Count 155 Sodium 134.8 L Potassium 4.0 Chloride 101 Carbon Dioxide 26 Anion Gap 8 BUN 28 H Creatinine 0.96 Est GFR ( Amer) > 60 Glucose 206 H Calcium 8.2 L Impressions: Chest X-Ray 02/18/19 00:00 IMPRESSION: No obvious acute findings. Abdomen/Pelvis CT 02/18/19 08:28 IMPRESSION: Right lower quadrant distal sigmoid colon diverticulitis with secondary involvement of the bladder dome and appendix Assessment & Plan - Diagnosis (1) Acute diverticulitis Is this a current diagnosis for this admission?: Yes - Plan Summary Plan Summary: Assessment: Acute, nonperforated sigmoid diverticulitis involving the appendix and abdominal bladder The patient still reports right lower quadrant pain Physical exam confirms the patient symptoms Blood work within normal limits Bowel function returned (2 bowel movements yesterday) Plan: Continue ice chips Continue IV antibiotics (Cipro Flagyl) Continue IV fluids Diet will be advanced in the next 1 to 2 days as soon as the patient becomes less symptomatic
[2019-02-20] MEDS ORDERED: ACETAMINOPHEN 1,000 MG/100 ML RTUPB IV SCH (12:00)
[2019-02-20] MEDS: ACETAMINOPHEN 1,000 MG/100 ML RTUPB IV SCH (18:46)
[2019-02-21] MEDS: INSULIN LISPRO 100 UNIT/ML 3 ML VIAL SUBCUT SCH ×5 (00:22→22:55)
[2019-02-21] MEDS: ACETAMINOPHEN 1,000 MG/100 ML RTUPB IV SCH ×4 (00:22→17:22)
[2019-02-21] MEDS: HEPARIN SOD (PORCINE) 5,000 UNIT/ML 1 ML VIAL SUBCUT SCH ×2 (01:02→15:21)
[2019-02-21] MEDS: DEXTROSE 5%-1/2 NORMAL SALINE 1,000 ML IV PRN (02:45)
[2019-02-21] MEDS: METRONIDAZOLE 500 MG/NS RTU 500 MG/100 ML RTUPB IV SCH ×3 (05:15→17:50)
[2019-02-21 05:47] LABS: HEMATOCRIT 25.2 % (37.9-51.0); MEAN CORPUSCULAR HEMOGLOBIN 21.4 pg (27.0-33.4); MEAN CORPUSCULAR HGB CONC 31.4 g/dL (32.0-36.0); MEAN CORPUSCULAR VOLUME 68 fl (80-97); PLATELET COUNT 172 10^3/uL (150-450); RED BLOOD COUNT 3.69 10^6/uL (4.35-5.55); RED CELL DISTRIBUTION WIDTH 19.8 % (11.5-14.0); WHITE BLOOD COUNT 5.5 10^3/uL (4.0-10.5)
[2019-02-21 05:49] LABS: HEMOGLOBIN 7.9 g/dL (13.5-17.0)
[2019-02-21 06:08] LABS: ANION GAP 8 (5-19); BLOOD UREA NITROGEN 23 mg/dL (7-20); CALCIUM 7.9 mg/dL (8.4-10.2); CARBON DIOXIDE 25 mmol/L (22-30); CHLORIDE 101 mmol/L (98-107); GLUCOSE 219 mg/dL (75-110); POTASSIUM 3.8 mmol/L (3.6-5.0)
--- NOTE | 2019-02-21 08:30 | PDOC PROGRESS REPORT ---
Subjective Progress Note for:: 02/21/19 Subjective:: 02/19/2019-crampy abdominal pain with flatulence 02/20/2019-abdominal pain improved. 02/21/2019-improved abdominal pain Reason For Visit: ACUTE DIVERTICULITIS, CHF Physical Exam Vital Signs: Temp Pulse Resp BP Pulse Ox 97.7 F 77 16 133/53 H 100 02/21/19 07:33 02/21/19 07:33 02/21/19 07:33 02/21/19 07:33 02/21/19 07:33 Intake & Output 02/20/19 02/21/19 02/22/19 06:59 06:59 06:59 Intake Total 1900 3100 Output Total 975 375 Balance 925 2725 Weight 82.3 kg 82.2 kg General appearance: PRESENT: no acute distress, well-developed, well-nourished Head exam: PRESENT: atraumatic, normocephalic Eye exam: PRESENT: conjunctiva pink, EOMI, PERRLA. ABSENT: scleral icterus Ear exam: PRESENT: normal external ear exam Mouth exam: PRESENT: moist, tongue midline Neck exam: ABSENT: carotid bruit, JVD, lymphadenopathy, thyromegaly Respiratory exam: PRESENT: clear to auscultation justyna. ABSENT: rales, rhonchi, wheezes Cardiovascular exam: PRESENT: RRR. ABSENT: diastolic murmur, rubs, systolic murmur Pulses: PRESENT: normal dorsalis pedis pul Vascular exam: PRESENT: normal capillary refill GI/Abdominal exam: PRESENT: hypoactive bowel sounds, soft. ABSENT: distended, guarding, mass, organolmegaly, rebound, tenderness Rectal exam: PRESENT: deferred Extremities exam: PRESENT: full ROM. ABSENT: calf tenderness, clubbing, pedal edema Neurological exam: PRESENT: alert, awake, oriented to person, oriented to place, oriented to time, oriented to situation, CN II-XII grossly intact. ABSENT: motor sensory deficit Psychiatric exam: PRESENT: appropriate affect, normal mood. ABSENT: homicidal ideation, suicidal ideation Skin exam: PRESENT: dry, intact, warm. ABSENT: cyanosis, rash Results Laboratory Results: 02/21/19 04:57 02/21/19 04:57 02/21/19 02/21/19 04:57 04:57 WBC 5.5 RBC 3.69 L Hgb 7.9 L Hct 25.2 L MCV 68 L MCH 21.4 L MCHC 31.4 L RDW 19.8 H Plt Count 172 Sodium 134.1 L Potassium 3.8 Chloride 101 Carbon Dioxide 25 Anion Gap 8 BUN 23 H Creatinine 0.82 Est GFR ( Amer) > 60 Glucose 219 H Calcium 7.9 L Impressions: Chest X-Ray 02/18/19 00:00 IMPRESSION: No obvious acute findings. Abdomen/Pelvis CT 02/18/19 08:28 IMPRESSION: Right lower quadrant distal sigmoid colon diverticulitis with secondary involvement of the bladder dome and appendix Assessment and Plan - Diagnosis (1) Acute diverticulitis Is this a current diagnosis for this admission?: Yes (2) Chronic systolic (congestive) heart failure Is this a current diagnosis for this admission?: Yes (3) Diabetes mellitus type 2 in nonobese Is this a current diagnosis for this admission?: Yes (4) CAD (coronary artery disease), [place] coronary artery Is this a current diagnosis for this admission?: Yes - Plan Summary Summary: 02/20/2019- Acute diverticulitis-patient being followed by surgery. N.p.o. at this time until okayed by surgery. Continue IV antibiotics and IV fluids. Chronic systolic heart failure-not in exacerbation. Patient's continues n.p.o. status secondary to diverticulitis continues on D5 one half normal saline at 75 mL an hour. Diabetes most type II nonobese-continue sliding scale insulin every 6 hours. CAD-stable. 02/21/2019 Acute diverticulitis. Surgery has signed off this a.m. Will give patient clear liquids advance as tolerated. Continue IV antibiotics and IV fluids at this time once patient is taking orals we will give him the antibiotic and oral form and most likely discharge in the a.m. Chronic systolic heart failure-remains clear of exacerbation at this time. Continues hydration although I will probably DC this today as patient is obtaining a diet and will advance diet as tolerated and DC IV fluids. Diabetes type 2 in nonobese-continue sliding scale at this time. We will continue home medication with patient is taking orals. CAD-stable - Time Time Spent with patient: 15-24 minutes - Inpatient Certification Based on my medical assessment, after consideration of the patient's comorbidities, presenting symptoms, or acuity I expect that the services needed warrant INPATIENT care.: Yes I certify that my determination is in accordance with my understanding of Medicare's requirements for reasonable and necessary INPATIENT services [42 CFR 412.3e].: Yes Medical Necessity: Other - IV fluids, IV antibiotics
[2019-02-21 08:47] LABS: ABSOLUTE RETICS # 0.053 10^6/uL (0.028-0.122); RETICULOCYTE COUNT (AUTO) 1.43 % (0.66-2.85)
--- NOTE | 2019-02-21 09:07 | PDOC PROGRESS REPORT ---
Subjective Progress Note for:: 02/21/19 Subjective:: Feels well. Hungry. Minimal abdominal discomfort. Reason For Visit: ACUTE DIVERTICULITIS, CHF Physical Exam Vital Signs: Temp Pulse Resp BP Pulse Ox 97.7 F 77 16 133/53 H 100 02/21/19 07:33 02/21/19 07:33 02/21/19 07:33 02/21/19 07:33 02/21/19 07:33 Intake & Output 02/20/19 02/21/19 02/22/19 06:59 06:59 06:59 Intake Total 1900 3100 Output Total 975 375 Balance 925 2725 Weight 82.3 kg 82.2 kg General appearance: PRESENT: no acute distress, cooperative Respiratory exam: PRESENT: clear to auscultation justyna Cardiovascular exam: PRESENT: RRR GI/Abdominal exam: PRESENT: other - Soft, nondistended, very mild tenderness in the lower abdomen without peritoneal signs. Markedly improved. Results Laboratory Results: 02/21/19 04:57 02/21/19 04:57 02/21/19 02/21/19 02/21/19 04:57 04:57 04:57 WBC 5.5 RBC 3.69 L Hgb 7.9 L Hct 25.2 L MCV 68 L MCH 21.4 L MCHC 31.4 L RDW 19.8 H Plt Count 172 Retic Count (auto) 1.43 Sodium 134.1 L Potassium 3.8 Chloride 101 Carbon Dioxide 25 Anion Gap 8 BUN 23 H Creatinine 0.82 Est GFR ( Amer) > 60 Glucose 219 H Calcium 7.9 L Impressions: Chest X-Ray 02/18/19 00:00 IMPRESSION: No obvious acute findings. Abdomen/Pelvis CT 02/18/19 08:28 IMPRESSION: Right lower quadrant distal sigmoid colon diverticulitis with secondary involvement of the bladder dome and appendix Assessment & Plan - Diagnosis (1) Acute diverticulitis Is this a current diagnosis for this admission?: Yes Plan: Responding well with conservative measures. May start a diet and advance as tolerated. Recommend 2 weeks of p.o. antibiotics at home. Follow-up with gastroenterology as an outpatient for endoscopic evaluation of his anemia. However, would not do a colonoscopy for at least 2 more weeks to allow healing at the site of diverticulitis. Surgery service signing off. Please call us for any concerns.
[2019-02-21] MEDS: CIPROFLOXACIN 400 MG/D5W RTU 400 MG/200 ML RTUPB IV SCH ×2 (09:52→22:55)
[2019-02-21 10:34] LABS: FOLATE > 20.00 ng/mL (>2.76); IRON(TIBC) < 10.1 ug/dL (49-181)
[2019-02-21] MEDS ORDERED: ZOLPIDEM TARTRATE 5 MG TABLET PO PRN (22:39)
[2019-02-21] MEDS ORDERED: CARBOXYMETHYLCELLULOSE SOD 0.5% 0.4 ML DROPERETTE OU PRN (22:40)
[2019-02-21] MEDS ORDERED: GABAPENTIN 300 MG CAPSULE PO ONE (22:45)
[2019-02-22] MEDS: ACETAMINOPHEN 1,000 MG/100 ML RTUPB IV SCH ×2 (00:28→05:17)
[2019-02-22] MEDS: METRONIDAZOLE 500 MG/NS RTU 500 MG/100 ML RTUPB IV SCH ×2 (00:28→05:16)
[2019-02-22] MEDS: HEPARIN SOD (PORCINE) 5,000 UNIT/ML 1 ML VIAL SUBCUT SCH (01:20)
[2019-02-22 07:01] LABS: HEMATOCRIT 26.9 % (37.9-51.0); HEMOGLOBIN 8.4 g/dL (13.5-17.0); MEAN CORPUSCULAR HEMOGLOBIN 21.3 pg (27.0-33.4); MEAN CORPUSCULAR HGB CONC 31.2 g/dL (32.0-36.0); MEAN CORPUSCULAR VOLUME 68 fl (80-97); PLATELET COUNT 198 10^3/uL (150-450); RED BLOOD COUNT 3.93 10^6/uL (4.35-5.55); RED CELL DISTRIBUTION WIDTH 19.8 % (11.5-14.0); WHITE BLOOD COUNT 5.1 10^3/uL (4.0-10.5)
[2019-02-22 07:21] LABS: ANION GAP 7 (5-19); BLOOD UREA NITROGEN 15 mg/dL (7-20); CARBON DIOXIDE 24 mmol/L (22-30); CHLORIDE 105 mmol/L (98-107); GLUCOSE 197 mg/dL (75-110); POTASSIUM 3.8 mmol/L (3.6-5.0)
[2019-02-22] MEDS: INSULIN LISPRO 100 UNIT/ML 3 ML VIAL SUBCUT SCH ×2 (08:25→12:39)
--- NOTE | 2019-02-22 08:30 | PDOC DISCHARGE SUMMARY ---
Impression - Admit/DC Date/PCP Admission Date/Primary Care Provider: 02/20/19 13:15 JIM AGUILAR MD Discharge Date: 02/22/19 - Discharge Diagnosis (1) Acute diverticulitis Is this a current diagnosis for this admission?: Yes (2) Chronic systolic (congestive) heart failure Is this a current diagnosis for this admission?: Yes (3) Diabetes mellitus type 2 in nonobese Is this a current diagnosis for this admission?: Yes (4) CAD (coronary artery disease), diom[place] coronary artery Is this a current diagnosis for this admission?: Yes - Assessment Summary: 02/20/2019- Acute diverticulitis-patient being followed by surgery. N.p.o. at this time until okayed by surgery. Continue IV antibiotics and IV fluids. Chronic systolic heart failure-not in exacerbation. Patient's continues n.p.o. status secondary to diverticulitis continues on D5 one half normal saline at 75 mL an hour. Diabetes most type II nonobese-continue sliding scale insulin every 6 hours. CAD-stable. 02/21/2019 Acute diverticulitis. Surgery has signed off this a.m. Will give patient clear liquids advance as tolerated. Continue IV antibiotics and IV fluids at this time once patient is taking orals we will give him the antibiotic and oral form and most likely discharge in the a.m. Chronic systolic heart failure-remains clear of exacerbation at this time. Continues hydration although I will probably DC this today as patient is obtaining a diet and will advance diet as tolerated and DC IV fluids. Diabetes type 2 in nonobese-continue sliding scale at this time. We will continue home medication with patient is taking orals. CAD-stable - Additional Information Resuscitation Status: Do Not Resuscitate Discharge Diet: As Tolerated Referrals: JIM AGUILAR MD [Primary Care Provider] - Follow up as needed Prescriptions: Ciprofloxacin HCl [Cipro 500 mg Tablet] 500 mg PO BID #10 tablet Metronidazole [Flagyl 500 mg Tablet] 500 mg PO TID #15 tablet Home Medications: Amlodipine Besylate [Norvasc 5 mg Tablet] 5 mg PO DAILY 02/14/19 Aspirin [Ecotrin 81 mg EC Tablet] 81 mg PO QHS 02/14/19 Atorvastatin Calcium [Lipitor 80 mg Tablet] 80 mg PO QHS 02/14/19 Carvedilol [Coreg 12.5 mg Tablet] 12.5 mg PO QHS 02/14/19 Carvedilol [Coreg 6.25 mg Tablet] 6.25 mg PO DAILY 02/14/19 Clopidogrel Bisulfate [Plavix 75 mg Tablet] 75 mg PO DAILY 02/14/19 Cyanocobalamin (Vitamin B-12) [Vitamin B-12] 1,000 mcg PO DAILY 02/14/19 Furosemide [Lasix 40 mg Tablet] 40 mg PO DAILY 02/14/19 Gabapentin [Neurontin 300 mg Capsule] 300 mg PO QHS 02/14/19 Glimepiride [Amaryl 4 mg Tablet] 8 mg PO DAILY@1700 02/14/19 Insulin Aspart (Niacinamide) [Fiasp 100 Unit/ml Flextouch] 10 unit SQ DAILYP PRN 02/14/19 Insulin Degludec [Tresiba Flextouch U-100] 50 unit SQ QAM 02/14/19 Metformin HCl [Glucophage XR 500 mg Tablet] 1,000 mg PO BID@1700,2200 02/14/19 Multivitamin [Tab-A-Johann (Multiple Vitamin) Tablet] 1 tab PO DAILY 02/14/19 Nitroglycerin [Nitrostat 0.4 mg (1/150 Gr) Tabs 25/Bottle] 1 tab SL Q5MP PRN 02/14/19 Ramipril [Altace 10 mg Capsule] 1 cap PO QHS 02/14/19 Tamsulosin HCl [Flomax 0.4 mg Cap.sr] 0.4 mg PO DAILY@1700 02/14/19 Zolpidem Tartrate [Ambien 5 mg Tablet] 5 mg PO HSP PRN 02/14/19 Ciprofloxacin HCl [Cipro 500 mg Tablet] 500 mg PO BID #10 tablet 02/22/19 Metronidazole [Flagyl 500 mg Tablet] 500 mg PO TID #15 tablet 02/22/19 History of Present Illiness History of Present Illness: JUAN Suleiman HOLLY JR is a 73 year old male who presented to the emergency room with lower abdominal pain after eating walnuts. Hospital Course Hospital Course: Patient is a 73-year-old male with past medical history of CAD, CABG, PVD with bilateral stents and a right-sided femoropopliteal bypass, hypertension, diabetes type 2 and chronic systolic heart failure with ejection fraction of 35 to 40%. Patient presented to the ER with lower abdominal pain after eating walnuts. Patient at that time described the pain is sharp in nature he denies any diarrhea but had some nausea but no vomiting. He did complain of chills at home and says he has regular non-watery, nonbloody bowel movements. Patient was admitted placed on IV Cipro and Flagyl made n.p.o. and hydrated with IV fluids. Over the course of time patient has improved sufficiently to return home at this time. I will continue patient on Cipro 500 mg p.o. twice daily for 5 days and Flagyl 500 mg p.o. every 8 hours x5 days. I will have patient follow-up with her primary care practitioner within 1 week. Patient is to have no oral intake of any kind of nut. Physical Exam Vital Signs: Temp Pulse Resp BP Pulse Ox 97.6 F 83 18 158/62 H 93 02/22/19 05:23 02/22/19 07:00 02/22/19 05:22 02/22/19 05:22 02/22/19 05:22 Intake & Output 02/21/19 02/22/19 02/23/19 06:59 06:59 06:59 Intake Total 3100 2700 Output Total 375 1950 Balance 2725 750 Weight 82.2 kg 84.8 kg General appearance: PRESENT: no acute distress, well-developed, well-nourished Head exam: PRESENT: atraumatic, normocephalic Eye exam: PRESENT: conjunctiva pink, EOMI, PERRLA. ABSENT: scleral icterus Ear exam: PRESENT: normal external ear exam Mouth exam: PRESENT: moist, tongue midline Neck exam: ABSENT: carotid bruit, JVD, lymphadenopathy, thyromegaly Respiratory exam: PRESENT: clear to auscultation justyna. ABSENT: rales, rhonchi, wheezes Cardiovascular exam: PRESENT: RRR. ABSENT: diastolic murmur, rubs, systolic murmur Pulses: PRESENT: normal dorsalis pedis pul Vascular exam: PRESENT: normal capillary refill GI/Abdominal exam: PRESENT: normal bowel sounds, soft. ABSENT: distended, guarding, mass, organolmegaly, rebound, tenderness Rectal exam: PRESENT: deferred Extremities exam: PRESENT: full ROM. ABSENT: calf tenderness, clubbing, pedal edema Neurological exam: PRESENT: alert, awake, oriented to person, oriented to place, oriented to time, oriented to situation, CN II-XII grossly intact. ABSENT: motor sensory deficit Psychiatric exam: PRESENT: appropriate affect, normal mood. ABSENT: homicidal ideation, suicidal ideation Skin exam: PRESENT: dry, intact, warm. ABSENT: cyanosis, rash Results Laboratory Results: WBC 5.1 10^3/uL (4.0-10.5) 02/22/19 06:32 RBC 3.93 10^6/uL (4.35-5.55) L 02/22/19 06:32 Hgb 8.4 g/dL (13.5-17.0) L 02/22/19 06:32 Hct 26.9 % (37.9-51.0) L 02/22/19 06:32 MCV 68 fl (80-97) L 02/22/19 06:32 MCH 21.3 pg (27.0-33.4) L 02/22/19 06:32 MCHC 31.2 g/dL (32.0-36.0) L 02/22/19 06:32 RDW 19.8 % (11.5-14.0) H 02/22/19 06:32 Plt Count 198 10^3/uL (150-450) 02/22/19 06:32 Lymph % (Auto) Not Reportable 02/18/19 08:39 Meagher % (Auto) Not Reportable 02/18/19 08:39 Eos % (Auto) Not Reportable 02/18/19 08:39 Baso % (Auto) Not Reportable 02/18/19 08:39 Reticulocyte # 0.053 10^6/uL (0.028-0.122) 02/21/19 04:57 Absolute Neuts (auto) Not Reportable 02/18/19 08:39 Absolute Lymphs (auto) Not Reportable 02/18/19 08:39 Absolute Monos (auto) Not Reportable 02/18/19 08:39 Absolute Eos (auto) Not Reportable 02/18/19 08:39 Absolute Basos (auto) Not Reportable 02/18/19 08:39 Total Counted 100 02/18/19 08:39 Seg Neutrophils % Not Reportable 02/18/19 08:39 Seg Neuts % (Manual) 92 % (42-78) H 02/18/19 08:39 Band Neutrophils % 2 % (3-5) L 02/18/19 08:39 Lymphocytes % (Manual) 1 % (13-45) L 02/18/19 08:39 Monocytes % (Manual) 5 % (3-13) 02/18/19 08:39 Eosinophils % (Manual) 0 % (0-6) 02/18/19 08:39 Basophils % (Manual) 0 % (0-2) 02/18/19 08:39 Abs Neuts (Manual) 7.9 10^3/uL (1.7-8.2) 02/18/19 08:39 Abs Lymphs (Manual) 0.1 10^3/uL (0.5-4.7) L 02/18/19 08:39 Abs Monocytes (Manual) 0.4 10^3/uL (0.1-1.4) 02/18/19 08:39 Absolute Eos (Manual) 0.0 10^3/uL (0.0-0.6) 02/18/19 08:39 Abs Basophils (Manual) 0.0 10^3/uL (0.0-0.2) 02/18/19 08:39 Platelet Comment ADEQUATE 02/18/19 08:39 Hypochromasia SLIGHT 02/18/19 08:39 Poikilocytosis SLIGHT 02/18/19 08:39 Anisocytosis SLIGHT 02/18/19 08:39 Retic Count (auto) 1.43 % (0.66-2.85) 02/21/19 04:57 Sodium 136.2 mmol/L (137-145) L 02/22/19 06:32 Potassium 3.8 mmol/L (3.6-5.0) 02/22/19 06:32 Chloride 105 mmol/L (98-107) 02/22/19 06:32 Carbon Dioxide 24 mmol/L (22-30) 02/22/19 06:32 Anion Gap 7 (5-19) 02/22/19 06:32 BUN 15 mg/dL (7-20) 02/22/19 06:32 Creatinine 0.71 mg/dL (0.52-1.25) 02/22/19 06:32 Est GFR ( Amer) > 60 (>60) 02/22/19 06:32 Est GFR (MDRD) Non-Af > 60 (>60) 02/22/19 06:32 Glucose 197 mg/dL (75-110) H 02/22/19 06:32 POC Glucose 226 mg/dL (70-110) H 02/22/19 07:40 Calcium 8.0 mg/dL (8.4-10.2) L 02/22/19 06:32 Iron < 10.1 ug/dL (49-181) L 02/21/19 04:57 TIBC 296 ug/dL (250-450) 02/21/19 04:57 Iron Saturation UNABLE TO CALCULATE % (20% - 50%) 02/21/19 04:57 Ferritin 99.00 ng/mL (17.9-464.0) 02/21/19 04:57 Total Bilirubin 0.8 mg/dL (0.2-1.3) 02/18/19 08:39 Direct Bilirubin 0.1 mg/dL (0.0-0.4) 02/18/19 08:39 Neonat Total Bilirubin Not Reportable 02/18/19 08:39 Neonat Direct Bilirubin Not Reportable 02/18/19 08:39 Neonat Indirect Bili Not Reportable 02/18/19 08:39 AST 27 U/L (17-59) 02/18/19 08:39 ALT 13 U/L (<50) 02/18/19 08:39 Alkaline Phosphatase 71 U/L (38-126) 02/18/19 08:39 Total Protein 6.3 g/dL (6.3-8.2) 02/18/19 08:39 Albumin 3.7 g/dL (3.5-5.0) 02/18/19 08:39 Vitamin B12 > 1000.0 pg/mL (239-931) H 02/21/19 04:57 Folate > 20.00 ng/mL (>2.76) 02/21/19 04:57 Urine Color YELLOW 02/18/19 09:07 Urine Appearance CLEAR 02/18/19 09:07 Urine pH 7.0 (5.0-9.0) 02/18/19 09:07 Ur Specific [place] 1.017 02/18/19 09:07 Urine Protein >=500 mg/dL (NEGATIVE) H 02/18/19 09:07 Urine Glucose (UA) NEGATIVE mg/dL (NEGATIVE) 02/18/19 09:07 Urine Ketones TRACE mg/dL (NEGATIVE) H 02/18/19 09:07 Urine Blood NEGATIVE (NEGATIVE) 02/18/19 09:07 Urine Nitrite NEGATIVE (NEGATIVE) 02/18/19 09:07 Urine Bilirubin NEGATIVE (NEGATIVE) 02/18/19 09:07 Urine Urobilinogen NEGATIVE mg/dL (<2.0) 02/18/19 09:07 Ur Leukocyte Esterase NEGATIVE (NEGATIVE) 02/18/19 09:07 Urine WBC (Auto) 1 /HPF 02/18/19 09:07 Urine RBC (Auto) 1 /HPF 02/18/19 09:07 Urine Mucus (Auto) RARE /LPF 02/18/19 09:07 Urine Ascorbic Acid NEGATIVE (NEGATIVE) 02/18/19 09:07 Impressions: Chest X-Ray 02/18/19 00:00 IMPRESSION: No obvious acute findings. Abdomen/Pelvis CT 02/18/19 08:28 IMPRESSION: Right lower quadrant distal sigmoid colon diverticulitis with secondary involvement of the bladder dome and appendix Plan Time Spent: Greater than 30 Minutes Stroke Is this a Stroke Patient?: No Acute Heart Failure - Is this a Heart Failure Patient?: No
[2019-02-22] MEDS ORDERED: TAMSULOSIN HCL 0.4 MG CAP.SR.24H PO SCH (10:00)
[2019-02-22] MEDS: CIPROFLOXACIN 400 MG/D5W RTU 400 MG/200 ML RTUPB IV SCH (11:13)
[2019-02-22 13:27] VITALS: BP 124/44
[2019-02-22] MEDS ORDERED: ACETAMINOPHEN 325 MG TABLET PO SCH (13:30)
[2019-02-22] MEDS ORDERED: METRONIDAZOLE 500 MG TABLET PO SCH (18:00)
[2019-02-22] MEDS ORDERED: GABAPENTIN 300 MG CAPSULE PO SCH (22:00)
== END 2019-02-22 13:48 | disposition home or self-care (01) | DRG 392 ==
LOC: ER 07:44 → INTOOBSV 12:46 → EH 12:46 → 3N 17:03 → OBSVTOIN 02-20 13:15
PROVIDERS: ADMIT Internal Medicine; ATTEND Internal Medicine
DX: K57.32 Diverticulitis of large intestine without perforation or abscess without bleeding (principal); I50.22 Chronic systolic (congestive) heart failure; E11.51 Type 2 diabetes mellitus with diabetic peripheral angiopathy without gangrene; I11.0 Hypertensive heart disease with heart failure; I25.10 Atherosclerotic heart disease of native coronary artery without angina pectoris; Z79.82 Long term (current) use of aspirin; Z79.4 Long term (current) use of insulin; Z66 Do not resuscitate; Z95.1 Presence of aortocoronary bypass graft; Z95.5 Presence of coronary angioplasty implant and graft; Z95.820 Peripheral vascular angioplasty status with implants and grafts; I25.2 Old myocardial infarction; Z95.0 Presence of cardiac pacemaker; Z87.891 Personal history of nicotine dependence; Z88.6 Allergy status to analgesic agent; Z88.1 Allergy status to other antibiotic agents; Z91.041 Radiographic dye allergy status; Z91.040 Latex allergy status
CPT/HCPCS: 36415; 71045; 74176; 80048; 80053; 81001; 82607; 82728; 82746; 82962; 83540; 83550; 85025; 85027; 85045; 87040; 93005; 93010; 96365; 96368; 96375; 99285; G0378; J0131; J0744; J1644; J1815; J2270; J2405; J3490

== ENCOUNTER 2019-03-13 07:32 | Emergency (ER) | payer MEDICARE, OTHER ==
[2019-03-13 09:19] LABS: ABSOLUTE BASOPHILS # (AUTO) 0.1 10^3/uL (0.0-0.2); ABSOLUTE EOSINOPHILS # (AUTO) 0.2 10^3/uL (0.0-0.6); ABSOLUTE LYMPHOCYTES (AUTO) 1.4 10^3/uL (0.5-4.7); ABSOLUTE MONOCYTES (AUTO) 0.6 10^3/uL (0.1-1.4); ABSOLUTE NEUT (AUTO) 4.2 10^3/uL (1.7-8.2); BASOPHILS % (AUTO) 1.5 % (0-2); EOSINOPHILS % (AUTO) 2.8 % (0-6); HEMATOCRIT 29.4 % (37.9-51.0); HEMOGLOBIN 9.1 g/dL (13.5-17.0); MEAN CORPUSCULAR VOLUME 71 fl (80-97); MONOCYTES % (AUTO) 9.8 % (3-13); PLATELET COUNT 253 10^3/uL (150-450); RED BLOOD COUNT 4.15 10^6/uL (4.35-5.55); RED CELL DISTRIBUTION WIDTH 21.3 % (11.5-14.0); SEGMENTED NEUTROPHILS % (AUTO) 64.9 % (42-78); TOTAL CELLS COUNTED % (AUTO) 100 %; WHITE BLOOD COUNT 6.5 10^3/uL (4.0-10.5)
[2019-03-13 09:34] LABS: ALBUMIN 4.1 g/dL (3.5-5.0); ALKALINE PHOSPHATASE 79 U/L (38-126); ANION GAP 12 (5-19); ASPARTATE AMINO TRANSFERASE 19 U/L (17-59); BILIRUBIN,DIRECT 0.2 mg/dL (0.0-0.4); BILIRUBIN,TOTAL 0.6 mg/dL (0.2-1.3); BLOOD UREA NITROGEN 26 mg/dL (7-20); CALCIUM 9.3 mg/dL (8.4-10.2); CARBON DIOXIDE 27 mmol/L (22-30); CHLORIDE 103 mmol/L (98-107); GLUCOSE 106 mg/dL (75-110); POTASSIUM 4.7 mmol/L (3.6-5.0); TOTAL PROTEIN 7.1 g/dL (6.3-8.2)
--- NOTE | 2019-03-13 09:42 | RADIOLOGY REPORT (SQ) ---
EXAM DESCRIPTION: CHEST SINGLE VIEW COMPLETED DATE/TIME: 03/13/2019 9:25 am REASON FOR STUDY: sob COMPARISON: 02/18/2019 NUMBER OF VIEWS: One view. TECHNIQUE: Single frontal radiographic view of the chest acquired. LIMITATIONS: None. FINDINGS: LUNGS AND PLEURA: No opacities, masses or pneumothorax. No pleural effusion. MEDIASTINUM AND HILAR STRUCTURES: No masses. Contour normal. HEART AND VASCULAR STRUCTURES: Heart is enlarged. No failure. BONES: No acute findings. HARDWARE: Battery pack and leads are in place along with sternotomy wires. OTHER: No other significant finding. IMPRESSION: Cardiomegaly unchanged. No acute findings in the chest. TECHNICAL DOCUMENTATION: JOB ID: [id number] [employer]- All Rights Reserved Reading location - IP/workstation name: [email or web address]
[2019-03-13 09:45] LABS: TROPONIN I 0.043 ng/mL
--- NOTE | 2019-03-13 09:59 | EKG REPORT ---
SEVERITY:- ABNORMAL ECG - SINUS RHYTHM FIRST DEGREE AV BLOCK PROBABLE LVH WITH SECONDARY REPOL ABNRM : Confirmed by: Sonia Roth MD 13-Mar-2019 09:58:33
[2019-03-13] MEDS ORDERED: FUROSEMIDE INJ/PF 40 MG/4 ML SDV IV ONE (10:05)
--- NOTE | 2019-03-13 12:11 | ER Document Report ---
ED General - General Chief Complaint: Shortness Of Breath Stated Complaint: SHORTNESS OF BREATH Time Seen by Provider: 03/13/19 08:15 Primary Care Provider: JIM AGUILAR MD [Primary Care Provider] - Follow up as needed Mode of Arrival: Ambulatory Information source: Patient TRAVEL OUTSIDE OF THE [place] IN LAST 30 DAYS: Yes - HPI Notes: Patient presents with shortness of breath. He states that shortness of breath has been intermittent. He states it was worse when he laid flat or try to exert himself. Is been going on for 2 or 3 days. He has not had any chest pain or pressure. He has had a mild dry cough. But no fevers sweats or chills. He does have a history of congestive heart failure and has recently increased his diuretic dose. Patient states that he feels he has been on for 5 pounds recently. He states that he has a history of multiple heart stents as well as peripheral vascular stents. He states that his hand spinner recently retired. He states he is going to see Dr. Macias as his hand spinner but his first appointment is not for approximately 2 weeks. Patient's symptoms have been moderate. They have been intermittent. There is no known radiation of the symptoms. - Related Data Allergies/Adverse Reactions: aspirin [Aspirin] Allergy (Verified 03/13/19 07:43) cephalexin [From Keflex] Allergy (Verified 03/13/19 07:43) Hives iodine [Iodine] Allergy (Verified 03/13/19 07:43) Hives latex Allergy (Verified 03/13/19 07:43) Hives oxycodone HCl [From Percocet] Adverse Reaction (Verified 03/13/19 07:43) Hives sulfamethoxazole [From Bactrim] Adverse Reaction (Verified 03/13/19 07:43) Nausea trimethoprim [From Bactrim] Adverse Reaction (Verified 03/13/19 07:43) Nausea IV contrast Allergy (Uncoded 03/13/19 07:43) Hives Past Medical History - General Information source: Patient - Social History Smoking Status: Former Smoker Frequency of alcohol use: None Drug Abuse: None Family History: Reviewed & Not Pertinent, Other Patient has suicidal ideation: No Patient has homicidal ideation: No - Past Medical History Cardiac Medical History: Reports: Hx Congestive Heart Failure, Hx Coronary Artery Disease, Hx Heart Attack - X6, Hx Hypertension Pulmonary Medical History: Denies: Hx Asthma Neurological Medical History: Denies: Hx Cerebrovascular Accident, Hx Seizures Endocrine Medical History: Reports: Hx Diabetes Mellitus Type 2 - IDDM Renal/ Medical History: Denies: Hx Peritoneal Dialysis GI Medical History: Reports: Hx Diverticulitis. Denies: Hx Hepatitis, Hx Hiatal Hernia, Hx Ulcer Infectious Medical History: Denies: Hx Hepatitis Past Surgical History: Reports: Hx Cardiac Catheterization, Hx Cardiac Surgery - ICD, 17 stents, triple bypass, Hx Cholecystectomy, Hx Coronary Artery Bypass Graft, Hx Coronary Stent - x 10, Hx Open Heart Surgery, Hx Pacemaker, Hx Vascular Surgery - fem pop tp right leg - Immunizations Hx Diphtheria, Pertussis, Tetanus Vaccination: No Review of Systems - Review of Systems Constitutional: Malaise. denies: Chills, Fever Cardiovascular: denies: Chest pain, Palpitations Respiratory: Cough, Short of breath Gastrointestinal: denies: Diarrhea, Vomiting -: Yes All other systems reviewed and negative Physical Exam - Vital signs Vitals: Temp Pulse Resp BP Pulse Ox 97.4 F 82 20 124/56 L 97 03/13/19 07:35 03/13/19 07:35 03/13/19 07:35 03/13/19 07:35 03/13/19 07:35 Interpretation: Normal - General General appearance: Appears well, Alert In distress: None - HEENT Head: Normocephalic, Atraumatic Eyes: Normal Pupils: PERRL - Respiratory Respiratory status: No respiratory distress Chest status: Nontender Breath sounds: Other - Patient has crackles at the bilateral bases Chest palpation: Normal - Cardiovascular Rhythm: Regular Heart sounds: Normal auscultation Murmur: No - Abdominal Inspection: Normal Distension: No distension Bowel sounds: Normal Tenderness: Nontender Organomegaly: No organomegaly - Back Back: Normal, Nontender - Extremities General upper extremity: Normal inspection, Nontender, Normal color, Normal ROM, Normal temperature General lower extremity: Normal inspection, Nontender, Edema - 2+ pitting edema bilateral lower extremities, Normal color, Normal ROM, Normal temperature, Normal weight bearing. No: Charles's sign - Neurological Neuro grossly intact: Yes Cognition: Normal Orientation: AAOx4 [place] Coma Scale Eye Opening: Spontaneous [place] Coma Scale Verbal: Oriented Veronica Coma Scale Motor: Obeys Commands [place] Coma Scale Total: 15 Speech: Normal Motor strength normal: LUE, RUE, LLE, RLE Sensory: Normal - Psychological Associated symptoms: Normal affect, Normal mood - Skin Skin Temperature: Warm Skin Moisture: Dry Skin Color: Normal Course - Re-evaluation Re-evalutation: 03/13/19 12:08 Patient presents with shortness of breath and a history of congestive heart failure. Troponins are unremarkable as is EKG for ischemic changes. His x-ray is also unremarkable. He does have a slightly elevated BNP over his baseline. However he took an extra Lasix this morning and has peed a significant amount in the room and states he is now feeling better. I did ambulate the patient and his room air saturations stayed 100% the whole time. There was one episode where the nurse states he saw a O2 saturation of 86%. I have nursing the patient below 93 to 94%. The nurse states that when the saturation was low the patient was not labored or in any distress nor did the patient have any complaints. I am unsure that this saturation of 86% was real. I see this because when he is ambulated it is 100% the whole time. Patient is currently sitting the room comfortably with saturations of 95 to 96%. Patient states he feels much better would like to go home. I have discussed the case with his hand spinner Dr. Macias who will see him in the office. Dr. Macias states she will call the patient in the next day or 2 to get the patient in sooner than 2 weeks. I have also discussed the case with the patient the family as well as the daughter on the phone. I do not see any infectious causes. I am going to asked the patient to take double his usual Lasix dose until he can see Dr. Macias. - Vital Signs Vital signs: Temp Pulse Resp BP Pulse Ox 97.5 F 82 14 122/62 94 03/13/19 09:01 03/13/19 07:35 03/13/19 11:01 03/13/19 11:00 03/13/19 11:01 - Laboratory Result Diagrams: 03/13/19 09:00 03/13/19 09:00 Laboratory results interpreted by me: 03/13/19 03/13/19 03/13/19 09:00 09:00 09:00 RBC 4.15 L Hgb 9.1 L Hct 29.4 L MCV 71 L MCH 22.0 L MCHC 31.0 L RDW 21.3 H BUN 26 H NT-Pro-B Natriuret Pep 3990 H - Diagnostic Test Radiology reviewed: Image reviewed, Reports reviewed - EKG Interpretation by Me EKG shows normal: Sinus rhythm Rate: Normal - 72 Rhythm: NSR Voltage: Consistant with LVH Heart block present: 1st Degree Discharge - Discharge Clinical Impression: Acute exacerbation of CHF (congestive heart failure) Qualifiers: Heart failure type: systolic Qualified Code(s): I50.23 - Acute on chronic systolic (congestive) heart failure Condition: Stable Disposition: HOME, SELF-CARE Instructions: Congestive Heart Failure ([facility]) Additional Instructions: Please take a total of 80 mg of Lasix a day. You can take all of this in the morning if you like. Referrals: JOSSELIN MACIAS MD [ACTIVE STAFF] - Follow up tomorrow JIM AGUILAR MD [Primary Care Provider] - Follow up in 3-5 days
[2019-03-13 12:19] VITALS: BP 132/76
== END 2019-03-13 12:20 | disposition home or self-care (01) ==
LOC: ER 07:32
DX: I11.0 Hypertensive heart disease with heart failure (principal); I50.23 Acute on chronic systolic (congestive) heart failure; I44.0 Atrioventricular block, first degree; R06.02 Shortness of breath; R05 Cough; R53.81 Other malaise; E11.9 Type 2 diabetes mellitus without complications; I25.10 Atherosclerotic heart disease of native coronary artery without angina pectoris; Z79.899 Other long term (current) drug therapy; Z95.1 Presence of aortocoronary bypass graft; Z95.810 Presence of automatic (implantable) cardiac defibrillator; Z95.5 Presence of coronary angioplasty implant and graft; Z95.828 Presence of other vascular implants and grafts; Z87.891 Personal history of nicotine dependence; Z88.8 Allergy status to other drugs, medicaments and biological substances; Z88.1 Allergy status to other antibiotic agents; Z91.041 Radiographic dye allergy status
CPT/HCPCS: 36415; 71045; 80053; 83880; 84484; 85025; 93005; 93010; 99285

== ENCOUNTER 2019-05-09 18:20 | Emergency (ER) | payer MEDICARE, OTHER ==
--- NOTE | 2019-05-09 18:50 | ER Document Report ---
ED Medical Screen (RME) - General Chief Complaint: Leg Pain Stated Complaint: LEFT LEG PAIN Time Seen by Provider: 05/09/19 18:41 Primary Care Provider: IJM AGUILAR MD [Primary Care Provider] - Follow up as needed Mode of Arrival: Wheelchair Information source: Patient Notes: 73-year-old male patient presenting to the emergency department chief complaint of left lower extremity pain and swelling. Patient reports he had a stent placed to the femoral popliteal region yesterday. He states the pain and swelling has been ongoing since then. He does take aspirin and Plavix. Surgical incision noted to the medial aspect of the left lower extremity, surrounding erythema and induration noted. Tenderness to palpation over the posterior calf. Normal motor and sensation distal to area of concern. I have greeted and performed a rapid initial assessment of this patient. A comprehensive ED assessment and evaluation of the patient, analysis of test results and completion of the medical decision making process will be conducted by additional ED providers. I have specifically instructed the patient or family members with the patient to immediately return to any nursing staff should anything change in the patient's condition or with their chief complaint. This medical record was dictated with voice recognizing software. There may be grammatical, syntax errors that are unintended. TRAVEL OUTSIDE OF THE [place] IN LAST 30 DAYS: Yes - Related Data Allergies/Adverse Reactions: aspirin [Aspirin] Allergy (Verified 05/09/19 18:42) cephalexin [From Keflex] Allergy (Verified 05/09/19 18:42) Hives hydromorphone [From Dilaudid] Allergy (Verified 05/09/19 18:44) iodine [Iodine] Allergy (Verified 03/13/19 07:43) Hives latex Allergy (Verified 05/09/19 18:42) Hives oxycodone HCl [From Percocet] Adverse Reaction (Verified 05/09/19 18:42) Hives sulfamethoxazole [From Bactrim] Adverse Reaction (Verified 05/09/19 18:42) Nausea trimethoprim [From Bactrim] Adverse Reaction (Verified 05/09/19 18:42) Nausea IV contrast Allergy (Uncoded 05/09/19 18:42) Hives Past Medical History - Past Medical History Cardiac Medical History: Reports: Hx Congestive Heart Failure, Hx Coronary Artery Disease, Hx Heart Attack - X6, Hx Hypertension Pulmonary Medical History: Denies: Hx Asthma Neurological Medical History: Denies: Hx Cerebrovascular Accident, Hx Seizures Endocrine Medical History: Reports: Hx Diabetes Mellitus Type 2 - IDDM Renal/ Medical History: Denies: Hx Peritoneal Dialysis GI Medical History: Reports: Hx Diverticulitis. Denies: Hx Hepatitis, Hx Hiatal Hernia, Hx Ulcer Infectious Medical History: Denies: Hx Hepatitis Past Surgical History: Reports: Hx Cardiac Catheterization, Hx Cardiac Surgery - ICD, 17 stents, triple bypass, Hx Cholecystectomy, Hx Coronary Artery Bypass Graft, Hx Coronary Stent - x 10, Hx Open Heart Surgery, Hx Pacemaker, Hx Vascular Surgery - fem pop tp right leg - Immunizations Hx Diphtheria, Pertussis, Tetanus Vaccination: No Physical Exam - Vital signs Vitals: Temp Pulse Resp BP Pulse Ox 98.4 F 91 16 117/53 L 98 05/09/19 18:34 05/09/19 18:34 05/09/19 18:34 05/09/19 18:34 05/09/19 18:34 Course - Vital Signs Vital signs: Temp Pulse Resp BP Pulse Ox 98.4 F 91 16 117/53 L 98 05/09/19 18:34 05/09/19 18:34 05/09/19 18:34 05/09/19 18:34 05/09/19 18:34 Doctor's Discharge - Discharge Referrals: JIM AGUILAR MD [Primary Care Provider] - Follow up as needed
[2019-05-09 19:20] LABS: ABSOLUTE BASOPHILS # (AUTO) 0.1 10^3/uL (0.0-0.2); ABSOLUTE EOSINOPHILS # (AUTO) 0.5 10^3/uL (0.0-0.6); ABSOLUTE LYMPHOCYTES (AUTO) 1.2 10^3/uL (0.5-4.7); ABSOLUTE MONOCYTES (AUTO) 0.7 10^3/uL (0.1-1.4); EOSINOPHILS % (AUTO) 5.3 % (0-6); HEMATOCRIT 38.6 % (37.9-51.0); HEMOGLOBIN 12.9 g/dL (13.5-17.0); LYMPHOCYTES % (AUTO) 12.5 % (13-45); MEAN CORPUSCULAR HEMOGLOBIN 28.7 pg (27.0-33.4); MEAN CORPUSCULAR HGB CONC 33.5 g/dL (32.0-36.0); MEAN CORPUSCULAR VOLUME 86 fl (80-97); MONOCYTES % (AUTO) 7.2 % (3-13); PLATELET COUNT 266 10^3/uL (150-450); RED BLOOD COUNT 4.51 10^6/uL (4.35-5.55); RED CELL DISTRIBUTION WIDTH 23.1 % (11.5-14.0); TOTAL CELLS COUNTED % (AUTO) 100 %; WHITE BLOOD COUNT 9.5 10^3/uL (4.0-10.5)
[2019-05-09 19:48] LABS: ALBUMIN 3.7 g/dL (3.5-5.0); ALKALINE PHOSPHATASE 100 U/L (38-126); ANION GAP 12 (5-19); ASPARTATE AMINO TRANSFERASE 31 U/L (17-59); BILIRUBIN,DIRECT 0.1 mg/dL (0.0-0.4); BILIRUBIN,TOTAL 0.7 mg/dL (0.2-1.3); BLOOD UREA NITROGEN 24 mg/dL (7-20); CALCIUM 9.6 mg/dL (8.4-10.2); CARBON DIOXIDE 28 mmol/L (22-30); CHLORIDE 100 mmol/L (98-107); GLUCOSE 234 mg/dL (75-110); POTASSIUM 5.1 mmol/L (3.6-5.0); TOTAL PROTEIN 6.7 g/dL (6.3-8.2)
--- NOTE | 2019-05-09 20:29 | ER Document Report ---
Doctor's Note Notes: 05/09/19 20:28 No DVT, + blood flow in vein and artery, +DP pulse per doppler tech (unofficial read).
[2019-05-09 21:38] VITALS: BP 155/52
--- NOTE | 2019-05-09 21:42 | RADIOLOGY REPORT (SQ) ---
EXAM DESCRIPTION: US EXTREMITY VEINS LEFT COMPLETED DATE/TME: 05/09/2019 18:46 CLINICAL HISTORY: 73 years, Male, LLE swelling, pain COMPARISON: None. TECHNIQUE: LIMITATIONS: None. FINDINGS: The common femoral, femoral, popliteal, posterior tibial and peroneal veins are patent and compressible. Venous Doppler waveforms are unremarkable. IMPRESSION: No evidence of deep venous thrombosis. copyright 2010 [employer]- All Rights Reserved
--- NOTE | 2019-05-09 21:58 | ER Document Report ---
ED Extremity Problem, Lower - General Chief Complaint: Leg Swelling Stated Complaint: LEFT LEG PAIN Time Seen by Provider: 05/09/19 18:41 Primary Care Provider: JIM AGUILAR MD [Primary Care Provider] - Follow up in 3-5 days Mode of Arrival: Wheelchair Notes: 73-year-old male with history of peripheral vascular disease presents for left lower leg pain and swelling. Patient had a family pop stent/bypass completed at [place] on the . Patient was discharged yesterday. Patient's home health came today and was concerned about possible blood clot due to pain and swelling. Patient states he has 2 stents in his left leg that both failed previously and that is why he had the procedure done on the . Patient has a follow-up appointment with a vascular surgeon in 1 month. Patient denies any chest pain or shortness of breath. Patient denies any fevers. Patient denies any previous history of blood clot. TRAVEL OUTSIDE OF THE [place] IN LAST 30 DAYS: Yes - Related Data Allergies/Adverse Reactions: aspirin [Aspirin] Allergy (Verified 05/09/19 18:42) cephalexin [From Keflex] Allergy (Verified 05/09/19 18:42) Hives hydromorphone [From Dilaudid] Allergy (Verified 05/09/19 18:44) iodine [Iodine] Allergy (Verified 03/13/19 07:43) Hives latex Allergy (Verified 05/09/19 18:42) Hives oxycodone HCl [From Percocet] Adverse Reaction (Verified 05/09/19 18:42) Hives sulfamethoxazole [From Bactrim] Adverse Reaction (Verified 05/09/19 18:42) Nausea trimethoprim [From Bactrim] Adverse Reaction (Verified 05/09/19 18:42) Nausea IV contrast Allergy (Uncoded 05/09/19 18:42) Hives Past Medical History - General Information source: Patient - Social History Smoking Status: Never Smoker Chew tobacco use (# tins/day): No Frequency of alcohol use: None Drug Abuse: None Family History: Reviewed & Not Pertinent, Other Patient has suicidal ideation: No Patient has homicidal ideation: No - Past Medical History Cardiac Medical History: Reports: Hx Congestive Heart Failure, Hx Coronary Artery Disease, Hx Heart Attack - X6, Hx Hypertension Pulmonary Medical History: Denies: Hx Asthma Neurological Medical History: Denies: Hx Cerebrovascular Accident, Hx Seizures Endocrine Medical History: Reports: Hx Diabetes Mellitus Type 2 - IDDM Renal/ Medical History: Denies: Hx Peritoneal Dialysis GI Medical History: Reports: Hx Diverticulitis. Denies: Hx Hepatitis, Hx Hiatal Hernia, Hx Ulcer Infectious Medical History: Denies: Hx Hepatitis Past Surgical History: Reports: Hx Cardiac Catheterization, Hx Cardiac Surgery - ICD, 17 stents, triple bypass, Hx Cholecystectomy, Hx Coronary Artery Bypass Graft, Hx Coronary Stent - x 10, Hx Open Heart Surgery, Hx Pacemaker, Hx Vascular Surgery - fem pop tp right leg - Immunizations Hx Diphtheria, Pertussis, Tetanus Vaccination: No Review of Systems - Review of Systems Notes: Constitutional: Negative for fever. HENT: Negative for sore throat. Eyes: Negative for visual changes. Cardiovascular: Negative for chest pain. Respiratory: Negative for shortness of breath. Gastrointestinal: Negative for abdominal pain, vomiting or diarrhea. Genitourinary: Negative for dysuria. Musculoskeletal: Positive for left lower extremity pain/swelling. Negative for back pain. Skin: Negative for rash. Neurological: Negative for headaches, weakness or numbness. 10 point ROS negative except as marked above and in HPI. Physical Exam - Vital signs Vitals: Temp Pulse Resp BP Pulse Ox 98.4 F 91 16 117/53 L 98 05/09/19 18:34 05/09/19 18:34 05/09/19 18:34 05/09/19 18:34 05/09/19 18:34 - Notes Notes: GENERAL: Well-appearing, well-nourished and in no acute distress. HEAD: Atraumatic, normocephalic. EYES: Extraocular movements intact, sclera anicteric, conjunctiva are normal. NECK: Normal range of motion, supple without lymphadenopathy or JVD. EXTREMITIES: Normal range of motion, no pitting or edema. No clubbing or cyanosis. LLE: Mild swelling noted, incision site has mild surrounding erythema without significant swelling on medial aspect of left lower extremity, no pus, not hot to touch, distal pedal pulses 2+, leg does not feel cold * has picture of leg from yesterday and leg appears significantly less erythematous from the picture NEUROLOGICAL: Cranial nerves II through XII grossly intact. Normal speech, normal gait. PSYCH: Normal mood, normal affect. SKIN: Warm, Dry, normal turgor, no rashes or lesions noted. Course - Re-evaluation Re-evalutation: 05/09/19 73-year-old male presents with concern of possible DVT in his left lower extremity. Patient had a procedure done to his femoropopliteal on the left lower extremity on the at [facility]. Patient's incision when compared to picture from yesterday appears significantly less erythematous. No pus drainage. Areas not hot to touch. Mild swelling. Ultrasound shows no DVT. Report was printed out and given to patient and patient's . Strict return precautions were given. Patient voices understanding and agrees with plan of care. - Vital Signs Vital signs: Temp Pulse Resp BP Pulse Ox 98.1 F 81 16 155/52 H 98 05/09/19 21:24 05/09/19 21:24 05/09/19 21:24 05/09/19 21:24 05/09/19 21:24 - Laboratory Result Diagrams: 05/09/19 19:06 05/09/19 19:06 Laboratory results interpreted by me: 05/09/19 05/09/19 19:06 19:06 Hgb 12.9 L RDW 23.1 H Lymph % (Auto) 12.5 L Potassium 5.1 H BUN 24 H Glucose 234 H Discharge - Discharge Clinical Impression: Left leg swelling, History of peripheral vascular disease Condition: Stable Disposition: HOME, SELF-CARE Additional Instructions: Your ultrasound shows does not show any blood clots. Return immediately to ER if you start having any worsening symptoms, including worsening pain/swelling, worsening redness, pus drainage, area being hotter to touch than surrounding skin, fever, shortness of breath, chest pain, or any other symptoms that are concerning to you. Referrals: JIM AGUILAR MD [Primary Care Provider] - Follow up in 3-5 days
== END 2019-05-09 22:16 | disposition home or self-care (01) ==
LOC: ER 18:20
DX: M79.89 Other specified soft tissue disorders (principal); M79.605 Pain in left leg; I11.0 Hypertensive heart disease with heart failure; E11.9 Type 2 diabetes mellitus without complications; I50.9 Heart failure, unspecified; Z88.6 Allergy status to analgesic agent; Z91.040 Latex allergy status; Z88.3 Allergy status to other anti-infective agents; Z79.4 Long term (current) use of insulin; Z95.1 Presence of aortocoronary bypass graft; I25.2 Old myocardial infarction
CPT/HCPCS: 36415; 80053; 85025; 93971; 99284

== ENCOUNTER 2020-03-07 13:46 | Emergency (ER) | payer MEDICARE, OTHER ==
--- NOTE | 2020-03-07 14:14 | ER Document Report ---
ED Medical Screen (RME) - General Mode of Arrival: Ambulatory Information source: Patient TRAVEL OUTSIDE OF THE [place] IN LAST 30 DAYS: Yes - General Chief Complaint: Head Injury without LOC Stated Complaint: FALL/HEAD INJURY Time Seen by Provider: 03/07/20 14:03 Primary Care Provider: JIM AGUILAR MD [Primary Care Provider] - Follow up as needed Notes: 74-year-old male presented to ED after he fell hitting his head on the cement. He does have a large laceration to the back of his head. He states he was plans to move some rods in a carrier when he fell backwards hitting his head on the cement. I have ordered a CT head and neck as well as a cervical collar until he is seen by another provider. He states he does have multiple cardiac stents I have greeted and performed a rapid initial assessment of this patient. A comprehensive ED assessment and evaluation of the patient, analysis of test results and completion of medical decision making process will be conducted by an additional ED providers. (MARLON MONTOYA) - Related Data Allergies/Adverse Reactions: aspirin [Aspirin] Allergy (Verified 03/07/20 14:10) cephalexin [From Keflex] Allergy (Verified 03/07/20 14:10) Hives hydromorphone [From Dilaudid] Allergy (Verified 03/07/20 14:10) iodine [Iodine] Allergy (Verified 03/07/20 14:10) Hives latex Allergy (Verified 03/07/20 14:10) Hives oxycodone HCl [From Percocet] Adverse Reaction (Verified 03/07/20 14:10) Hives sulfamethoxazole [From Bactrim] Adverse Reaction (Verified 03/07/20 14:10) Nausea trimethoprim [From Bactrim] Adverse Reaction (Verified 03/07/20 14:10) Nausea IV contrast Allergy (Uncoded 03/07/20 14:10) Hives Past Medical History - Social History Chew tobacco use (# tins/day): No Frequency of alcohol use: None Drug Abuse: None - Past Medical History Cardiac Medical History: Reports: Hx Congestive Heart Failure, Hx Coronary Artery Disease, Hx Heart Attack - X6, Hx Hypertension Pulmonary Medical History: Denies: Hx Asthma Neurological Medical History: Denies: Hx Cerebrovascular Accident, Hx Seizures Endocrine Medical History: Reports: Hx Diabetes Mellitus Type 2 - IDDM Renal/ Medical History: Denies: Hx Peritoneal Dialysis GI Medical History: Reports: Hx Diverticulitis. Denies: Hx Hepatitis, Hx Hiatal Hernia, Hx Ulcer Infectious Medical History: Denies: Hx Hepatitis Past Surgical History: Reports: Hx Cardiac Catheterization, Hx Cardiac Surgery - ICD, 17 stents, triple bypass, Hx Cholecystectomy, Hx Coronary Artery Bypass Graft, Hx Coronary Stent - x 10, Hx Open Heart Surgery, Hx Pacemaker, Hx Vascular Surgery - fem pop tp right leg - Immunizations Hx Diphtheria, Pertussis, Tetanus Vaccination: No Physical Exam - Vital signs Vitals: Temp Pulse Resp BP Pulse Ox 97.6 F 72 18 148/81 H 99 03/07/20 13:58 03/07/20 13:58 03/07/20 13:58 03/07/20 13:58 03/07/20 13:58 Course - Vital Signs Vital signs: Temp Pulse Resp BP Pulse Ox 97.6 F 72 18 148/81 H 99 03/07/20 13:58 03/07/20 13:58 03/07/20 13:58 03/07/20 13:58 03/07/20 13:58 Doctor's Discharge - Discharge Referrals: JIM AGUILAR MD [Primary Care Provider] - Follow up as needed
--- NOTE | 2020-03-07 16:08 | RADIOLOGY REPORT (SQ) ---
EXAM DESCRIPTION: CT HEAD WITHOUT IMAGES COMPLETED DATE/TIME: 03/07/2020 3:39 pm REASON FOR STUDY: Fell hit his head on the cement COMPARISON: None. TECHNIQUE: Axial images acquired through the brain without intravenous contrast. Images reviewed wi th bone, brain and subdural windows. Images stored on PACS. All CT scanners at this facility use dose modulation, iterative reconstruction, and/or weight based d osing when appropriate to reduce radiation dose to as low as reasonably achievable (ALARA). [facility]: Dose Right [facility]: CareDose [facility]: Dose Right [facility]: Teradose 4D [facility]: Smart [employer] RADIATION DOSE: CT Rad equipment meets quality standard of care and radiation dose reduction techniq ues were employed. CTDIvol: 53.2 mGy. DLP: 991 mGy-cm. mGy. LIMITATIONS: None. FINDINGS: VENTRICLES: Normal size and contour. CEREBRUM: No mass effect. No hemorrhage. No midline shift. Normal cerna/white matter differentiatio n. No evidence for acute territorial infarction. CEREBELLUM: No mass effect. No hemorrhage. No alteration of density. No evidence for acute infarct ion. EXTRAAXIAL SPACES: No fluid collections. ORBITS AND GLOBE: Symmetrical contour of the globes. CALVARIUM: No depressed skull fracture. PARANASAL SINUSES: There is mucosal thickening at the right maxillary sinus. The remainder of the vi sualized paranasal sinuses are clear. SOFT TISSUES: No hematoma. IMPRESSION: No acute intracranial hemorrhage or depressed calvarial fracture. EVIDENCE OF ACUTE STROKE: NO. COMMENT: Quality ID # [id number]: Final reports with documentation of one or more dose reduction techniques (e.g., Automated exposure control, adjustment of the mA and/or kV according to patient size, use of iterative reconstruction technique) TECHNICAL DOCUMENTATION: JOB ID: [id number] [place]-[id number] 2010 [employer]- All Rights Reserved Reading location - IP/workstation name: [email or web address]
--- NOTE | 2020-03-07 16:14 | RADIOLOGY REPORT (SQ) ---
EXAM DESCRIPTION: CT CERVICAL SPINE WITHOUT IMAGES COMPLETED DATE/TIME: 03/07/2020 3:39 pm REASON FOR STUDY: Fell hit his head on the cement COMPARISON: None. TECHNIQUE: Axial images acquired through the cervical spine without intravenous contrast. Images re viewed with lung, soft tissue and bone windows. Reconstructed coronal and sagittal MPR images review ed. Images stored on PACS. All CT scanners at this facility use dose modulation, iterative reconstruction, and/or weight based d osing when appropriate to reduce radiation dose to as low as reasonably achievable (ALARA). [facility]: Dose Right [facility]: CareDose [facility]: Dose Right [facility]: Teradose 4D [facility]: Smart [employer] RADIATION DOSE: CT Rad equipment meets quality standard of care and radiation dose reduction techniq ues were employed. CTDIvol: 19.5 mGy. DLP: 399 mGy-cm. mGy. LIMITATIONS: None. FINDINGS: ALIGNMENT: Anatomic. MINERALIZATION: Normal. VERTEBRAL BODIES: No fractures or dislocation. DISCS: Multilevel disc space narrowing with osteophytes. FACETS, LATERAL MASSES, POSTERIOR ELEMENTS: Facet arthropathy. No fractures. No dislocation. No ac latanya findings. HARDWARE: None in the spine. VISUALIZED RIBS: No fractures. LUNG APICES AND SOFT TISSUES: No significant or acute findings. IMPRESSION: No acute fracture at the cervical spine. Degenerative changes. TECHNICAL DOCUMENTATION: JOB ID: [id number] Quality ID # [id number]: Final reports with documentation of one or more dose reduction techniques (e.g., Au tomated exposure control, adjustment of the mA and/or kV according to patient size, use of iterative reconstruction technique) 2010 [employer]- All Rights Reserved Reading location - IP/workstation name: [email or web address]
--- NOTE | 2020-03-07 19:04 | ER Document Report ---
ED Head/Face/Scalp Injury - General Chief Complaint: Head Injury without LOC Stated Complaint: FALL/HEAD INJURY Time Seen by Provider: 03/07/20 14:03 Primary Care Provider: JIM AGUILAR MD [Primary Care Provider] - Follow up as needed Mode of Arrival: Ambulatory Notes: 74-year-old man presenting to the emergency department with a complaint of injury to his head and neck. Apparently he fell outside on the concrete sustaining a laceration to the scalp. He denies loss of consciousness. He complains of some pain in the cervical region. He is on a blood thinner, denies any other associated injuries. TRAVEL OUTSIDE OF THE [place] IN LAST 30 DAYS: Yes - Related Data Allergies/Adverse Reactions: aspirin [Aspirin] Allergy (Verified 03/07/20 14:10) cephalexin [From Keflex] Allergy (Verified 03/07/20 14:10) Hives hydromorphone [From Dilaudid] Allergy (Verified 03/07/20 14:10) iodine [Iodine] Allergy (Verified 03/07/20 14:10) Hives latex Allergy (Verified 03/07/20 14:10) Hives oxycodone HCl [From Percocet] Adverse Reaction (Verified 03/07/20 14:10) Hives sulfamethoxazole [From Bactrim] Adverse Reaction (Verified 03/07/20 14:10) Nausea trimethoprim [From Bactrim] Adverse Reaction (Verified 03/07/20 14:10) Nausea IV contrast Allergy (Uncoded 03/07/20 14:10) Hives Past Medical History - General Information source: Patient - Social History Smoking Status: Never Smoker Chew tobacco use (# tins/day): No Frequency of alcohol use: None Drug Abuse: None Family History: Reviewed & Not Pertinent, Other - Past Medical History Cardiac Medical History: Reports: Hx Congestive Heart Failure, Hx Coronary Artery Disease, Hx Heart Attack - X6, Hx Hypertension Pulmonary Medical History: Denies: Hx Asthma Neurological Medical History: Denies: Hx Cerebrovascular Accident, Hx Seizures Endocrine Medical History: Reports: Hx Diabetes Mellitus Type 2 - IDDM Renal/ Medical History: Denies: Hx Peritoneal Dialysis GI Medical History: Reports: Hx Diverticulitis. Denies: Hx Hepatitis, Hx Hiatal Hernia, Hx Ulcer Infectious Medical History: Denies: Hx Hepatitis Past Surgical History: Reports: Hx Cardiac Catheterization, Hx Cardiac Surgery - ICD, 17 stents, triple bypass, Hx Cholecystectomy, Hx Coronary Artery Bypass Graft, Hx Coronary Stent - x 10, Hx Open Heart Surgery, Hx Pacemaker, Hx Vascular Surgery - fem pop tp right leg - Immunizations Hx Diphtheria, Pertussis, Tetanus Vaccination: No Review of Systems - Review of Systems Notes: Constitutional: Negative for fever. HENT: See HPI Eyes: Negative for visual changes. Cardiovascular: Negative for chest pain. Respiratory: Negative for shortness of breath. Gastrointestinal: Negative for abdominal pain, vomiting or diarrhea. Genitourinary: Negative for dysuria. Musculoskeletal: Negative for back pain. Skin: Negative for rash. Neurological: Negative for headaches, weakness or numbness. 10 point ROS negative except as marked above and in HPI. Physical Exam - Vital signs Vitals: Temp Pulse Resp BP Pulse Ox 97.6 F 72 18 148/81 H 99 03/07/20 13:58 03/07/20 13:58 03/07/20 13:58 03/07/20 13:58 03/07/20 13:58 - Notes Notes: PHYSICAL EXAMINATION: Physical Exam: General: Well-nourished well-developed in no acute distress HEENT: Estimate 3 cm laceration to the left parietal scalp, pupils equal round and reactive to light, MM moist,nares clear, oropharynx clear, airway patent Neck: supple, no adenopathy, no masses. Good range of motion Lungs: clear, no wheezing, no rales no rhonchi CVS: Regular rate and rhythm no murmur gallop or rub Abdomen: Soft, active, nontender, no masses, no hepatosplenomegaly Ext: No edema, clubbing or cyanosis. Neuro: Alert and responsive, moving all 4 extremities on command, cranial nerves intact, no focal findings Skin: Intact no open lesions, no rash PSYCH: Normal mood, normal affect. Course - Re-evaluation Re-evalutation: 03/07/20 19:09 Discussed the findings of the CT of the head and cervical spine with the patient. The c-collar is removed. And a repair of the scalp laceration is performed. Patient tolerated procedure well and is now being discharged home. - Vital Signs Vital signs: Temp Pulse Resp BP Pulse Ox 97.9 F 69 18 148/52 H 99 03/07/20 19:10 03/07/20 19:10 03/07/20 19:10 03/07/20 19:10 03/07/20 13:58 - Diagnostic Test Radiology reviewed: Image reviewed, Reports reviewed Radiology results interpreted by me: 03/07/20 19:[address] 03/07/20 14:10 IMPRESSION: No acute fracture at the cervical spine. Degenerative changes. Head CT 03/07/20 14:10 IMPRESSION: No acute intracranial hemorrhage or depressed calvarial fracture. EVIDENCE OF ACUTE STROKE: NO. Procedures - Laceration/Wound Repair Left Head Time completed: 19:00 Wound length (cm): 3 Wound's Depth, Shape: Linear Laceration pre-procedure: Other - There was cleaned with saline Wound explored: Clean Wound Repaired With: Dermabond - The wound was closed with Dermabond, 2 separate applications were applied with good approximation of the edges of the wound. Post-procedure NV exam normal: Yes Complications: No Discharge - Discharge Clinical Impression: Contusion of scalp Qualifiers: Encounter type: initial encounter Qualified Code(s): S00.03XA - Contusion of scalp, initial encounter Laceration of scalp Qualifiers: Encounter type: initial encounter Qualified Code(s): S01.01XA - Laceration without foreign body of scalp, initial encounter Fall Qualifiers: Encounter type: initial encounter Qualified Code(s): W19.XXXA - Unspecified fall, initial encounter Condition: Good Disposition: HOME, SELF-CARE Instructions: Scalp Laceration ([facility]) Additional Instructions: You are seen in the emergency department with a scalp laceration associated with a fall. The laceration was repaired with Dermabond. Please do not apply ointment to the area of the repair. You may use Tylenol for pain. HOME CARE INSTRUCTIONS & INFORMATION: Thank you for choosing us for your medical needs. We hope you're satisfied with the care you received. After you leave, you must properly care for your problem and, at the same time, observe its progress. Any condition can change. Some illnesses can change rapidly over hours or days. If your condition worsens, return to the Emergency Department or see your physician promptly. ABOUT YOUR X-RAYS AND EKG'S: If you had an EKG or X-rays taken, they have been read by the Emergency Physician. The X-rays and EKG's will also be read by a Radiologist or Insulation Technician within 24 hours. If discrepancies are noted, you will be notified by telephone. Please be certain the ED has a correct telephone number & address where you can be reached. Also, realize that some fractures or abnormalities do not show up on initial X-rays. If your symptoms continue, see your physician. ABOUT YOUR LABORATORY TEST: If you had laboratory tests, the results have been reviewed by the Emergency Physician. Some test results (for example cultures) may not be available for several days. You will be contacted if any test result shows you need additional treatment. Please be certain the ED has a correct telephone number and address where you can be reached. ABOUT YOUR MEDICATIONS: You will receive instructions on how to take your medicine on the prescription label you receive. Additional information may be provided by the Pharmacy. If you have questions afterwards, call the ED for clarification or further instructions. Some prescribed medications may cause drowsiness. Do not perform tasks such as driving a car or operating machinery without consulting your Pharmacist. If you feel you need a refill of pain medication, your condition will need re-evaluation. Please do not call for a refill of any medication. ABOUT YOUR SIGNATURE: Signature of this document acknowledges to followin. Understanding that you received emergency treatment and that you may be released before al medical problems are known or treated. Please be certain the ED has a correct phone number & address where you can be reached. 2. Acknowledgement that you will arrange for follow-up care as recommended. 3. Authorization for the Emergency Physician to provide information to your follow-up Physician in order to maximize your care. AT ANY TIME, IF YOUR SYMPTOMS CHANGE SIGNIFICANTLY OR WORSEN OR YOU DEVELOP NEW SYMPTOMS, RETURN TO THE EMERGENCY DEPARTMENT IMMEDIATELY FOR RE-EVALUATION. OUR GOAL IS TO PROVIDE EXCELLENT MEDICAL CARE! WE HOPE THAT WE HAVE MET YOUR EXPECTATIONS DURING YOUR EMERGENCY DEPARTMENT VISIT AND THAT YOU FEEL YOU HAVE RECEIVED EXCELLENT CARE! Referrals: JIM AGUILAR MD [Primary Care Provider] - Follow up as needed
[2020-03-07 19:10] VITALS: BP 148/52
== END 2020-03-07 19:30 | disposition home or self-care (01) ==
LOC: ER 13:46
PROC: 0HQ0XZZ Repair Scalp Skin, External Approach (ICD-10-PCS; principal; 2020-03-07)
DX: S01.01XA Laceration without foreign body of scalp, initial encounter (principal); S09.90XA Unspecified injury of head, initial encounter; M54.2 Cervicalgia; W18.30XA Fall on same level, unspecified, initial encounter; Z88.8 Allergy status to other drugs, medicaments and biological substances; Z88.1 Allergy status to other antibiotic agents; Z88.2 Allergy status to sulfonamides; I11.0 Hypertensive heart disease with heart failure; I50.9 Heart failure, unspecified; I25.10 Atherosclerotic heart disease of native coronary artery without angina pectoris; I25.2 Old myocardial infarction; E11.9 Type 2 diabetes mellitus without complications; Z79.4 Long term (current) use of insulin
CPT/HCPCS: 70450; 72125; 99284